=== PATIENT | female | born 1970 | race Caucasian/White ===

== ENCOUNTER 2020-07-11 01:28 | Emergency (ER) | payer MEDICAID, SELFPAY ==
[2020-07-11] VITALS (11 sets, daily range): BP systolic 133–193; BP diastolic 103–113; PULSE 92–102; RESP 18–22; TEMP 36.3; O2SAT 95–98; BMI 49.3
--- NOTE | 2020-07-11 01:43 | W.ED.ABDPA2 ---
HPI - Abdominal Pain General: Chief Complaint: Abdominal Pain Stated Complaint: kidney pain Time Seen by Provider: 07/11/20 01:35 Source: patient and EMS Mode of arrival: EMS Limitations: no limitations History of Present Illness: HPI narrative: Mrs. Ignacio is a very nice 50-year-old female who comes in complaining of 1 hours worth of suprapubic abdominal pain and low back pain. Patient states that this feels like a urinary tract infection to her. She has urinary frequency, urgency and dysuria. Patient initially had just suprapubic dull abdominal pain but now she has associated low back pain. The pain in her back is located across the iliac crest. She has no pain up higher or in the flanks. Patient does not have any vaginal discharge or bleeding and is postmenopausal. She is nauseated but denies any vomiting. She denies any change in her bowel habits such as diarrhea or constipation. Patient came in very quickly because she has a history of chronic kidney disease that she did not want a urinary tract infection to threaten her kidney function. Patient denies any exacerbating or alleviating factors. She denies any other complaints or concerns. Associated Symptoms: Reports dysuria and nausea; Denies chills, coffee ground emesis, constipation, GI cramping, diarrhea, fever(s), heartburn, hematochezia, hematuria, hematemesis, melena, syncope and vomiting Review of Systems Const: Denies: fever(s), chills, body aches, fatigue, malaise or diaphoresis Eyes: Denies: change in vision, blurry vision, photophobia, eye discomfort, eye discharge, eye redness or yellow eyes ENMT: Denies: throat pain, odynophagia, hoarseness, swelling of lips/tongue, ear or mastoid pain, ear discharge, change in hearing or nasal discharge Card: Denies: chest pain, palpitations, irregular heart rhythm, edema, lightheadedness, syncope, pre-syncope, dyspnea on exertion or orthopnea Resp: Denies: dyspnea, productive cough, non-productive cough, wheezing, hemoptysis or chest congestion GI: Reports: abdominal pain and nausea; Denies: vomiting, hematemesis, coffee ground emesis, heartburn, diarrhea, constipation, GI cramping, hematochezia or melena : Reports: dysuria, urinary frequency and urinary urgency; Denies: flank pain or hematuria Musc: Denies: neck pain, extremity pain, extremity swelling, joint pain, joint swelling, joint redness, joint warmth or joint stiffness Skin/Breast: Denies: rash, pruritus, erythema, skin pain or skin tenderness Neuro: Denies: headache(s), numbness in extremities, weakness in extremities, sensory changes, lack of coordination, difficulty walking, dizziness, vertigo, confusion, Slurred speech present or seizure-like activity Morgan/Lymph: Denies: easy bruising, easy bleeding, petechiae, purpura or enlarged lymph nodes All/Imm: Denies: urticaria, throat swelling, tongue swelling, facial swelling or acute wheezing PFSH ED PFSH: Medical History Asthma CKD (chronic kidney disease) COPD (chronic obstructive pulmonary disease) Depression DM type 2 (diabetes mellitus, type 2) Hypertension Migraines Neuropathy TIA (transient ischemic attack) Physical Exam Const: COMMON NORMALS: no acute distress, patient oriented x3, no limitations and alert GENERAL APPEARANCE: cooperative HENMT: COMMON NORMALS: normocephalic, atraumatic, external ears normal, EAC's normal and Normal external nose present HEAD & SCALP: normal to inspection, normocephalic and atraumatic FACE & SINUS: normal facial exam and face symmetric NOSE: Normal external nose present and Normal nares present EXTERNAL EAR: Yes external ears normal EXTERNAL AUDITORY CANAL: EAC's normal MOUTH: Normal oral and palatal mucosa present, lip normal and tongue normal Eye: COMMON NORMALS: Equal, round and reactive pupils present and conjunctivae normal GENERAL EYE: appearance normal, both eyes and all related structures ALIGNMENT: Yes alignment normal PERIORBITAL: periorbital findings normal EYELID: eyelids normal CONJUNCTIVA: Yes conjunctivae normal SCLERA: sclerae normal PUPIL: Yes Equal, round and reactive pupils present Neck/C-Spine: COMMON NORMALS: full ROM, no lymphadenopathy, supple, no meningeal signs and no JVD GENERAL: Yes normal visual inspection and Yes trachea midline Chest: COMMONS NORMALS: normal inspection of the chest and normal palpation of entire chest wall Resp: COMMON NORMALS: normal respiratory effort, No retractions, No use of accessory muscles and clear to auscultation bilaterally EFFORT & INSPECTION: Yes able to speak in complete sentences and Yes symmetric chest movement AUSCULTATION: clear to auscultation bilaterally, no crackles, no rales, no rhonchi and no wheezes Cardio: COMMON NORMALS: no JVD, regular rate, regular rhythm, S1 normal heart sound present and S2 normal heart sound present RATE: regular rate RHYTHM: regular rhythm HEART SOUNDS: S1 normal heart sound present, S2 normal heart sound present, no click, no gallops, no murmurs and no rubs GI: COMMON NORMALS: Soft to palpation and No hepatosplenomegaly present PALPATION: Yes Soft to palpation, Yes Tenderness to palpation present (GI) (Mild in the suprapubic area), No Guarding due to palpation present (GI), No Rigid due to palpation, Yes No hepatosplenomegaly present, No Hernia present, No Palpable mass present and No Pulsatile mass present : COMMON NORMALS: Yes no CVA tenderness BLADDER/KIDNEY EXAM: Yes no CVA tenderness EXTERNAL FEMALE EXAM: No Hernia present Back/Pelvis: COMMON NORMALS: no CVA tenderness, thoracic and lumbar spine normal to inspection, no thoracic nor lumbar tenderness and thoraco-lumbar ROM normal Extremity: COMMON NORMALS: normal to inspection, full ROM, capillary refill normal, no joint enlargement, no clubbing, cyanosis or edema and no calf tenderness Neuro: COMMON NORMALS: patient oriented x3, CN's II-XII intact bilaterally, moves all extremities, no focal motor deficits and no sensory deficits noted SENSORIUM/ORIENTATION: Yes alert MENINGEAL SIGNS: Yes no meningeal signs SPEECH: speech normal Psych: COMMON NORMALS: mental status grossly normal, Normal thought process present, cooperative, normal affect, speech normal and activity/motor behavior normal SPEECH: Yes normal speech THOUGHT PROCESS: Normal thought process present Skin: COMMON NORMALS: no rashes or lesions noted, turgor normal, no jaundice, no petechiae and no mottling GENERAL SKIN EXAM: no rashes or lesions noted and turgor normal Course Vital Signs: Vital signs: Vital Signs Temperature 97.4 F L 07/11/20 01:29 Pulse Rate 102 H 07/11/20 01:29 Respiratory Rate 18 07/11/20 01:57 Blood Pressure 193/109 07/11/20 01:33 Pulse Oximetry 96 07/11/20 01:57 MDM - Abdominal Pain MDM Narrative: Medical decision making narrative: [id number] -Ms. Ignacio is a very nice 50-year-old female who comes in with burning/cramping suprapubic abdominal pain that radiated through to both sides of her back. On exam she has no evidence of tenderness at McBurney's point or in the right lower quadrant. There is no CVA tenderness. Patient is afebrile, has normal white count is not vomiting. I believe this is a urinary tract infection isolated to her bladder. Patient states that is what it feels like her. I will give her an IV dose of Rocephin here and start her on cefdinir and Pyridium at home. Patient does not appear septic, does not appear DKA or have to have a more serious than a cystitis at this time. Differential Diagnosis: Differential diagnosis abdominal pain: Likely abdominal pain, acute appendicitis, calculus of kidney, constipation, diverticulitis, gastroenteritis, pancreatitis and small bowel obstruction Lab Data: Attestation: I reviewed the patient's lab results. Labs: Lab Results 07/11/20 07/11/20 07/11/20 Range/Units 01:47 01:47 01:47 WBC 7.9 (4.0-10.0) 10^3/ uL RBC 4.72 (4.1-5.3) 10^6/u L Hgb 13.9 (11.5-15.3) g/dL Hct 41.6 (37.0-47.0) % MCV 88.1 (81-99) fL MCH 29.4 (28.0-34.0) pg MCHC 33.4 (30.0-36.0) g/dL RDW 12.3 (12.1-15.1) % Plt Count 200 (130-400) 10^3/c mm MPV 10.3 (7.4-10.4) fL Neut % (Auto) 60.6 % Lymph % (Auto) 25.4 % [place] % (Auto) 8.1 % Eos % (Auto) 4.6 % Baso % (Auto) 0.8 % Neut # (Auto) 4.77 (1.8-7.7) 10^3/u L Lymph # (Auto) 2.0 (0.8-4.8) 10^3/u L [place] # (Auto) 0.6 (0.2-0.9) 10^3/u L Eos # (Auto) 0.4 (0.0-0.8) 10^3/u L Baso # (Auto) 0.1 (0.0-0.1) 10^3/u L Nucleated RBC % (a uto) 0 % Nucleated RBCs # 0.0 /100WBC Sodium 140 (136-145) mmol/L Potassium 3.9 (3.5-5.1) mmol/L Chloride 108 H (98-107) mmol/L Carbon Dioxide 23 (22-29) mmol/L Anion Gap 12.9 (5-19) BUN 9 (6-20) mg/dL Creatinine 1.0 H (0.5-0.9) mg/dL GFR Calculation 58.5 L (90-130) mL/min Glucose 303 H (65-115) mg/dL Calculated Osmolal ity 300 H (285-295) mOsm/k g Calcium 9.5 (8.5-10.5) mg/dL Total Bilirubin 0.5 (0.15-1.2) mg/dL AST 30 (0-32) U/L ALT 49 H (0-33) U/L Alkaline Phosphata se 81 (35-105) IU/L Total Protein 6.1 L (6.6-8.7) g/dL Albumin 4.1 (3.5-5.2) g/dL Globulin 2.0 (1.3-4.6) g/dL Lipase 35 (13-60) U/L HCG, Qual Negative (Negative) Urine Color (Yellow) Urine Appearance (CLEAR) Urine pH (5-7) Ur Specific Gravit y (1.005-1.030) Urine Protein (Negative) Urine Glucose (UA) (Normal) Urine Ketones (Negative) Urine Blood (Negative) Urine Nitrate (Negative) Urine Bilirubin (Negative) Urine Urobilinogen (Negative) mg/dL Ur Leukocyte Dulce ase (Negative) Urine RBC (0-2) /hpf Urine WBC (0-5) /hpf Ur Squamous Epith Cells (0-5) /hpf Amorphous Sediment Urine Bacteria (NONE) /hpf Urine Mucus /hpf 07/11/20 Range/Units 01:47 WBC (4.0-10.0) 10^3/ uL RBC (4.1-5.3) 10^6/u L Hgb (11.5-15.3) g/dL Hct (37.0-47.0) % MCV (81-99) fL MCH (28.0-34.0) pg MCHC (30.0-36.0) g/dL RDW (12.1-15.1) % Plt Count (130-400) 10^3/c mm MPV (7.4-10.4) fL Neut % (Auto) % Lymph % (Auto) % [place] % (Auto) % Eos % (Auto) % Baso % (Auto) % Neut # (Auto) (1.8-7.7) 10^3/u L Lymph # (Auto) (0.8-4.8) 10^3/u L [place] # (Auto) (0.2-0.9) 10^3/u L Eos # (Auto) (0.0-0.8) 10^3/u L Baso # (Auto) (0.0-0.1) 10^3/u L Nucleated RBC % (a uto) % Nucleated RBCs # /100WBC Sodium (136-145) mmol/L Potassium (3.5-5.1) mmol/L Chloride (98-107) mmol/L Carbon Dioxide (22-29) mmol/L Anion Gap (5-19) BUN (6-20) mg/dL Creatinine (0.5-0.9) mg/dL GFR Calculation (90-130) mL/min Glucose (65-115) mg/dL Calculated Osmolal ity (285-295) mOsm/k g Calcium (8.5-10.5) mg/dL Total Bilirubin (0.15-1.2) mg/dL AST (0-32) U/L ALT (0-33) U/L Alkaline Phosphata se (35-105) IU/L Total Protein (6.6-8.7) g/dL Albumin (3.5-5.2) g/dL Globulin (1.3-4.6) g/dL Lipase (13-60) U/L HCG, Qual (Negative) Urine Color Yellow (Yellow) Urine Appearance Cloudy A (CLEAR) Urine pH 5.0 (5-7) Ur Specific Gravit y 1.025 (1.005-1.030) Urine Protein 1+ H (Negative) Urine Glucose (UA) 4+ H (Normal) Urine Ketones 1+ H (Negative) Urine Blood 3+ H (Negative) Urine Nitrate Positive H (Negative) Urine Bilirubin Neg (Negative) Urine Urobilinogen 1 H (Negative) mg/dL Ur Leukocyte Dulce ase 2+ H (Negative) Urine RBC 0-4 H (0-2) /hpf Urine WBC Too numerous to c nt H (0-5) /hpf Ur Squamous Epith Cells None (0-5) /hpf Amorphous Sediment Not Reportable Urine Bacteria 3+ H (NONE) /hpf Urine Mucus 2+ /hpf Discharge Plan Discharge Patient Disposition: Home Clinical Impression: UTI (urinary tract infection) Qualifiers: Urinary tract infection type: acute cystitis Hematuria presence: without hematuria Qualified Code(s): N30.00 - Acute cystitis without hematuria Condition: Stable Prescriptions: New Pyridium 200 mg tablet 200 mg PO Q8H PRN (Reason: pain) 2 Days Qty: 6 RF: 0 cefdinir 300 mg capsule 300 mg PO Q12H 10 Days Qty: 20 RF: 0 No Action prazosin 2 mg Capsule 4 mg PO QPM RF: 0 Rexulti 2 mg Tablet 2 mg PO DAILY RF: 0 cetirizine 10 mg Tablet 10 mg PO DAILY RF: 0 metoprolol tartrate 100 mg Tablet 100 mg PO BID RF: 0 clopidogrel 75 mg Tablet 75 mg PO DAILY RF: 0 lisinopril 10 mg Tablet 10 mg PO DAILY RF: 0 gabapentin 300 mg Capsule 300 mg PO TID RF: 0 hydroxyzine pamoate 25 mg Capsule 25 mg PO PRN PRN (Reason: Hypertension) RF: 0 eszopiclone 3 mg Tablet 3 mg PO BEDTIME RF: 0 topiramate 50 mg Capsule,Sprinkle,Er 24hr 50 mg PO DAILY RF: 0 duloxetine 60 mg Capsule, Delayed Rel Sprinkle 60 mg PO BID RF: 0 Discharge Orders: Discharge ED (Routine); Ordered 07/11/20 Ordered By: Silvia Barnard Referrals: Janessa Winslow DO [Physician] - 1-3 days Discharge Diet: Advance as tolerated Discharge Activity: Increase activity as tolerated Patient Instructions: Urinary Tract Infection in Women (ED) Activity Restrictions/Additional Instructions: Please return to the ER immediately for any of the signs or symptoms listed on your discharge instruction sheets, worsening/changing of your symptoms, you are not getting better as quickly as expected, or for ANY other cause or concerns. Return to the ER for worsening of your pain, fever, vomiting, or for any other cause for concern. Coding Level of Care Code ED Elementary Ell Teacher for Chg Fwd Exam Comprehensive
[2020-07-11 01:54] LABS: Basophils # 0.1 10^3/uL (0.0-0.1); Basophils % 0.8 %; Eosinophils # 0.4 10^3/uL (0.0-0.8); Eosinophils % 4.6 %; Hematocrit 41.6 % (37.0-47.0); Hemoglobin 13.9 g/dL (11.5-15.3); Lymphocytes % 25.4 %; Mean Corpuscular HGB Conc 33.4 g/dL (30.0-36.0); Mean Corpuscular Hemoglobin 29.4 pg (28.0-34.0); Mean Corpuscular Volume 88.1 fL (81-99); Mean Platelet Volume 10.3 fL (7.4-10.4); Monocytes # 0.6 10^3/uL (0.2-0.9); Monocytes % 8.1 %; Neutrophils # 4.77 10^3/uL (1.8-7.7); Neutrophils % 60.6 %; Nucleated Red Blood Cells % 0 %; Platelet Count 200 10^3/cmm (130-400); Red Blood Count 4.72 10^6/uL (4.1-5.3); Red Cell Distribution Width 12.3 % (12.1-15.1); White Blood Count 7.9 10^3/uL (4.0-10.0)
[2020-07-11] MEDS: ondansetron 2 mg/ML SDV 2 mL 4 MG IVP (01:55)
[2020-07-11] MEDS: sodium chloride 0.9% 1,000 ML 999 ML IV (01:57)
[2020-07-11] MEDS: morphine 4 mg/mL SDV 1 mL IVP (01:57)
[2020-07-11 02:04] LABS: HCG, Serum Qual Negative (Negative)
[2020-07-11 02:13] LABS: Alanine Aminotransferase 49 U/L (0-33); Albumin Level 4.1 g/dL (3.5-5.2); Alkaline Phosphatase 81 IU/L (35-105); Anion Gap 12.9 (5-19); Aspartate Amino Transferase 30 U/L (0-32); Blood Urea Nitrogen 9 mg/dL (6-20); Calcium 9.5 mg/dL (8.5-10.5); Carbon Dioxide 23 mmol/L (22-29); Chloride 108 mmol/L (98-107); Glomerular Filtration Rate 58.5 mL/min (90-130); Glucose 303 mg/dL (65-115); Lipase 35 U/L (13-60); Osmolality Calculated 300 mOsm/kg (285-295); Potassium 3.9 mmol/L (3.5-5.1); Sodium 140 mmol/L (136-145); Total Bilirubin 0.5 mg/dL (0.15-1.2); Total Protein 6.1 g/dL (6.6-8.7)
[2020-07-11 02:32] LABS: Glucose Urine UA 4+ (Normal); Protein Urine 1+ (Negative); Specific Gravity, Urine 1.025 (1.005-1.030); Urine Appearance Cloudy (CLEAR); Urine Color Yellow (Yellow)
[2020-07-11 02:33] LABS: Add Urine Culture? No; Bacteria Urine 3+ /hpf; Bilirubin Urine Neg (Negative); Blood Urine 3+ (Negative); Ketones Urine 1+ (Negative); Leukocyte Esterase Urine 2+ (Negative); Mucus Urine 2+ /hpf; Nitrate Urine Positive (Negative); RBC Urine 0-4 /hpf (0-2); Urobilinogen Urine 1 mg/dL (Negative); WBC Urine TOO NUMEROUS TO CNT /hpf (0-5)
[2020-07-11] MEDS: phenazopyridine 100 mg Tablet 200 MG PO (02:46)
[2020-07-11] MEDS: ciprofloxacin 500 mg Tablet PO (03:05)
[2020-07-11 03:18] LABS: Ketone (Acetest) Serum Negative (Negative)
== END 2020-07-11 03:57 | disposition home or self-care (01) ==
PROVIDERS: Emergency Provider Emergency Medicine
DX: N30.00 Acute cystitis without hematuria (principal); Z79.02 Long term (current) use of antithrombotics/antiplatelets; J44.9 Chronic obstructive pulmonary disease, unspecified; I10 Essential (primary) hypertension; Z86.73 Personal history of transient ischemic attack (TIA), and cerebral infarction without residual deficits; E11.40 Type 2 diabetes mellitus with diabetic neuropathy, unspecified
CPT/HCPCS: 12345; 80053; 81001; 82009; 83690; 84703; 85025; 96365; 96375; 99283; J0696; J2270; J2405; J7030

== ENCOUNTER 2020-08-11 19:08 | Emergency (ER) | payer MEDICAID, SELFPAY ==
--- NOTE | 2020-08-11 19:12 | XRR_ITS ---
PROCEDURE INFORMATION: Exam: XR Chest, 1 View Exam date and time: 08/11/2020 7:41 PM Age: 50 years old Clinical indication: Cough and shortness of breath TECHNIQUE: Imaging protocol: XR of the chest Views: 1 view. COMPARISON: No relevant prior studies available. FINDINGS: Lungs: Unremarkable. No consolidation. Pleural space: Unremarkable. No pleural effusion. No pneumothorax. Heart/Mediastinum: Unremarkable. No cardiomegaly. Bones/joints: Unremarkable. XR/XR chest 1V portable [id number] IMPRESSION: No acute findings.
[2020-08-11 19:23] VITALS: BP 166/120; PULSE 94; RESP 18; TEMP 36.7; O2SAT 98; BMI 49.3
--- NOTE | 2020-08-11 20:03 | W.ED.COVID ---
HPI - COVID General: Chief Complaint: COVID symptoms Stated Complaint: nausea, SOB, fever, muscle aches, coughing Time Seen by Provider: 08/11/20 19:30 Source: patient Mode of arrival: ambulatory Limitations: no limitations Triage information: Has fever, cough or shortness of breath. No known COVID + exposure last 14 days History of Present Illness: HPI Narrative: 50-year-old female who is concerned she may have Covid. She is here with her significant other who has had Covid-like symptoms as well and cough sick contacts at work. She states she had a cough over the last 10 days along with body aches. Patient here does not require any oxygen. She denies any worsening improving factors. COVID 19 common symptoms: positive chills, non-productive cough and body aches; negative headache(s), throat pain, nausea, vomiting or diarrhea COVID 19 other sytmptoms: negative chest pain COVID Results: Nasal/Oral Coronavirus 2019 PCR Pending 08/11/20 19:44 08/11/20 Review of Systems Const: Reports: chills and body aches Eyes: Denies: blurry vision or eye discomfort ENMT: Denies: throat pain or dental pain Card: Denies: chest pain Resp: Reports: non-productive cough GI: Denies: abdominal pain, nausea, vomiting or diarrhea : Denies: dysuria Musc: Denies: neck pain or back pain Skin/Breast: Denies: rash Neuro: Denies: headache(s) Psych: Denies: depression Morgan/Lymph: Denies: easy bruising All/Imm: Denies: urticaria PFS ED PFSH: Medical History Asthma CKD (chronic kidney disease) COPD (chronic obstructive pulmonary disease) Depression DM type 2 (diabetes mellitus, type 2) Hypertension Migraines Neuropathy TIA (transient ischemic attack) Physical Exam Const: COMMON NORMALS: no acute distress, patient oriented x3 and healthy appearing HENMT: COMMON NORMALS: normocephalic and atraumatic HEAD & SCALP: normocephalic and atraumatic Eye: COMMON NORMALS: Equal, round and reactive pupils present and EOMs intact bilaterally PUPIL: Yes Equal, round and reactive pupils present Neck/C-Spine: COMMON NORMALS: full ROM and supple Chest: COMMONS NORMALS: normal inspection of the chest and normal palpation of entire chest wall Resp: COMMON NORMALS: normal respiratory effort, No retractions, No use of accessory muscles and clear to auscultation bilaterally AUSCULTATION: clear to auscultation bilaterally Cardio: COMMON NORMALS: regular rate, regular rhythm and No murmurs present (Cardio) RATE: regular rate RHYTHM: regular rhythm GI: COMMON NORMALS: Normal to inspection, nondistended, normoactive bowel sounds present, Soft to palpation, non-tender and no masses PALPATION: Yes Soft to palpation Extremity: COMMON NORMALS: normal to inspection and full ROM Neuro: COMMON NORMALS: patient oriented x3, moves all extremities and no focal motor deficits Psych: COMMON NORMALS: mental status grossly normal, Normal thought process present and cooperative THOUGHT PROCESS: Normal thought process present Skin: COMMON NORMALS: no rashes or lesions noted and no wounds GENERAL SKIN EXAM: no rashes or lesions noted Course Vital Signs: Vital signs: Vital Signs Temperature 98.1 F 08/11/20 19:23 Pulse Rate 94 08/11/20 19:23 Respiratory Rate 18 08/11/20 19:23 Blood Pressure 166/120 08/11/20 19:23 Pulse Oximetry 98 08/11/20 19:23 MDM - COVID MDM Narrative: Medical decision making narrative: Patient presents here with Covid-like symptoms. She is well-appearing here not requiring any oxygen. Patient's x-ray is normal. We will do a Covid swab and she is stable for discharge. She is to return if worsening Imaging Data: CXR: Attestation: I personally reviewed and interpreted this imaging study as follows: My impression: No acute abnormality COVID Results: Nasal/Oral Coronavirus 2019 PCR Pending 08/11/20 19:44 08/11/20 Discharge Plan Discharge Patient Disposition: Home Clinical Impression: Suspected severe acute respiratory syndrome coronavirus 2 (SARS-CoV-2) infection, Suspected 2019-nCoV infection Condition: Stable Prescriptions: No Action prazosin 2 mg Capsule 4 mg PO QPM RF: 0 Rexulti 2 mg Tablet 2 mg PO DAILY RF: 0 cetirizine 10 mg Tablet 10 mg PO DAILY RF: 0 metoprolol tartrate 100 mg Tablet 100 mg PO BID RF: 0 clopidogrel 75 mg Tablet 75 mg PO DAILY RF: 0 lisinopril 10 mg Tablet 10 mg PO DAILY RF: 0 gabapentin 300 mg Capsule 300 mg PO TID RF: 0 hydroxyzine pamoate 25 mg Capsule 25 mg PO PRN PRN (Reason: Hypertension) RF: 0 eszopiclone 3 mg Tablet 3 mg PO BEDTIME RF: 0 topiramate 50 mg Capsule,Sprinkle,Er 24hr 50 mg PO DAILY RF: 0 duloxetine 60 mg Capsule, Delayed Rel Sprinkle 60 mg PO BID RF: 0 Cipro 500 mg tablet 500 mg PO BID Qty: 20 RF: 0 Humalog Pen 100 unit/mL Insulin Pen 20 unit SUBCUT TID RF: 0 Lantus U-100 Insulin 100 unit/mL Cartridge 50 unit SUBCUT QPM RF: 0 Victoza 3-Benedict 0.6 mg/0.1 mL (18 mg/3 mL) Pen Injector 1.2 mg SUBCUT DAILY RF: 0 Discharge Orders: Discharge ED (Routine); Ordered 08/11/20 Ordered By: Lennox Anthony Discharge Diet: Advance as tolerated Discharge Activity: Resume usual activity Patient Instructions: Upper Respiratory Infection (ED) Coding Level of Care Code ED Material Crew Supervisor for Jd Bellamy
[2020-08-11 20:16] VITALS: O2SAT 96
[2020-08-12 16:51] LABS: Coronavirus Test Green County Not Detected
== END 2020-08-11 20:17 | disposition home or self-care (01) ==
PROVIDERS: Emergency Provider Emergency Medicine
DX: Z20.828 Contact with and (suspected) exposure to other viral communicable diseases (principal); Z79.02 Long term (current) use of antithrombotics/antiplatelets; Z79.4 Long term (current) use of insulin; J44.9 Chronic obstructive pulmonary disease, unspecified; I10 Essential (primary) hypertension; Z86.73 Personal history of transient ischemic attack (TIA), and cerebral infarction without residual deficits; E11.40 Type 2 diabetes mellitus with diabetic neuropathy, unspecified
CPT/HCPCS: 12345; 71045; 87635; 99281; 99283

== ENCOUNTER 2020-09-18 18:08 | Emergency (ER) | payer MEDICAID, SELFPAY ==
[2020-09-18] VITALS (8 sets, daily range): BP systolic 118–174; BP diastolic 78–137; PULSE 84–128; RESP 14–18; TEMP 37.3; O2SAT 94–98; BMI 47.0
--- NOTE | 2020-09-18 18:31 | CTR_ITS ---
PROCEDURE INFORMATION: Exam: CT Abdomen And Pelvis With Contrast Exam date and time: 09/18/2020 7:14 PM Age: 50 years old Clinical indication: Abdominal pain; Generalized; Prior surgery; Surgery type: Tubal, gb; Patient HX: Gen. Abd pain since yesterday. Nausea, constipation since Tuesday. TECHNIQUE: Imaging protocol: Computed tomography of the abdomen and pelvis with contrast. Radiation optimization: All CT scans at this facility use at least one of these dose optimization techniques: automated exposure control; mA and/or kV adjustment per patient size (includes targeted exams where dose is matched to clinical indication); or iterative reconstruction. Contrast material: OMNI 300; Contrast volume: 95 ml; Contrast route: INTRAVENOUS (IV); COMPARISON: No relevant prior studies available. RADIATION DOSE METRICS: Total DLP (mGy-cm): 1963.69 FINDINGS: Liver: Unremarkable.No mass. Gallbladder and bile ducts: There has been a cholecystectomy. There is no common bile duct dilation. Pancreas: Normal. No ductal dilation. Spleen: Normal. No splenomegaly. Adrenal glands: Normal. No mass. Kidneys and ureters: There is no evidence of hydronephrosis. There is no evidence of renal calcifications. Stomach and bowel: There is no evidence of intestinal perforation or obstruction. There is no evidence of colitis/diverticulitis. Appendix: A normal appendix is identified. Intraperitoneal space: Unremarkable. No free air. No significant fluid collection. Vasculature: Unremarkable.No abdominal aortic aneurysm. Lymph nodes: Unremarkable.No enlarged lymph nodes. Urinary bladder: There is nonspecific bladder wall thickening. This may be related to incomplete distention. Reproductive: Probable uterine fibroid is noted. The uterus, ovaries and adnexa are unremarkable. Bones/joints: Unremarkable. No acute fracture. Soft tissues: Unremarkable. CT/CT abdomen pelvis w con* [id number] IMPRESSION: No acute abnormality. Radiation Dose CTDIVOL = (mGy): DLP = 1963.69 (mGy-cm)
[2020-09-18] MEDS: sodium chloride 0.9% 1,000 ML 999 ML IV (18:48)
[2020-09-18] MEDS: HYDROmorphone 1 mg/mL INJ 1 mL IVP (18:48)
[2020-09-18] MEDS: ondansetron 2 mg/ML SDV 2 mL 4 MG IVP (18:48)
[2020-09-18 18:54] LABS: Basophils % 0.4 %; Eosinophils # 0.1 10^3/uL (0.0-0.8); Hematocrit 46.9 % (37.0-47.0); Hemoglobin 16.1 g/dL (11.5-15.3); Lymphocytes # 0.9 10^3/uL (0.8-4.8); Lymphocytes % 9.5 %; Mean Corpuscular HGB Conc 34.3 g/dL (30.0-36.0); Mean Corpuscular Hemoglobin 28.9 pg (28.0-34.0); Mean Corpuscular Volume 84.1 fL (81-99); Monocytes # 0.9 10^3/uL (0.2-0.9); Neutrophils # 7.91 10^3/uL (1.8-7.7); Neutrophils % 79.6 %; Nucleated Red Blood Cells % 0 %; Platelet Count 193 10^3/cmm (130-400); Red Blood Count 5.58 10^6/uL (4.1-5.3); Red Cell Distribution Width 11.6 % (12.1-15.1); White Blood Count 9.9 10^3/uL (4.0-10.0)
--- NOTE | 2020-09-18 19:03 | W.ED.ABDPA2 ---
HPI - Abdominal Pain General: Chief Complaint: Abdominal Pain Stated Complaint: BILATERAL SIDE PAIN, PAINFUL URINATION Time Seen by Provider: 09/18/20 18:10 Source: patient Mode of arrival: ambulatory Limitations: no limitations History of Present Illness: HPI narrative: He 1-year-old female states she had bilateral flank pain that radiates to her abdomen. She states that the pain is been sharp in nature and rates it a 9 out of 10. She states it is worse in her right lower quadrant. She is also had very painful urination. She denies any discharge. She had slight headache and subjective fevers. MD elicited complaint: abdominal pain and flank pain Associated Symptoms: Reports dysuria; Denies chills and fever(s) Review of Systems Const: Denies: fever(s), chills, body aches or change in appetite Eyes: Denies: blurry vision or eye discomfort ENMT: Denies: throat pain or dental pain Card: Denies: chest pain Resp: Denies: dyspnea GI: Reports: abdominal pain : Reports: difficulty voiding and dysuria Musc: Denies: neck pain or back pain Skin/Breast: Denies: rash Neuro: Denies: headache(s) Psych: Denies: depression Morgan/Lymph: Denies: easy bruising All/Imm: Denies: urticaria PFSH ED PFSH: Medical History Asthma CKD (chronic kidney disease) COPD (chronic obstructive pulmonary disease) Depression DM type 2 (diabetes mellitus, type 2) Hypertension Migraines Neuropathy TIA (transient ischemic attack) Physical Exam Const: COMMON NORMALS: no acute distress, patient oriented x3 and healthy appearing HENMT: COMMON NORMALS: normocephalic and atraumatic HEAD & SCALP: normocephalic and atraumatic Eye: COMMON NORMALS: Equal, round and reactive pupils present and EOMs intact bilaterally PUPIL: Yes Equal, round and reactive pupils present Neck/C-Spine: COMMON NORMALS: full ROM and supple Chest: COMMONS NORMALS: normal inspection of the chest and normal palpation of entire chest wall Resp: COMMON NORMALS: normal respiratory effort, No retractions, No use of accessory muscles and clear to auscultation bilaterally AUSCULTATION: clear to auscultation bilaterally Cardio: COMMON NORMALS: regular rate, regular rhythm and No murmurs present (Cardio) RATE: regular rate RHYTHM: regular rhythm GI: COMMON NORMALS: Normal to inspection, nondistended, normoactive bowel sounds present, Soft to palpation and no masses PALPATION: Yes Soft to palpation and Yes Tenderness to palpation present (GI) Details: RLQ Extremity: COMMON NORMALS: normal to inspection and full ROM Neuro: COMMON NORMALS: patient oriented x3, moves all extremities and no focal motor deficits Psych: COMMON NORMALS: mental status grossly normal, Normal thought process present and cooperative THOUGHT PROCESS: Normal thought process present Skin: COMMON NORMALS: no rashes or lesions noted and no wounds GENERAL SKIN EXAM: no rashes or lesions noted Course Vital Signs: Vital signs: Vital Signs Temperature 99.1 F 09/18/20 18:12 Pulse Rate 101 H 09/18/20 20:00 Respiratory Rate 14 09/18/20 20:09 Blood Pressure 118/85 09/18/20 20:00 Pulse Oximetry 94 09/18/20 20:00 MDM - Abdominal Pain MDM Narrative: Medical decision making narrative: Patient presents here with dysuria and does have a urinary tract infection. CT showed no signs of pyelonephritis or appendicitis. She did have some chest pain after the Dilaudid likely from the opioid. Did an EKG and it was normal and it resolved very shortly after. I do not believe she has any signs of acute coronary syndrome. Will prescribe her ciprofloxacin with pain meds and nausea medicine. She is to follow-up with PCP in 3 to 5 days return to the ER if worsening. She understands and agrees to the plan. Lab Data: Labs: Lab Results 09/18/20 09/18/20 09/18/20 Range/Units 18:47 18:47 19:00 WBC 9.9 (4.0-10.0) 10^3/ uL RBC 5.58 H (4.1-5.3) 10^6/u L Hgb 16.1 H (11.5-15.3) g/dL Hct 46.9 (37.0-47.0) % MCV 84.1 (81-99) fL MCH 28.9 (28.0-34.0) pg MCHC 34.3 (30.0-36.0) g/dL RDW 11.6 L (12.1-15.1) % Plt Count 193 (130-400) 10^3/c mm MPV 10.0 (7.4-10.4) fL Neut % (Auto) 79.6 % Lymph % (Auto) 9.5 % [place] % (Auto) 9.0 % Eos % (Auto) 1.0 % Baso % (Auto) 0.4 % Neut # (Auto) 7.91 H (1.8-7.7) 10^3/u L Lymph # (Auto) 0.9 (0.8-4.8) 10^3/u L [place] # (Auto) 0.9 (0.2-0.9) 10^3/u L Eos # (Auto) 0.1 (0.0-0.8) 10^3/u L Baso # (Auto) 0.0 (0.0-0.1) 10^3/u L Nucleated RBC % (a uto) 0 % Nucleated RBCs # 0.0 /100WBC Sodium 133 L (136-145) mmol/L Potassium 3.8 (3.5-5.1) mmol/L Chloride 97 L (98-107) mmol/L Carbon Dioxide 24 (22-29) mmol/L Anion Gap 15.8 (5-19) BUN 13 (6-20) mg/dL Creatinine 1.1 H (0.5-0.9) mg/dL GFR Calculation 52.4 L (90-130) mL/min Glucose 326 H (65-115) mg/dL Calculated Osmolal ity 289 (285-295) mOsm/k g Calcium 9.1 (8.5-10.5) mg/dL Total Bilirubin 0.9 (0.15-1.2) mg/dL AST 15 (0-32) U/L ALT 28 (0-33) U/L Alkaline Phosphata se 126 H (35-105) IU/L Total Protein 6.7 (6.6-8.7) g/dL Albumin 4.0 (3.5-5.2) g/dL Globulin 2.7 (1.3-4.6) g/dL Lipase 15 (13-60) U/L Urine Color Yellow (Yellow) Urine Appearance Cloudy (CLEAR) Urine pH 5 (5-7) Ur Specific Gravit y 1.020 (1.005-1.030) Urine Protein 1+ H (Negative) Urine Glucose (UA) 4+ H (Normal) Urine Ketones 1+ H (Negative) Urine Blood 3+ H (Negative) Urine Nitrate Positive H (Negative) Urine Bilirubin Neg (Negative) Urine Urobilinogen Norm (Negative) mg/dL Ur Leukocyte Dulce ase 2+ H (Negative) Urine RBC 10-15 H (0-2) /hpf Urine WBC 25-40 H (0-5) /hpf Ur Squamous Epith Cells 0-4 H (0-5) /hpf Ur Transition Epit h Cell 0-4 /hpf Amorphous Sediment Not Reportable Urine Bacteria None (NONE) /hpf Imaging Data ^: CT Abd/Pel: Attestation: I personally reviewed and interpreted this imaging study as follows: Radiologist's impression: [address] [address] [address] Scan Report Signed Patient: Vanesa Ignacio Unit #: [id number] : 1970 Age/Sex: 50 / F ADM Date: 09/18/20 Loc: ER Room/Bed: Attending Dr: Ordering Provider/Ordering MD: Lennox Anthony MD Date of Service: 09/18/20 Procedure(s): CT abdomen pelvis w con* [id number] Accession Number(s): [id number] Report Number: [id number] PROCEDURE INFORMATION: Exam: CT Abdomen And Pelvis With Contrast Exam date and time: 09/18/2020 7:14 PM Age: 50 years old Clinical indication: Abdominal pain; Generalized; Prior surgery; Surgery type: Tubal, gb; Patient HX: Gen. Abd pain since yesterday. Nausea, constipation since Tuesday. TECHNIQUE: Imaging protocol: Computed tomography of the abdomen and pelvis with contrast. Radiation optimization: All CT scans at this facility use at least one of these dose optimization techniques: automated exposure control; mA and/or kV adjustment per patient size (includes targeted exams where dose is matched to clinical indication); or iterative reconstruction. Contrast material: OMNI 300; Contrast volume: 95 ml; Contrast route: INTRAVENOUS (IV); COMPARISON: No relevant prior studies available. RADIATION DOSE METRICS: Total DLP (mGy-cm): 1963.69 FINDINGS: Liver: Unremarkable.No mass. Gallbladder and bile ducts: There has been a cholecystectomy. There is no common bile duct dilation. Pancreas: Normal. No ductal dilation. Spleen: Normal. No splenomegaly. Adrenal glands: Normal. No mass. Kidneys and ureters: There is no evidence of hydronephrosis. There is no evidence of renal calcifications. Stomach and bowel: There is no evidence of intestinal perforation or obstruction. There is no evidence of colitis/diverticulitis. Appendix: A normal appendix is identified. Intraperitoneal space: Unremarkable. No free air. No significant fluid collection. Vasculature: Unremarkable.No abdominal aortic aneurysm. Lymph nodes: Unremarkable.No enlarged lymph nodes. Urinary bladder: There is nonspecific bladder wall thickening. This may be related to incomplete distention. Reproductive: Probable uterine fibroid is noted. The uterus, ovaries and adnexa are unremarkable. Bones/joints: Unremarkable. No acute fracture. Soft tissues: Unremarkable. CT/CT abdomen pelvis w con* [id number] IMPRESSION: No acute abnormality. EKG Data ^: EKG 1: Attestation: I personally reviewed and interpreted this EKG as follows: EKG interpretation date: 09/18/20 EKG interpretation time: 20:04 Interpretation: sinus tach hr [address] or t wave abnormalities qrs 101 qtc 360 Discharge Plan Discharge Patient Disposition: Home Clinical Impression: Cystitis Condition: Stable Prescriptions: [place] 5-325 mg tablet 1 tab PO Q6H PRN (Reason: pain) Qty: 14 RF: 0 ondansetron 4 mg tablet,disintegrating 4 mg PO Q6H PRN (Reason: nausea and vomiting) Qty: 14 RF: 0 ciprofloxacin HCl 500 mg tablet 500 mg PO Q8H Qty: 21 RF: 0 No Action prazosin 2 mg Capsule 4 mg PO QPM RF: 0 Rexulti 2 mg Tablet 2 mg PO DAILY RF: 0 cetirizine 10 mg Tablet 10 mg PO DAILY RF: 0 metoprolol tartrate 100 mg Tablet 100 mg PO BID RF: 0 clopidogrel 75 mg Tablet 75 mg PO DAILY RF: 0 lisinopril 10 mg Tablet 10 mg PO DAILY RF: 0 gabapentin 300 mg Capsule 300 mg PO TID RF: 0 hydroxyzine pamoate 25 mg Capsule 25 mg PO PRN PRN (Reason: Hypertension) RF: 0 eszopiclone 3 mg Tablet 3 mg PO BEDTIME RF: 0 topiramate 50 mg Capsule,Sprinkle,Er 24hr 50 mg PO DAILY RF: 0 duloxetine 60 mg Capsule, Delayed Rel Sprinkle 60 mg PO BID RF: 0 Cipro 500 mg tablet 500 mg PO BID Qty: 20 RF: 0 Humalog Pen 100 unit/mL Insulin Pen 20 unit SUBCUT TID RF: 0 Lantus U-100 Insulin 100 unit/mL Cartridge 50 unit SUBCUT QPM RF: 0 Victoza 3-Benedict 0.6 mg/0.1 mL (18 mg/3 mL) Pen Injector 1.2 mg SUBCUT DAILY RF: 0 Discharge Orders: Discharge ED (Routine); Ordered 09/18/20 Ordered By: Lennox Anthony Referrals: Bubba Hernandez [Primary Care Provider] - 1-3 days Discharge Diet: Advance as tolerated Discharge Activity: Resume usual activity Patient Instructions: Urinary Tract Infection in Women (ED), Opioid Safety Coding Level of Care Code ED Clamp Jig Assembler for Jd Fwd Exam Comprehensive
[2020-09-18 19:16] LABS: Alanine Aminotransferase 28 U/L (0-33); Alkaline Phosphatase 126 IU/L (35-105); Anion Gap 15.8 (5-19); Aspartate Amino Transferase 15 U/L (0-32); Blood Urea Nitrogen 13 mg/dL (6-20); Calcium 9.1 mg/dL (8.5-10.5); Carbon Dioxide 24 mmol/L (22-29); Chloride 97 mmol/L (98-107); Globulin 2.7 g/dL (1.3-4.6); Glomerular Filtration Rate 52.4 mL/min (90-130); Glucose 326 mg/dL (65-115); Lipase 15 U/L (13-60); Osmolality Calculated 289 mOsm/kg (285-295); Potassium 3.8 mmol/L (3.5-5.1); Sodium 133 mmol/L (136-145); Total Bilirubin 0.9 mg/dL (0.15-1.2); Total Protein 6.7 g/dL (6.6-8.7)
[2020-09-18 19:21] LABS: Urine Appearance Cloudy (CLEAR); Urine Color Yellow (Yellow); pH Urine 5 (5-7)
[2020-09-18 19:22] LABS: Add Urine Culture? Yes; Add Urine Microscopic? YES; Bilirubin Urine Neg (Negative); Blood Urine 3+ (Negative); Glucose Urine UA 4+ (Normal); Ketones Urine 1+ (Negative); Leukocyte Esterase Urine 2+ (Negative); Nitrate Urine Positive (Negative); Protein Urine 1+ (Negative); Squamous Epithelial Cell Urine 0-4 /hpf (0-5); Transitional Epi Cells Urine 0-4 /hpf; Urobilinogen Urine Norm (Negative); WBC Urine 25-40 /hpf (0-5)
[2020-09-18] MEDS: iohexol 300 mg/mL 100 mL Btl IV (19:26)
--- NOTE | 2020-09-18 19:57 | ECG_ITS ---
[facility] Test Date: 2020-09-18 Pat Name: Vanesa Ignacio Department: Room: Gender: Female Licensed Appraiser: : 1970 Requested By: Lennox Anthony Order Number: [id number] Mi MD: Harlan Pablo M.D. Measurements Intervals Lewis Rate: 100 P: 67 IL: 142 QRS: 78 QRSD: 101 T: 48 QT: 303 QTc: 391 Interpretive Statements SINUS TACHYCARDIA LOW QRS VOLTAGE IN PRECORDIAL LEADS [QRS DEFLECTION < 1.0 mV IN CHEST LEADS] NONSPECIFIC T-WAVE ABNORMALITY ABNORMAL RHYTHM ECG No previous ECG available for comparison Electronically Signed On 09-20-2020 19:13:26 DAIRY CLERK by Harlan Pablo M.D. [id number]
[2020-09-18] MEDS: ciprofloxacin 500 mg Tablet PO (20:08)
[2020-09-18] MEDS: morphine 4 mg/mL SDV 1 mL IVP (20:09)
== END 2020-09-18 20:52 | disposition home or self-care (01) ==
PROVIDERS: Emergency Provider Emergency Medicine
DX: N30.90 Cystitis, unspecified without hematuria (principal); N18.9 Chronic kidney disease, unspecified; J44.9 Chronic obstructive pulmonary disease, unspecified; E11.9 Type 2 diabetes mellitus without complications; I10 Essential (primary) hypertension; Z79.4 Long term (current) use of insulin
CPT/HCPCS: 74177; 80053; 81001; 83690; 85025; 87077; 87086; 87186; 93005; 96361; 96374; 96375; 99284; J1170; J2270; J2405; J7030; Q9967

== ENCOUNTER 2020-10-26 15:28 | Emergency (ER) | payer MEDICAID, SELFPAY ==
[2020-10-26 15:57] VITALS: BP 160/99; PULSE 85; RESP 14; TEMP 36.2; O2SAT 97; BMI 47.0
--- NOTE | 2020-10-26 16:25 | ED_ITS ---
HPI - Wound/Laceration General: Chief Complaint: Wound/Laceration Stated Complaint: FISH HOOK IN LLE Time Seen by Provider: 10/26/20 16:09 Source: patient Mode of arrival: ambulatory Limitations: no limitations History of Present Illness: HPI narrative: Patient is a 50-year-old female who presents to ED today with a complaint of fishhook to her left lower extremity that she sustained a few hours ago. Tetanus is not up-to-date. Onset (ago): hour(s) Extremity Location: Left: lower leg Place: outdoors Patient tetanus UTD: No Context: accidental Associated symptoms: Reports no associated symptoms Review of Systems Musc: Reports: extremity pain and other (fb to left leg) Neuro: Denies: numbness in extremities, weakness in extremities or sensory changes PFSH ED PFSH: Medical History Asthma CKD (chronic kidney disease) COPD (chronic obstructive pulmonary disease) Depression DM type 2 (diabetes mellitus, type 2) Hypertension Migraines Neuropathy TIA (transient ischemic attack) Physical Exam Const: COMMON NORMALS: no acute distress Extremity: OTHER: fishhook embedded in soft tissue of anterior left lower leg Procedures Foreign Body Removal Time Out Performed: no Site: left and lower extremity Description of foreign body: fish hook Sedation/Analgesia: none Technique: removal with forceps Confirmed by:: direct visualization Complications: none Post-procedure exam: awake, alert Neurovascular: normal distal pulse, distal light touch sensation intact, distal motor function normal and no signs of compartment syndrome Course Vital Signs: Vital signs: Vital Signs Temperature 97.1 F L 10/26/20 15:57 Pulse Rate 85 10/26/20 15:57 Respiratory Rate 14 10/26/20 15:57 Blood Pressure 160/99 10/26/20 15:57 Pulse Oximetry 97 10/26/20 15:57 MDM - Wound/Laceration MDM Narrative: Medical decision making narrative: fishhook removed w/o difficulty; tetanus updated Discharge Plan Discharge Patient Disposition: Home Clinical Impression: Acute foreign body of left lower leg Qualifiers: Encounter type: initial encounter Qualified Code(s): S80.852A - Superficial foreign body, left lower leg, initial encounter Condition: Stable Prescriptions: No Action Anderson 5-325 mg tablet 1 tab PO Q6H PRN (Reason: pain) Qty: 14 RF: 0 ondansetron 4 mg tablet,disintegrating 4 mg PO Q6H PRN (Reason: nausea and vomiting) Qty: 14 RF: 0 ciprofloxacin HCl 500 mg tablet 500 mg PO Q8H Qty: 21 RF: 0 prazosin 2 mg Capsule 4 mg PO QPM RF: 0 Rexulti 2 mg Tablet 2 mg PO DAILY RF: 0 cetirizine 10 mg Tablet 10 mg PO DAILY RF: 0 metoprolol tartrate 100 mg Tablet 100 mg PO BID RF: 0 clopidogrel 75 mg Tablet 75 mg PO DAILY RF: 0 lisinopril 10 mg Tablet 10 mg PO DAILY RF: 0 gabapentin 300 mg Capsule 300 mg PO TID RF: 0 hydroxyzine pamoate 25 mg Capsule 25 mg PO PRN PRN (Reason: Hypertension) RF: 0 eszopiclone 3 mg Tablet 3 mg PO BEDTIME RF: 0 topiramate 50 mg Capsule,Sprinkle,Er 24hr 50 mg PO DAILY RF: 0 duloxetine 60 mg Capsule, Delayed Rel Sprinkle 60 mg PO BID RF: 0 Cipro 500 mg tablet 500 mg PO BID Qty: 20 RF: 0 Humalog Pen 100 unit/mL Insulin Pen 20 unit SUBCUT TID RF: 0 Lantus U-100 Insulin 100 unit/mL Cartridge 50 unit SUBCUT QPM RF: 0 Victoza 3-Benedict 0.6 mg/0.1 mL (18 mg/3 mL) Pen Injector 1.2 mg SUBCUT DAILY RF: 0 Discharge Orders: Discharge ED (Routine); Ordered 10/26/20 Ordered By: Giulia Hayden Referrals: Bubba Hernandez [Primary Care Provider] - Activity Restrictions/Additional Instructions: Monitor for signs of infection such as redness, swelling, increased pain, or drainage. Please seek medical re-evaluation if these occur. Coding Level of Care Code ED Ceramic Mold Designer for Jd Bellamy
[2020-10-26] MEDS: tetanus-diphtheria tox (adult) 0.5 mL SDV IM (16:41)
[2020-10-26 16:47] VITALS: BP 159/90; PULSE 87; RESP 14; O2SAT 96
== END 2020-10-26 16:48 | disposition home or self-care (01) ==
PROVIDERS: Emergency Provider Physician Assistant
DX: S80.852A Superficial foreign body, left lower leg, initial encounter (principal); Z79.02 Long term (current) use of antithrombotics/antiplatelets; Z79.4 Long term (current) use of insulin; W26.8XXA Contact with other sharp object(s), not elsewhere classified, initial encounter; Z23 Encounter for immunization
CPT/HCPCS: 90471; 90714; 99282

== ENCOUNTER → 2020-11-11 14:33 | Outpatient (BNVA) | payer MEDICAID, SELFPAY | PROVIDERS: Visit Provider Psychiatry & Neurology Psychiatry | DX: F41.1 Generalized anxiety disorder (principal); F33.3 Major depressive disorder, recurrent, severe with psychotic symptoms | CPT/HCPCS: 99204 ==

== ENCOUNTER → 2020-11-12 14:25 | Outpatient (BNVA) | payer MEDICAID, SELFPAY | PROVIDERS: Visit Provider Internal Medicine | DX: E11.22 Type 2 diabetes mellitus with diabetic chronic kidney disease (principal); N18.30 Chronic kidney disease, stage 3 unspecified; E11.40 Type 2 diabetes mellitus with diabetic neuropathy, unspecified; Z79.4 Long term (current) use of insulin; G45.9 Transient cerebral ischemic attack, unspecified | CPT/HCPCS: 99204 ==

== ENCOUNTER → 2020-11-26 14:20 | Outpatient (BNVA) | payer MEDICAID, SELFPAY | PROVIDERS: Visit Provider Obstetrics & Gynecology | DX: Z12.4 Encounter for screening for malignant neoplasm of cervix (principal); N84.1 Polyp of cervix uteri; B37.3 Candidiasis of vulva and vagina | CPT/HCPCS: 88175; 88305 ==

== ENCOUNTER 2020-12-03 00:02 | Emergency (ER) | payer MEDICAID, SELFPAY ==
[2020-12-03 00:10] VITALS: BP 174/111; PULSE 113; RESP 12; TEMP 36.8; O2SAT 96; BMI 47.0
--- NOTE | 2020-12-03 00:14 | ECG_ITS ---
[facility] Test Date: 2020-12-03 Pat Name: Vanesa Ignacio Department: Room: Gender: Female Cotton Puller: : 1970 Requested By: Lennox Anthony Order Number: [id number] Mi MD: Noah Taylor M.D. Measurements Intervals [place] Rate: 106 P: 59 MA: 133 QRS: 35 QRSD: 83 T: 11 QT: 337 QTc: 448 Interpretive Statements SINUS TACHYCARDIA LOW QRS VOLTAGE IN PRECORDIAL LEADS [QRS DEFLECTION < 1.0 mV IN CHEST LEADS] NONSPECIFIC T-WAVE ABNORMALITY ABNORMAL RHYTHM ECG Compared to ECG 09/18/2020 20:04:31 No significant changes Electronically Signed On 12-03-2020 18:28:18 CDT by Noah Taylor M.D. [id number]
--- NOTE | 2020-12-03 00:25 | W.ED.GENADLT ---
HPI - General Adult General: Chief complaint: General Medical Stated complaint: n/low blood sugar Time Seen by Provider: 12/03/20 00:11 Source: patient Mode of arrival: ambulatory Limitations: no limitations History of Present Illness: HPI narrative: 50-year-old female history diabetes states that she has been feeling nauseous just not feeling real well. She took her blood sugar and it was 70 states that it is quite low for her. She denies taking too much of her insulin. She states she has had some palpitations as well and her heart rate is 105. She denies any chest pain or abdominal pain. States she has had some slight lightheadedness. Has had no vomiting or diarrhea. Associated symptoms: Reports nausea and palpitations; Deny dyspnea, headache(s) or rash Review of Systems Const: Denies: fever(s), chills, body aches or change in appetite Eyes: Denies: blurry vision or eye discomfort ENMT: Denies: throat pain or dental pain Card: Reports: palpitations Resp: Denies: dyspnea GI: Reports: nausea : Denies: dysuria Musc: Denies: neck pain or back pain Skin/Breast: Denies: rash Neuro: Denies: headache(s) Psych: Denies: depression Morgan/Lymph: Denies: easy bruising All/Imm: Denies: urticaria PFSH ED PFSH: Medical History Asthma CKD (chronic kidney disease) COPD (chronic obstructive pulmonary disease) Depression DM type 2 (diabetes mellitus, type 2) Hypertension Migraines Neuropathy TIA (transient ischemic attack) Surgical History History of cholecystectomy History of tubal ligation Family History Mother Cancer Stage 4 kidney cancer Chronic kidney disease (CKD) Diabetes Hypertension Grandmother Cancer Maternal-Lung cancer Family/Other Cancer Maternal Aunt--Unknown Father Chronic kidney disease (CKD) Diabetes Hyperlipidemia Hypertension Daughter Diabetes Grandfather Stroke Maternal Denies family history of Ovarian cyst Anesthesia complication Bleeding disorder Thyroid disease Social History Smoking and tobacco status: former smoker Quit status (tobacco): has quit using tobacco Year quit tobacco: 2008 Second hand smoke exposure: Yes Alcohol intake: current Alcohol intake frequency: holidays/special occasions only Physical Exam Const: COMMON NORMALS: no acute distress, patient oriented x3 and healthy appearing HENMT: COMMON NORMALS: normocephalic and atraumatic HEAD & SCALP: normocephalic and atraumatic Eye: COMMON NORMALS: Equal, round and reactive pupils present and EOMs intact bilaterally PUPIL: Yes Equal, round and reactive pupils present Neck/C-Spine: COMMON NORMALS: full ROM and supple Chest: COMMONS NORMALS: normal inspection of the chest and normal palpation of entire chest wall Resp: COMMON NORMALS: normal respiratory effort, No retractions, No use of accessory muscles and clear to auscultation bilaterally AUSCULTATION: clear to auscultation bilaterally Cardio: COMMON NORMALS: regular rhythm and No murmurs present (Cardio) RATE: tachycardic RHYTHM: regular rhythm GI: COMMON NORMALS: Normal to inspection, nondistended, normoactive bowel sounds present, Soft to palpation, non-tender and no masses PALPATION: Yes Soft to palpation Extremity: COMMON NORMALS: normal to inspection and full ROM Neuro: COMMON NORMALS: patient oriented x3, moves all extremities and no focal motor deficits Psych: COMMON NORMALS: mental status grossly normal, Normal thought process present and cooperative THOUGHT PROCESS: Normal thought process present Skin: COMMON NORMALS: no rashes or lesions noted and no wounds GENERAL SKIN EXAM: no rashes or lesions noted Course Vital Signs: Vital signs: Vital Signs Temperature 98.3 F 12/03/20 00:10 Pulse Rate 102 H 12/03/20 00:27 Respiratory Rate 23 H 12/03/20 00:27 Blood Pressure 128/81 12/03/20 00:27 Pulse Oximetry 95 12/03/20 00:27 MDM - General Adult MDM Narrative: Medical decision making narrative: Patient presents with nausea and she is feels much improved here after Zofran. Her glucose here has been normal. Does have slight hypokalemia and will treat with potassium at home. She is stable for discharge will place her on Zofran as well. She is return if worsening. Lab Data: Labs: Lab Results 12/03/20 12/03/20 12/03/20 Range/Units 00:18 00:24 00:24 WBC 7.7 (4.0-10.0) 10^3/ uL RBC 4.84 (4.1-5.3) 10^6/u L Hgb 14.0 (11.5-15.3) g/dL Hct 42.9 (37.0-47.0) % MCV 88.6 (81-99) fL MCH 28.9 (28.0-34.0) pg MCHC 32.6 (30.0-36.0) g/dL RDW 13.1 (12.1-15.1) % Plt Count 209 (130-400) 10^3/c mm MPV 9.8 (7.4-10.4) fL Neut % (Auto) 55.2 % Lymph % (Auto) 29.0 % [place] % (Auto) 8.3 % Eos % (Auto) 6.3 % Baso % (Auto) 0.8 % Neut # (Auto) 4.26 (1.8-7.7) 10^3/u L Lymph # (Auto) 2.2 (0.8-4.8) 10^3/u L [place] # (Auto) 0.6 (0.2-0.9) 10^3/u L Eos # (Auto) 0.5 (0.0-0.8) 10^3/u L Baso # (Auto) 0.1 (0.0-0.1) 10^3/u L Nucleated RBC % (a uto) 0 % Nucleated RBCs # 0.0 /100WBC Sodium 140 (136-145) mmol/L Potassium 3.2 L (3.5-5.1) mmol/L Chloride 104 (98-107) mmol/L Carbon Dioxide 25 (22-29) mmol/L Anion Gap 14.2 (5-19) BUN 11 (6-20) mg/dL Creatinine 1.1 H (0.5-0.9) mg/dL GFR Calculation 52.4 L (90-130) mL/min Glucose 130 H (65-115) mg/dL POC Glucose 124 H (70-110) mg/dL Calculated Osmolal ity 291 (285-295) mOsm/k g Calcium 9.0 (8.5-10.5) mg/dL Total Bilirubin 0.3 (0.15-1.2) mg/dL AST 15 (0-32) U/L ALT 14 (0-33) U/L Alkaline Phosphata se 77 (35-105) IU/L Total Protein 6.2 L (6.6-8.7) g/dL Albumin 4.2 (3.5-5.2) g/dL Globulin 2.0 (1.3-4.6) g/dL EKG Data^: EKG 1: Attestation: I personally reviewed and interpreted this EKG as follows: EKG interpretation date: 12/03/20 EKG interpretation time: 00:21 Interpretation: sinus tach hr [address] or t wave abnormalities qrs 83 qtc 399 Discharge Plan Discharge Patient Disposition: Home Clinical Impression: Hypokalemia, Nausea Condition: Stable Prescriptions: New ondansetron 4 mg tablet,disintegrating 4 mg PO Q6H PRN (Reason: nausea and vomiting) Qty: 14 RF: 0 potassium chloride 20 mEq packet 40 meq PO TID Qty: 30 RF: 0 No Action Lantus Solostar U-100 Insulin 100 unit/mL (3 mL) insulin pen 55 unit SUBCUT DAILY Qty: 50 RF: 3 Aimovig Autoinjector 70 mg/mL auto-injector 75 mg SUBCUT .monthly RF: 0 temazepam [Restoril] 15 mg capsule 15 mg PO .h.s. PRNRF: 0 albuterol sulfate 90 mcg/actuation HFA aerosol inhaler 1 puff inhalation Q4H PRNRF: 0 duloxetine 60 mg capsule,delayed release(DR/EC) 120 mg PO .h.s. RF: 0 fluconazole [Diflucan] 200 mg tablet 200 mg PO DAILY Qty: 5 RF: 0 Farxiga 10 mg tablet 10 mg PO DAILY RF: 0 ibuprofen 200 mg tablet 800 mg PO DAILY PRNRF: 0 pantoprazole [Protonix] 40 mg tablet,delayed release (DR/EC) 40 mg PO DAILY RF: 0 promethazine 12.5 mg tablet 12.5 mg PO Q6H PRNRF: 0 prazosin 5 mg capsule 10 mg PO .HS Qty: 60 RF: 1 Rexulti 2 mg tablet 2 mg PO DAILY Qty: 30 RF: 1 hydroxyzine pamoate 25 mg capsule 25 mg PO TID PRN (Reason: anxiety) Qty: 90 RF: 1 valacyclovir 1 gram tablet 1,000 mg PO DAILY Qty: 30 RF: 6 ondansetron 4 mg tablet,disintegrating 4 mg PO Q6H PRN (Reason: nausea and vomiting) Qty: 14 RF: 0 cetirizine 10 mg Tablet 10 mg PO DAILY RF: 0 clopidogrel 75 mg Tablet 75 mg PO DAILY RF: 0 lisinopril 10 mg tablet 40 mg PO DAILY RF: 0 gabapentin 300 mg capsule 300 mg PO TID RF: 0 topiramate 50 mg cap,sprinkle,ER 24hr dose pack 50 mg PO DAILY RF: 0 Victoza 3-Benedict 0.6 mg/0.1 mL (18 mg/3 mL) pen injector 1.8 mg SUBCUT DAILY RF: 0 insulin lispro 100 unit/mL insulin pen 25 unit SUBCUT TID RF: 0 metoprolol tartrate 100 mg tablet 100 mg PO DAILY RF: 0 Discharge Orders: Discharge ED (Routine); Ordered 12/03/20 Ordered By: Lennox Anthony Referrals: Bubba Hernandez [Primary Care Provider] - 1-3 days Discharge Diet: Advance as tolerated Discharge Activity: Resume usual activity Patient Instructions: Acute Nausea and Vomiting (ED) Coding Level of Care Code ED Youth Development Professional for Chg Fwd Exam Comprehensive
[2020-12-03] MEDS: ondansetron 2 mg/ML SDV 2 mL 4 MG IVP (00:26)
[2020-12-03 00:27] VITALS: BP 128/81; PULSE 102; RESP 23; O2SAT 95
[2020-12-03] MEDS: sodium chloride 0.9% 1,000 ML 999 ML IV (00:27)
[2020-12-03 00:32] LABS: Glucose Point of Care 124 mg/dL (70-110)
[2020-12-03 00:35] LABS: Basophils # 0.1 10^3/uL (0.0-0.1); Basophils % 0.8 %; Eosinophils # 0.5 10^3/uL (0.0-0.8); Eosinophils % 6.3 %; Hematocrit 42.9 % (37.0-47.0); Lymphocytes # 2.2 10^3/uL (0.8-4.8); Mean Corpuscular HGB Conc 32.6 g/dL (30.0-36.0); Mean Corpuscular Hemoglobin 28.9 pg (28.0-34.0); Mean Corpuscular Volume 88.6 fL (81-99); Mean Platelet Volume 9.8 fL (7.4-10.4); Monocytes # 0.6 10^3/uL (0.2-0.9); Monocytes % 8.3 %; Neutrophils # 4.26 10^3/uL (1.8-7.7); Neutrophils % 55.2 %; Nucleated Red Blood Cells % 0 %; Platelet Count 209 10^3/cmm (130-400); Red Blood Count 4.84 10^6/uL (4.1-5.3); Red Cell Distribution Width 13.1 % (12.1-15.1); White Blood Count 7.7 10^3/uL (4.0-10.0)
[2020-12-03 00:49] LABS: Alanine Aminotransferase 14 U/L (0-33); Albumin Level 4.2 g/dL (3.5-5.2); Alkaline Phosphatase 77 IU/L (35-105); Anion Gap 14.2 (5-19); Aspartate Amino Transferase 15 U/L (0-32); Blood Urea Nitrogen 11 mg/dL (6-20); Carbon Dioxide 25 mmol/L (22-29); Chloride 104 mmol/L (98-107); Glomerular Filtration Rate 52.4 mL/min (90-130); Glucose 130 mg/dL (65-115); Osmolality Calculated 291 mOsm/kg (285-295); Potassium 3.2 mmol/L (3.5-5.1); Sodium 140 mmol/L (136-145); Total Bilirubin 0.3 mg/dL (0.15-1.2); Total Protein 6.2 g/dL (6.6-8.7)
[2020-12-03] MEDS: potassium chloride ER 20 mEq Tablet 40 MEQ PO (01:25)
[2020-12-03 01:50] VITALS: BP 111/78; PULSE 88; RESP 16; O2SAT 96
== END 2020-12-03 01:51 | disposition home or self-care (01) ==
PROVIDERS: Emergency Provider Emergency Medicine
DX: E87.6 Hypokalemia (principal); R11.0 Nausea; Z79.02 Long term (current) use of antithrombotics/antiplatelets; Z79.4 Long term (current) use of insulin; J44.9 Chronic obstructive pulmonary disease, unspecified; I10 Essential (primary) hypertension; E11.40 Type 2 diabetes mellitus with diabetic neuropathy, unspecified; Z86.73 Personal history of transient ischemic attack (TIA), and cerebral infarction without residual deficits; Z87.891 Personal history of nicotine dependence
CPT/HCPCS: 36416; 80053; 82962; 85025; 93005; 96361; 96374; 99283; J2405; J7030

== ENCOUNTER 2020-12-08 14:25 | Outpatient (CLI) | payer MEDICAID, SELFPAY ==
--- NOTE | 2020-12-08 14:28 | MM_ITS ---
WS: [id number] BILATERAL DIGITAL SCREENING MAMMOGRAPHY WITH CAD CLINICAL INFORMATION: SCREENING HISTORY: Screening mammogram. No current complaints. COMPARISON: None. TECHNIQUE: Bilateral CC and MLO views. FINDINGS: Scattered fibroglandular densities bilaterally. Dystrophic benign calcification left breast. No suspi cious focal mass, asymmetry, calcifications, or architectural distortion. No evidence of malignancy. MM/[place] [id number] IMPRESSION: BI-RADS: 2-Benign FOLLOW UP: 1 Year Follow-up Recommend return to annual screening mammography.
--- NOTE | 2020-12-08 15:20 | USCV_ITS ---
Vanesa Ignacio Age: 50 Gender: F : 1970 Exam Date: 12/08/2020 15:51 Ordering Phys: Bubba Hernandez Technologist: Henrique Carlton Exam Location: [facility] Indication: RT SIDE HEART FAILURE BP: 138 / 88 HR: 92 Rhythm: Sinus Technical Quality: Poor because of body habitus MEASUREMENTS (Male / Female) Normal Values 2D ECHO LV Diastolic Diameter PLAX 5.0 cm 4.2 - 5.9 / 3.9 - 5.3 cm LV Systolic Diameter PLAX 3.4 cm IVS Diastolic Thickness 0.8 cm 0.6 - 1.0 / 0.6 - 0.9 cm IVS Systolic Thickness 1.4 cm LVPW Diastolic Thickness 0.8 cm 0.6 - 1.0 / 0.6 - 0.9 cm LVPW Systolic Thickness 1.4 cm LVOT Diameter 2.1 cm LV Ejection Fraction 2D Teich 60.8 % LV Ejection Fraction MOD 2C 61.5 % LV Ejection Fraction 2C AL 61.7 % LA Diameter 3.5 cm LA Width 2.4 cm LA Height 5.0 cm RA Width 2.9 cm RA Height 3.8 cm M-MODE LV Diastolic Diameter MM 4.1 cm 4.2 - 5.9 / 3.9 - 5.3 cm LV Systolic Diameter MM 2.7 cm LV Ejection Fraction MM Teich 64.8 % IVS Diastolic Thickness MM 1.3 cm 0.6 - 1.0 / 0.6 - 0.9 cm IVS Systolic Thickness MM 2.0 cm LVPW Diastolic Thickness MM 1.1 cm 0.6 - 1.0 / 0.6 - 0.9 cm LVPW Systolic Thickness MM 1.8 cm RV Diastolic Diameter MM 1.4 cm Aortic Annulus Diameter 3.1 cm LA Ao Ratio MM 1.2 MV E Point Septal Separation 1.0 cm DOPPLER AV Peak Velocity 155.3 cm/s LVOT Peak Velocity 107.0 cm/s AV Area Cont Eq vti 2.9 cm squared AV Area Cont Eq pk 2.3 cm squared MV Area PHT 5.0 cm squared Mitral E to A Ratio 1.1 MV E' Velocity 39.5 cm/s Mitral E to MV E' Ratio 2.4 Mitral E to LV E' Lateral Ratio 6.7 Mitral E to LV E' Septal Ratio 1.5 TR Peak Velocity 168.7 cm/s TR Peak Gradient 11.4 mmHg TV Peak E Velocity 85.0 cm/s Right Atrial Pressure 3.0 mmHg Pulmonary Artery Systolic Pressu 14.4 mmHg PV Peak Velocity 78.0 cm/s FINDINGS Left Ventricle Normal left ventricular size. LV systolic function is grossly normal. Regional wall mtotion abnormalities can not be ruled out because of poor visualization. Normal diastolic filling pattern. Right Ventricle The right ventricle is grossly normal in size and function. Right Atrium Not well visualized Left Atrium Not well visualized Mitral Valve Grossly normal without significant stenosis or prolapse. There is no mitral regurgitation. Aortic Valve Not well visualized. No significant stenosis. There is no aortic regurgitation. Tricuspid Valve Not well visualized without significant stenosis or regurgitation. Insufficient TR jet to calculate RVSP Pulmonic Valve Not well visualized Pericardium Normal pericardium without effusion. Aorta Normal ascending aorta dimension. CONCLUSIONS This is limited quality echocardiogram because of poor ultrasonic windows. Grossly LV systolic function is normal. Regional wall motion abnormalities cannot be ruled out because of poor visualization. Normal diastolic function. RV is grossly normal in size and function. No gross valvular abnormalities however valvular structures are not well-visualized. No comparison studies are available. Noah Taylor MD (Electronically Signed) Final Date: 20 Dec 2020 11:49 S
== END 2020-12-08 14:26 | disposition home or self-care (01) ==
LOC: RADSHAW 14:26
DX: Z12.31 Encounter for screening mammogram for malignant neoplasm of breast (principal); I50.32 Chronic diastolic (congestive) heart failure
CPT/HCPCS: 77067; 93306

== ENCOUNTER → 2020-12-09 08:12 | Outpatient (BNVA) | payer MEDICAID, SELFPAY | PROVIDERS: Visit Provider Obstetrics & Gynecology | DX: R87.612 Low grade squamous intraepithelial lesion on cytologic smear of cervix (LGSIL) (principal) | CPT/HCPCS: 81025; 88305 ==

== ENCOUNTER 2021-01-29 23:56 | Emergency (ER) | payer MEDICAID, SELFPAY ==
[2021-01-30] VITALS: BP 117/76; PULSE 67; RESP 18; TEMP 36.7; O2SAT 96; BMI 54.8
--- NOTE | 2021-01-30 | XRR_ITS ---
PROCEDURE INFORMATION: Exam: XR Chest Exam date and time: 01/30/2021 12:00 AM Age: 50 years old Clinical indication: Chest pressure; Patient HX: Chest pain; Additional info: Cp TECHNIQUE: Imaging protocol: XR of the chest. Views: 1 view. COMPARISON: CR XR chest 1V portable [id number] 08/11/2020 7:40 PM FINDINGS: Lungs: Unremarkable. No consolidation. Pleural spaces: Unremarkable. No pleural effusion. No pneumothorax. Heart/Mediastinum: Unremarkable. No cardiomegaly. Bones/joints: Unremarkable. XR/XR chest 1V portable [id number] IMPRESSION: No acute findings. Stable appearance of the chest compared with 08/11/2020.
--- NOTE | 2021-01-30 | ECG_ITS ---
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 Measurements Intervals [place] Rate: 64 P: 58 [place]: 145 QRS: 44 QRSD: 92 T: 32 QT: 381 QTc: 394 Interpretive Statements SINUS RHYTHM LOW QRS VOLTAGE IN PRECORDIAL LEADS [QRS DEFLECTION < 1.0 mV IN CHEST LEADS] Compared to ECG 12/03/2020 00:21:20 Sinus tachycardia no longer present T-wave abnormality no longer present Electronically Signed On 01-30-2021 14:14:38 CDT by Rose Chan M.D. [id number]
[2021-01-30 00:09] LABS: Basophils # 0.1 10^3/uL (0.0-0.1); Basophils % 1.1 %; Eosinophils # 0.5 10^3/uL (0.0-0.8); Eosinophils % 5.4 %; Hematocrit 47.1 % (37.0-47.0); Hemoglobin 15.8 g/dL (11.5-15.3); Lymphocytes # 2.7 10^3/uL (0.8-4.8); Lymphocytes % 31.1 %; Mean Corpuscular HGB Conc 33.5 g/dL (30.0-36.0); Mean Corpuscular Hemoglobin 29.7 pg (28.0-34.0); Mean Corpuscular Volume 88.5 fL (81-99); Mean Platelet Volume 10.3 fL (7.4-10.4); Monocytes # 0.7 10^3/uL (0.2-0.9); Monocytes % 7.6 %; Neutrophils # 4.77 10^3/uL (1.8-7.7); Neutrophils % 54.3 %; Nucleated Red Blood Cells % 0 %; Platelet Count 223 10^3/cmm (130-400); Red Blood Count 5.32 10^6/uL (4.1-5.3); Red Cell Distribution Width 12.7 % (12.1-15.1); White Blood Count 8.8 10^3/uL (4.0-10.0)
--- NOTE | 2021-01-30 00:22 | ED_ITS ---
HPI - Chest Pain General: Chief Complaint: Chest Pain Stated Complaint: CP Time Seen by Provider: 01/29/21 23:58 Source: patient and EMS Mode of arrival: EMS Limitations: no limitations History of Present Illness: HPI narrative: 50-year-old female states she woke up 11:00 with chest pain in the left side of her chest. States that since resolved with nitro by EMS. She denies any shortness of breath or vomiting. She had a stress test little over a year ago was negative. She denies any fever. Denies any radiation of her pain. Associated symptoms: Deny abdominal pain, dyspnea, fever(s), nausea or vomiting Review of Systems Const: Denies: fever(s), chills, body aches or change in appetite Eyes: Denies: blurry vision or eye discomfort ENMT: Denies: throat pain or dental pain Card: Reports: chest pain Resp: Denies: dyspnea GI: Denies: abdominal pain, nausea, vomiting or diarrhea : Denies: dysuria Musc: Denies: neck pain or back pain Skin/Breast: Denies: rash Neuro: Denies: headache(s) Psych: Denies: depression Morgan/Lymph: Denies: easy bruising All/Imm: Denies: urticaria PFSH ED PFSH: Medical History Asthma CKD (chronic kidney disease) COPD (chronic obstructive pulmonary disease) Depression DM type 2 (diabetes mellitus, type 2) Hypertension Migraines Neuropathy TIA (transient ischemic attack) Surgical History History of cholecystectomy History of tubal ligation Family History Mother Cancer Stage 4 kidney cancer Chronic kidney disease (CKD) Diabetes Hypertension Grandmother Cancer Maternal-Lung cancer Family/Other Cancer Maternal Aunt--Unknown Father Chronic kidney disease (CKD) Diabetes Hyperlipidemia Hypertension Daughter Diabetes Grandfather Stroke Maternal Denies family history of Ovarian cyst Anesthesia complication Bleeding disorder Thyroid disease Social History Smoking and tobacco status: former smoker Quit status (tobacco): has quit using tobacco Year quit tobacco: 2008 Second hand smoke exposure: Yes Alcohol intake: never Physical Exam Const: COMMON NORMALS: no acute distress, patient oriented x3 and healthy appearing HENMT: COMMON NORMALS: normocephalic and atraumatic HEAD & SCALP: normocephalic and atraumatic Eye: COMMON NORMALS: Equal, round and reactive pupils present and EOMs intact bilaterally PUPIL: Yes Equal, round and reactive pupils present Neck/C-Spine: COMMON NORMALS: full ROM and supple Chest: COMMONS NORMALS: normal inspection of the chest and normal palpation of entire chest wall Resp: COMMON NORMALS: normal respiratory effort, No retractions, No use of accessory muscles and clear to auscultation bilaterally AUSCULTATION: clear to auscultation bilaterally Cardio: COMMON NORMALS: regular rate, regular rhythm and No murmurs present (Cardio) RATE: regular rate RHYTHM: regular rhythm GI: COMMON NORMALS: Normal to inspection, nondistended, normoactive bowel sounds present, Soft to palpation, non-tender and no masses PALPATION: Yes Soft to palpation Extremity: COMMON NORMALS: normal to inspection and full ROM Neuro: COMMON NORMALS: patient oriented x3, moves all extremities and no focal motor deficits Psych: COMMON NORMALS: mental status grossly normal, Normal thought process present and cooperative THOUGHT PROCESS: Normal thought process present Skin: COMMON NORMALS: no rashes or lesions noted and no wounds GENERAL SKIN EXAM: no rashes or lesions noted Course Vital Signs: Vital signs: Vital Signs Temperature 98.1 F 01/30/21 00:00 Pulse Rate 86 01/30/21 02:16 Respiratory Rate 19 H 01/30/21 02:16 Blood Pressure 117/76 01/30/21 02:16 Pulse Oximetry 96 01/30/21 02:16 MDM - Chest Pain MDM Narrative: Medical decision making narrative: Patient presents here with chest pain that is resolved. Her initial and repeat troponins here are negative. EKG is negative. She has no signs of acute coronary syndrome. She has no signs of aortic dissection or pulmonary embolism. She is stable for discharge and is to follow-up with her PCP in 2 to 4 days return to ER if worsening. She understands and agrees to plan. Lab Data: Labs: Lab Results 01/29/21 01/29/21 01/29/21 Range/Units 23:42 23:42 23:42 WBC 8.8 (4.0-10.0) 10^3/ uL RBC 5.32 H (4.1-5.3) 10^6/u L Hgb 15.8 H (11.5-15.3) g/dL Hct 47.1 H (37.0-47.0) % MCV 88.5 (81-99) fL MCH 29.7 (28.0-34.0) pg MCHC 33.5 (30.0-36.0) g/dL RDW 12.7 (12.1-15.1) % Plt Count 223 (130-400) 10^3/c mm MPV 10.3 (7.4-10.4) fL Neut % (Auto) 54.3 % Lymph % (Auto) 31.1 % [place] % (Auto) 7.6 % Eos % (Auto) 5.4 % Baso % (Auto) 1.1 % Neut # (Auto) 4.77 (1.8-7.7) 10^3/u L Lymph # (Auto) 2.7 (0.8-4.8) 10^3/u L [place] # (Auto) 0.7 (0.2-0.9) 10^3/u L Eos # (Auto) 0.5 (0.0-0.8) 10^3/u L Baso # (Auto) 0.1 (0.0-0.1) 10^3/u L Nucleated RBC % (a uto) 0 % Nucleated RBCs # 0.0 /100WBC Sodium 133 L (136-145) mmol/L Potassium 4.3 (3.5-5.1) mmol/L Chloride 95 L (98-107) mmol/L Carbon Dioxide 24 (22-29) mmol/L Anion Gap 18.3 (5-19) BUN 15 (6-20) mg/dL Creatinine 1.0 H (0.5-0.9) mg/dL GFR Calculation 58.5 L (90-130) mL/min Glucose 440 H (65-115) mg/dL POC Glucose (70-110) mg/dL Calculated Osmolal ity 296 H (285-295) mOsm/k g Calcium 9.9 (8.5-10.5) mg/dL Total Bilirubin 0.5 (0.15-1.2) mg/dL AST 16 (0-32) U/L ALT 23 (0-33) U/L Alkaline Phosphata se 99 (35-105) IU/L Troponin T Baselin e 6 (0-10) ng/L Troponin T 120 Min council (0-10) ng/L Delta Troponin T (0-10) ABS# Total Protein 6.2 L (6.6-8.7) g/dL Albumin 4.5 (3.5-5.2) g/dL Globulin 1.7 (1.3-4.6) g/dL Urine Color (Yellow) Urine Appearance (CLEAR) Urine pH (5-7) Ur Specific Gravit y (1.005-1.030) Urine Protein (Negative) Urine Glucose (UA) (Normal) Urine Ketones (Negative) Urine Blood (Negative) Urine Nitrate (Negative) Urine Bilirubin (Negative) Urine Urobilinogen (Negative) mg/dL Ur Leukocyte Dulce ase (Negative) 01/30/21 01/30/21 01/30/21 Range/Units 00:34 00:37 01:32 WBC (4.0-10.0) 10^3/ uL RBC (4.1-5.3) 10^6/u L Hgb (11.5-15.3) g/dL Hct (37.0-47.0) % MCV (81-99) fL MCH (28.0-34.0) pg MCHC (30.0-36.0) g/dL RDW (12.1-15.1) % Plt Count (130-400) 10^3/c mm MPV (7.4-10.4) fL Neut % (Auto) % Lymph % (Auto) % [place] % (Auto) % Eos % (Auto) % Baso % (Auto) % Neut # (Auto) (1.8-7.7) 10^3/u L Lymph # (Auto) (0.8-4.8) 10^3/u L [place] # (Auto) (0.2-0.9) 10^3/u L Eos # (Auto) (0.0-0.8) 10^3/u L Baso # (Auto) (0.0-0.1) 10^3/u L Nucleated RBC % (a uto) % Nucleated RBCs # /100WBC Sodium (136-145) mmol/L Potassium (3.5-5.1) mmol/L Chloride (98-107) mmol/L Carbon Dioxide (22-29) mmol/L Anion Gap (5-19) BUN (6-20) mg/dL Creatinine (0.5-0.9) mg/dL GFR Calculation (90-130) mL/min Glucose (65-115) mg/dL POC Glucose 384 H (70-110) mg/dL Calculated Osmolal ity (285-295) mOsm/k g Calcium (8.5-10.5) mg/dL Total Bilirubin (0.15-1.2) mg/dL AST (0-32) U/L ALT (0-33) U/L Alkaline Phosphata se (35-105) IU/L Troponin T Baselin e (0-10) ng/L Troponin T 120 Min council 6.00 (0-10) ng/L Delta Troponin T 0 (0-10) ABS# Total Protein (6.6-8.7) g/dL Albumin (3.5-5.2) g/dL Globulin (1.3-4.6) g/dL Urine Color Yellow (Yellow) Urine Appearance Clear (CLEAR) Urine pH 5 (5-7) Ur Specific Gravit y 1.015 (1.005-1.030) Urine Protein Neg (Negative) Urine Glucose (UA) 4+ H (Normal) Urine Ketones Negative (Negative) Urine Blood Neg (Negative) Urine Nitrate Negative (Negative) Urine Bilirubin Neg (Negative) Urine Urobilinogen Norm (Negative) mg/dL Ur Leukocyte Dulce ase Negative (Negative) Imaging Data^: CXR: Attestation: I personally reviewed and interpreted this imaging study as follows: My impression: No acute abnormality EKG Data^: EKG 1: Attestation: I personally reviewed and interpreted this EKG as follows: EKG interpretation date: 01/30/21 EKG interpretation time: 00:18 Interpretation: nsr hr [address] or t wave abnormalities qrs 92 qtc 390 Discharge Plan Discharge Patient Disposition: Home Clinical Impression: Chest pain Qualifiers: Chest pain type: unspecified Qualified Code(s): R07.9 - Chest pain, unspecified Condition: Stable Prescriptions: No Action Lantus Solostar U-100 Insulin 100 unit/mL (3 mL) insulin pen 55 unit SUBCUT DAILY Qty: 50 RF: 3 Aimovig Autoinjector 70 mg/mL auto-injector 75 mg SUBCUT .monthly RF: 0 temazepam [Restoril] 15 mg capsule 15 mg PO .h.s. PRNRF: 0 albuterol sulfate 90 mcg/actuation HFA aerosol inhaler 1 puff inhalation Q4H PRNRF: 0 duloxetine 60 mg capsule,delayed release(DR/EC) 120 mg PO .h.s. RF: 0 fluconazole [Diflucan] 200 mg tablet 200 mg PO DAILY Qty: 5 RF: 0 Farxiga 10 mg tablet 10 mg PO DAILY RF: 0 ibuprofen 200 mg tablet 800 mg PO DAILY PRNRF: 0 pantoprazole [Protonix] 40 mg tablet,delayed release (DR/EC) 40 mg PO DAILY RF: 0 promethazine 12.5 mg tablet 12.5 mg PO Q6H PRNRF: 0 valacyclovir 1 gram tablet 1,000 mg PO DAILY Qty: 30 RF: 6 Rexulti 2 mg tablet 2 mg PO DAILY Qty: 30 RF: 1 prazosin 5 mg capsule 10 mg PO .HS Qty: 60 RF: 1 hydroxyzine pamoate 25 mg capsule 25 mg PO TID PRN (Reason: anxiety) Qty: 90 RF: 1 cetirizine 10 mg Tablet 10 mg PO DAILY RF: 0 clopidogrel 75 mg Tablet 75 mg PO DAILY RF: 0 lisinopril 10 mg tablet 40 mg PO DAILY RF: 0 gabapentin 300 mg capsule 300 mg PO TID RF: 0 topiramate 50 mg cap,sprinkle,ER 24hr dose pack 50 mg PO DAILY RF: 0 Victoza 3-Benedict 0.6 mg/0.1 mL (18 mg/3 mL) pen injector 1.8 mg SUBCUT DAILY RF: 0 insulin lispro 100 unit/mL insulin pen 25 unit SUBCUT TID RF: 0 metoprolol tartrate 100 mg tablet 100 mg PO DAILY RF: 0 ondansetron 4 mg tablet,disintegrating 4 mg PO Q6H PRN (Reason: nausea and vomiting) Qty: 14 RF: 0 potassium chloride 20 mEq packet 40 meq PO TID Qty: 30 RF: 0 Discharge Orders: Discharge ED (Routine); Ordered 01/30/21 Ordered By: Lennox Anthony Discharge Diet: Advance as tolerated Discharge Activity: Resume usual activity Patient Instructions: Chest Pain (ED) Coding Level of Care Code 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
[2021-01-30 00:40] LABS: Add Urine Microscopic? NO; Charge for UA Resulting for Rev
[2021-01-30 00:41] LABS: Glucose Point of Care 384 mg/dL (70-110)
[2021-01-30 00:43] LABS: Alanine Aminotransferase 23 U/L (0-33); Albumin Level 4.5 g/dL (3.5-5.2); Alkaline Phosphatase 99 IU/L (35-105); Anion Gap 18.3 (5-19); Aspartate Amino Transferase 16 U/L (0-32); Blood Urea Nitrogen 15 mg/dL (6-20); Calcium 9.9 mg/dL (8.5-10.5); Carbon Dioxide 24 mmol/L (22-29); Chloride 95 mmol/L (98-107); Globulin 1.7 g/dL (1.3-4.6); Glomerular Filtration Rate 58.5 mL/min (90-130); Glucose 440 mg/dL (65-115); Osmolality Calculated 296 mOsm/kg (285-295); Potassium 4.3 mmol/L (3.5-5.1); Sodium 133 mmol/L (136-145); Total Bilirubin 0.5 mg/dL (0.15-1.2); Total Protein 6.2 g/dL (6.6-8.7); Troponin(5th) Baseline 6 ng/L (0-10)
[2021-01-30 00:50] LABS: Bilirubin Urine Neg (Negative); Blood Urine Neg (Negative); Glucose Urine UA 4+ (Normal); Ketones Urine Negative (Negative); Leukocyte Esterase Urine Negative (Negative); Nitrate Urine Negative (Negative); Protein Urine Neg (Negative); Specific Gravity, Urine 1.015 (1.005-1.030); Urine Appearance Clear (CLEAR); Urine Color Yellow (Yellow); Urobilinogen Urine Norm (Negative); pH Urine 5 (5-7)
[2021-01-30] MEDS: insulin regular-human 100 units/1 mL 6 UNIT IVP (00:51)
[2021-01-30 02:12] LABS: Troponin 5 2HR Delta 0 ABS# (0-10)
[2021-01-30 02:16] VITALS: BP 117/76; PULSE 86; RESP 19; O2SAT 96
[2021-01-30 02:37] VITALS: BP 116/75; PULSE 65; O2SAT 95
== END 2021-01-30 02:37 | disposition home or self-care (01) ==
PROVIDERS: Emergency Provider Emergency Medicine
DX: R07.9 Chest pain, unspecified (principal); Z79.02 Long term (current) use of antithrombotics/antiplatelets; Z79.4 Long term (current) use of insulin; J44.9 Chronic obstructive pulmonary disease, unspecified; I10 Essential (primary) hypertension; E11.40 Type 2 diabetes mellitus with diabetic neuropathy, unspecified; Z86.73 Personal history of transient ischemic attack (TIA), and cerebral infarction without residual deficits; Z87.891 Personal history of nicotine dependence
CPT/HCPCS: 36415; 36416; 71045; 80053; 81003; 82962; 84484; 85025; 93005; 96374; 99283; J1815

== ENCOUNTER → 2021-03-02 12:46 | Outpatient (BNVA) | payer MEDICAID, SELFPAY | PROVIDERS: Visit Provider Psychiatry & Neurology Psychiatry | DX: F33.3 Major depressive disorder, recurrent, severe with psychotic symptoms (principal); F41.1 Generalized anxiety disorder | CPT/HCPCS: 99213 ==

== ENCOUNTER 2021-03-03 11:14 | Outpatient (CLI) | payer MEDICAID, SELFPAY ==
[2021-03-03 11:40] LABS: Basophils # 0.1 10^3/uL (0.0-0.1); Basophils % 0.7 %; Eosinophils # 0.5 10^3/uL (0.0-0.8); Eosinophils % 6.4 %; Hematocrit 45.3 % (37.0-47.0); Hemoglobin 14.9 g/dL (11.5-15.3); Lymphocytes # 1.9 10^3/uL (0.8-4.8); Lymphocytes % 26.2 %; Mean Corpuscular HGB Conc 32.9 g/dL (30.0-36.0); Mean Corpuscular Hemoglobin 30.1 pg (28.0-34.0); Mean Corpuscular Volume 91.5 fL (81-99); Mean Platelet Volume 10.4 fL (7.4-10.4); Monocytes # 0.5 10^3/uL (0.2-0.9); Monocytes % 7.2 %; Neutrophils # 4.28 10^3/uL (1.8-7.7); Neutrophils % 59.2 %; Nucleated Red Blood Cells % 0 %; Platelet Count 193 10^3/cmm (130-400); Red Blood Count 4.95 10^6/uL (4.1-5.3); Red Cell Distribution Width 12.4 % (12.1-15.1); White Blood Count 7.2 10^3/uL (4.0-10.0)
[2021-03-03 12:07] LABS: NT Pro B Type Natriuretic Pept 122 pg/mL (0-125)
[2021-03-04 09:57] LABS: Alpha 1 Antitrypsin 98 mg/dL (83-199)
[2021-03-04 17:27] LABS: Alternaria Alternata (M6) Ige <0.10 kU/L; Alternaria Class 0; Bermuda Class 0; Bermuda Grass (G2) Ige <0.10 kU/L; Cat Dander (E1) Ige <0.10 kU/L; Cat Dander Class 0; Common Ragweed (Short) (W1) Ig <0.10 kU/L; D. Farinae Class 0; Dermatophagoides Class 0; Dermatophagoides Farinae (D2) <0.10 kU/L; Dermatophagoides Pteronyssinus <0.10 kU/L; Dog Dander (E5) Ige <0.10 kU/L; Dog Dander Class 0; Elm (T8) Ige <0.10 kU/L; Elm Class 0; English Plantain (W9) Ige <0.10 kU/L; English Plantain Class 0; House Dust (Greer) (H1) Ige <0.10 kU/L; House Dust (Hollister- Stier) <0.10 kU/L; House Dust Class 0; Immunoglobulin E <2 kU/L (<OR=114); Johnson Grass (G10) Ige <0.10 kU/L; Johnson Grass Cl 0; June Grass Class 0; June Grass(Kentucky Blue) (G8) <0.10 kU/L; Lamb'S Quarters (Goose Foot) <0.10 kU/L; Lamb'S Quarters Class 0; Maple (Box Elder) (T1) Ige <0.10 kU/L; Maple Class 0; Meadow Fescue (G4) Ige <0.10 kU/L; Meadow Fescue Class 0; Mucor Racemosus Class 0; Oak (T7) Ige <0.10 kU/L; Oak Class 0; Orchard Grass (Cocksfoot) (G3) <0.10 kU/L; Penicillium Class 0; Penicillium Notatum (M1) Ige <0.10 kU/L; Perennial Rye Grass (G5) Ige <0.10 kU/L; Perennial Rye Grass Class 0; Ragweeed Class 0; Rough Marsh Elder (W16) Ige 0.21 kU/L; Rough Marsh Elder Class 0/1; Sweet Vernal Class 0; Sweet Vernal Grass (G1) Ige <0.10 kU/L; Timothy Grass (G6) Ige <0.10 kU/L; Timothy Grass Class 0
[2021-03-05 19:18] LABS: Aspergillus Fumigatus, Igg Ab, 6.5 mg/L (<=102)
== END 2021-03-03 11:15 | disposition home or self-care (01) ==
LOC: LAB 11:17
PROVIDERS: PCP Nurse Practitioner Family; Visit Provider Internal Medicine Pulmonary Disease
DX: R06.02 Shortness of breath (principal); J44.9 Chronic obstructive pulmonary disease, unspecified; J45.909 Unspecified asthma, uncomplicated
CPT/HCPCS: 36415; 82103; 82785; 83880; 85025; 86003

== ENCOUNTER 2021-03-10 10:54 | Observation (INO) | payer MEDICAID, SELFPAY ==
[2021-03-10] VITALS (8 sets, daily range): BP systolic 109–179; BP diastolic 83–120; PULSE 67–74; RESP 16–24; TEMP 36.5–36.8; O2SAT 95–100; BMI 45.2
--- NOTE | 2021-03-10 11:19 | XR_ITS ---
WS: [id number] Portable AP upright chest, 03/10/2021 Clinical Data: cp Comparison: Portable chest, 01/30/2021. Findings: No nodules, masses or effusions are seen. The heart is normal. The pulmonary vascularity is not increased. No pneumonia or pneumothorax is seen. XR/XR chest 1V portable [id number] Impression: Negative chest.
--- NOTE | 2021-03-10 11:19 | ECG_ITS ---
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
--- NOTE | 2021-03-10 11:42 | ED_ITS ---
HPI - Chest Pain General: Chief Complaint: Chest Pain Stated Complaint: Chest pain, headache, weak in R side Time Seen by Provider: 03/10/21 11:41 Source: patient Mode of arrival: ambulatory Limitations: no limitations History of Present Illness: HPI narrative: HPI: This is a 50 yo patient hx of HTN, DM, ?CKD (baseline Cr of 1), R sided migraine, prior hx of TIA with R sided numbness presenting to the ED w/ complaints of R sided migraine x 1 day, vertigo like symptoms x 3, and R sided nubmness and R sided chest pain without radiation. Patient reports that she was at home when all these symptoms of R sided numbness and chest pain started at this time. Patient denies any weakness, diplopia, facial drop, slurring of speech and difficulty speaking. Patient was worked up for TIA last year at an OSH. Of note, patient has a echo study from 12/08/2020 which was limited study. In terms of chest pain, no radiation to the arms, jaw or back, but patient reports that her chest pain has worsend with exertion in the last few months. Denies any recent sympathomimetic drug use. Patient denies any cough. Denies palpitations, syncope symptoms. Pain not positional. Norecent immobility, surgery, unilateral leg swelling, or prior PE. Patient denies any orthopnea, paroxysmal nocturnal dyspnea, weight gain, or increased leg swellings. Hx of vertigo in the past, report sudden onset of symptom today. Onset: 1 day ago chest pain and headache, R sided numbness, 3 days of vertigo Duration: ongoing for the last 1-3 days Location: home Severity: moderate Review of Systems Narrative: Constitutional: No fever, no chills. HEENT: No vision changes, no sore throat. CV: +chest pain, no palpitations. PULM: No cough, no dyspnea. GI: No abdominal pain, no N/V/D. : No dysuria, no frequency, no hematuria. MSKEL: No arthralgias, no edema. SKIN: No new rashes, no lesions. NEURO: + R sided headache/+R sided numbness, no focal weakness. + vertigo HEME: No easy bleeding or bruising. PSYCH: No change in mood or affect. PFSH ED PFSH: Medical History Asthma CKD (chronic kidney disease) COPD (chronic obstructive pulmonary disease) Depression DM type 2 (diabetes mellitus, type 2) Hypertension Migraines Neuropathy TIA (transient ischemic attack) Surgical History History of cholecystectomy History of tubal ligation Family History Mother Cancer Stage 4 kidney cancer Chronic kidney disease (CKD) Diabetes Hypertension Grandmother Cancer Maternal-Lung cancer Family/Other Cancer Maternal Aunt--Unknown Father Chronic kidney disease (CKD) Diabetes Hyperlipidemia Hypertension Daughter Diabetes Grandfather Stroke Maternal Denies family history of Ovarian cyst Anesthesia complication Bleeding disorder Thyroid disease Social History Smoking and tobacco status: current every day smoker cigarettes Years cigarettes smoked: 3 [ Other cigarette details: Hx o 2 PPD x 2 Years ] Second hand smoke exposure: Yes Smoking risk assessment/counseling performed?: Yes Alcohol intake: current Alcohol intake frequency: holidays/special occasions only Counseling given: No Counseling given: No Lives independently: Yes Household members: significant other Marital status: Life Partner Current occupational status: disabled History of recent travel: No Current gender identity: Female Physical Exam Narrative: EXAM NARRATIVE: Head: Atraumatic Eyes: PERRL, EOMI, conjunctiva without injection ENT: Throat without erythema, lesions or exudate, MMM NECK: Supple, trachea midline, no JVD LUNGS: LCTA CV: RRR, S1,S2, no murmurs, rubs, gallops. 2+ peripheral pulses in UEs ABDOMEN: Soft, nontender, nondistended, BS x4, no rigidity, no guarding, no rebound EXTREMITY: Normal ROM, no pitting edema, no calf tenderness to palpation SKIN: No rash or erythema NEURO: Awake and alert. No focal motor deficits. Mental status: A/Ox3 CN II-XII tested and intact. Sensations intact grossly in all extremities Motor: Normal tone and bulk. No abnormal movements appreciated. No pronator drift. Strength tested and 5/5 in bilateral wrist flexion/extension, elbow fl exion/extension, shoulder abduction, straight leg raise, knee flexion/extension, ankle dorsiflexion/plantarflexion. Patient ambulates with a steady gait. Coordination: Finger to nose and heel to shay testing intact bilaterally. PSYCH: Normal mood and affect. Course Vital Signs: Vital signs: Vital Signs Temperature 98.3 F 03/10/21 11:01 Pulse Rate 73 03/10/21 15:05 Respiratory Rate 23 H 03/10/21 15:05 Blood Pressure 109/84 03/10/21 12:23 Pulse Oximetry 97 03/10/21 15:05 MDM - Chest Pain MDM Narrative: Medical decision making narrative: This 50-year-old female history of hypertension diabetes, questionable CKD, right-sided migraine prior history of TIA presenting to the emergency room with multiple complaints today including right-sided numbness sensation loss x3 days, right sided symptoms, right-sided headache, and exertional chest pain. CT brain and CTA head did not show any signs of vascular diseases or mass. Patient thinks that her symptoms is similar to her prior TIA symptoms. Currently chest pain-free. EKG normal. Troponin normal. Patient is allergic to aspirin. Patient status post nitroglycerin. Case Dr. Bowser with recommendation for inpatient admission, MRI evaluation for posterior circulation evaluation, and echo. Disposition: Admission Lab Data: Labs: Lab Results 03/10/21 03/10/21 03/10/21 Range/Units 11:45 11:45 11:45 WBC 8.6 (4.0-10.0) 10^3/ uL RBC 4.94 (4.1-5.3) 10^6/u L Hgb 14.8 (11.5-15.3) g/dL Hct 44.5 (37.0-47.0) % MCV 90.1 (81-99) fL MCH 30.0 (28.0-34.0) pg MCHC 33.3 (30.0-36.0) g/dL RDW 12.1 (12.1-15.1) % Plt Count 218 (130-400) 10^3/c mm MPV 9.8 (7.4-10.4) fL Neut % (Auto) 59.9 % Lymph % (Auto) 26.8 % [place] % (Auto) 6.9 % Eos % (Auto) 5.0 % Baso % (Auto) 0.9 % Neut # (Auto) 5.13 (1.8-7.7) 10^3/u L Lymph # (Auto) 2.3 (0.8-4.8) 10^3/u L [place] # (Auto) 0.6 (0.2-0.9) 10^3/u L Eos # (Auto) 0.4 (0.0-0.8) 10^3/u L Baso # (Auto) 0.1 (0.0-0.1) 10^3/u L Nucleated RBC % (a uto) 0 % Nucleated RBCs # 0.0 /100WBC Sodium 135 L (136-145) mmol/L Potassium 3.9 (3.5-5.1) mmol/L Chloride 102 (98-107) mmol/L Carbon Dioxide 26 (22-29) mmol/L Anion Gap 10.9 (5-19) BUN 10 (6-20) mg/dL Creatinine 0.9 (0.5-0.9) mg/dL GFR Calculation 66.0 L (90-130) mL/min Glucose 166 H (65-115) mg/dL Calculated Osmolal ity 283 L (285-295) mOsm/k g Calcium 8.9 (8.5-10.5) mg/dL Total Bilirubin 0.3 (0.15-1.2) mg/dL AST 26 (0-32) U/L ALT 37 H (0-33) U/L Alkaline Phosphata se 95 (35-105) IU/L Troponin T Baselin e 6 (0-10) ng/L Troponin T 120 Min ralph (0-10) ng/L Delta Troponin T (0-10) ABS# NT-Pro-B Natriuret Pep 189 H (0-125) pg/mL Total Protein 6.2 L (6.6-8.7) g/dL Albumin 4.3 (3.5-5.2) g/dL Globulin 1.9 (1.3-4.6) g/dL SARS-CoV-2 Ag (Rap id) (Negative) 03/10/21 03/10/21 Range/Units 13:23 14:30 WBC (4.0-10.0) 10^3/ uL RBC (4.1-5.3) 10^6/u L Hgb (11.5-15.3) g/dL Hct (37.0-47.0) % MCV (81-99) fL MCH (28.0-34.0) pg MCHC (30.0-36.0) g/dL RDW (12.1-15.1) % Plt Count (130-400) 10^3/c mm MPV (7.4-10.4) fL Neut % (Auto) % Lymph % (Auto) % [place] % (Auto) % Eos % (Auto) % Baso % (Auto) % Neut # (Auto) (1.8-7.7) 10^3/u L Lymph # (Auto) (0.8-4.8) 10^3/u L [place] # (Auto) (0.2-0.9) 10^3/u L Eos # (Auto) (0.0-0.8) 10^3/u L Baso # (Auto) (0.0-0.1) 10^3/u L Nucleated RBC % (a uto) % Nucleated RBCs # /100WBC Sodium (136-145) mmol/L Potassium (3.5-5.1) mmol/L Chloride (98-107) mmol/L Carbon Dioxide (22-29) mmol/L Anion Gap (5-19) BUN (6-20) mg/dL Creatinine (0.5-0.9) mg/dL GFR Calculation (90-130) mL/min Glucose (65-115) mg/dL Calculated Osmolal ity (285-295) mOsm/k g Calcium (8.5-10.5) mg/dL Total Bilirubin (0.15-1.2) mg/dL AST (0-32) U/L ALT (0-33) U/L Alkaline Phosphata se (35-105) IU/L Troponin T Baselin e (0-10) ng/L Troponin T 120 Min ralph 6.00 (0-10) ng/L Delta Troponin T 0 (0-10) ABS# NT-Pro-B Natriuret Pep (0-125) pg/mL Total Protein (6.6-8.7) g/dL Albumin (3.5-5.2) g/dL Globulin (1.3-4.6) g/dL SARS-CoV-2 Ag (Rap id) Negative (Negative) Imaging Data^: CT Head: My impression: [place], [place] [address]XA Scan ReportSigned Patient: Agnes Ignacio #: [id number]: 1970Acct#:[id number]/Sex: 50 / FADM Date: 03/10/21Loc: ERRoom/Bed:Attending Dr: Ordering Provider/Ordering MD: Yesica Jarrell MD Date of Service: 03/10/21 Procedure(s): CT head wo con* [id number] Accession Number(s): [id number] Report Number: [id number] WS: [id number] CT HEAD NONCONTRAST HISTORY: headache evaluation, prior hx of TIA TECHNIQUE: Contiguous axial imaging performed through the brain in 2.5 mm imaging. Bone and soft tissue windows. Sagittal and coronal reformats reviewed. All CT scans at [facility] use at least one of these dose optimization techniques: automated exposure control; mA and/or kV adjustment per patient size (includes targeted exams where dose is matched to clinical indication); or iterative reconstruction. DLP: 850.44 mGy.cm COMPARISON: None available. No acute intracranial hemorrhage, midline shift or mass effect. No atrophy or prior infarcts or herniation. Ventricles: Normal size with no hydrocephalus. Paranasal sinuses: As visualized are clear. Mastoid air cells: Well pneumatized. Calvarium and scalp: Skull is intact with no soft tissue edema or swelling. CT/CT head wo con* [id number] IMPRESSION: Negative head CT. Dictated By:Dorie Jeong DOSigned By:Dorie Jeong DOSigned Date/Time:03/10/21 1313DD/ 1258 Radiologist's impression: [address] [address]PS Scan ReportSigned Patient: Agnes Ignacio #: [id number]: 1970Acct#:[id number]/Sex: 50 / FADM Date: 03/10/21Loc: ERRoom/Bed:Attending Dr: Ordering Provider/Ordering MD: Yesica Jarrell MD Date of Service: 03/10/21 Procedure(s): CT angio headneck* [id number] Accession Number(s): [id number] Report Number: [id number] WS: [id number] CT ANGIOGRAM CEREBRAL AND CAROTID ARTERIES HISTORY: hx of TIA, r sided weakness x 1 day TECHNIQUE: CT angiogram is performed of the carotid and cerebral arteries. During arterial injection imaging is obtained from the skull vertex to the aortic arch in 1.25 mm imaging. Coronal and sagittal reformats are submitted. Additional multi planar reformats of the carotid and cerebral arteries are submitted, MIP imaging also reviewed. NASCET criteria utilized. All CT scans at [facility] use at least one of these dose optimization techniques: automated exposure control; mA and/or kV adjustment per patient size (includes targeted exams where dose is matched to clinical indication); or iterative reconstruction. CONTRAST: Visipaque 320; 95 mL IV. DLP: 5359.31 mGy.cm COMPARISON: None available. Carotid Angiogram: Right carotid: Common carotid artery: Arises normally from the innominate artery. No significant plaque or stenosis. Internal carotid artery: No plaque or stenosis. External carotid artery: Patent. Left carotid: Common carotid artery: Arises normally from the aorta. No significant plaque or stenosis. Internal carotid artery: No significant stenosis. Mild atherosclerotic plaque. External carotid artery: Patent. Right vertebral artery: Unremarkable. Left vertebral artery: Unremarkable. Arises normally from the subclavian artery. Subclavian arteries: No stenosis or significant abnormality. Upper thorax: Normal. Thyroid gland: Normal. Osseous structures: Unremarkable. CEREBRAL ANGIOGRAM: Intracranial vertebral arteries: Normal with no significant atherosclerosis. Basilar artery: No significant stenosis or occlusion. No aneurysm. Intracranial Internal carotid arteries: Demonstrates no significant stenosis or plaque. Middle cerebral arteries: Normal. Anterior cerebral arteries and ACOM: Normal. Posterior cerebral arteries and PCOM's: Normal. Dural venous sinuses are normally enhancing. Mastoid air cells: Normal. Paranasal sinuses: Normal. Calvarium: Normal. CT/CT angio headneck* [id number] IMPRESSION: 1. No significant carotid artery stenosis. Minimal plaque LEFT ICA. 2. Unremarkable [place] of [place]. Dictated By:Dorie Jeong DOSigned By:Dorie Jeong DOSigned Date/Time:03/10/21 1335DD/ 1313 Vanesa Ignacio (c) 50 F 1970 [facility] [facility], [place] [address]WGzr ReportSigned Patient: Agnes Ignacio #: [id number]: 1970Acct#:[id number]/Sex: 50 / FADM Date: 03/10/21Loc: ERRoom/Bed:Attending Dr: Ordering Provider/Ordering MD: Antoni Rodriguez Date of Service: 03/10/21 Procedure(s): XR chest 1V portable [id number] Accession Number(s): [id number] Report Number: [id number] WS: [id number] Portable AP upright chest, 03/10/2021 Clinical Data: cp Comparison: Portable chest, 01/30/2021. Findings: No nodules, masses or effusions are seen. The heart is normal. The pulmonary vascularity is not increased. No pneumonia or pneumothorax is seen. XR/XR chest 1V portable [id number] Impression: Negative chest. Dictated By:Ольга Hall MDSigned By:Ольга Hall MDSigned Date/Time:03/10/21 1142DD/ 1141 Other Imaging: Radiologist's impression: Impressions Chest X-Ray 03/10/21 11:19 Impression: Negative chest. Head CT 03/10/21 12:04 IMPRESSION: Negative head CT. Head/Neck CTA 03/10/21 12:04 IMPRESSION: 1. No significant carotid artery stenosis. Minimal plaque LEFT ICA. 2. Unremarkable [place]. Critical Care Time Critical Care Time: Attestation: Impressions Chest X-Ray 03/10/21 11:19 Impression: Negative chest. Head CT 03/10/21 12:04 IMPRESSION: Negative head CT. Head/Neck CTA 03/10/21 12:04 IMPRESSION: 1. No significant carotid artery stenosis. Minimal plaque LEFT ICA. 2. Unremarkable [place]. Discharge Plan Discharge Patient Disposition: Admitted As Inpatient Condition: Stable Coding Level of Care Code ED Fusion Juncture Grinder for Jd Bellamy
[2021-03-10 11:57] LABS: Basophils # 0.1 10^3/uL (0.0-0.1); Basophils % 0.9 %; Eosinophils # 0.4 10^3/uL (0.0-0.8); Hematocrit 44.5 % (37.0-47.0); Hemoglobin 14.8 g/dL (11.5-15.3); Lymphocytes # 2.3 10^3/uL (0.8-4.8); Lymphocytes % 26.8 %; Mean Corpuscular HGB Conc 33.3 g/dL (30.0-36.0); Mean Corpuscular Volume 90.1 fL (81-99); Mean Platelet Volume 9.8 fL (7.4-10.4); Monocytes # 0.6 10^3/uL (0.2-0.9); Monocytes % 6.9 %; Neutrophils # 5.13 10^3/uL (1.8-7.7); Neutrophils % 59.9 %; Nucleated Red Blood Cells % 0 %; Platelet Count 218 10^3/cmm (130-400); Red Blood Count 4.94 10^6/uL (4.1-5.3); Red Cell Distribution Width 12.1 % (12.1-15.1); White Blood Count 8.6 10^3/uL (4.0-10.0)
--- NOTE | 2021-03-10 12:04 | CT_ITS ---
WS: [id number] CT HEAD NONCONTRAST HISTORY: headache evaluation, prior hx of TIA TECHNIQUE: Contiguous axial imaging performed through the brain in 2.5 mm imaging. Bone and soft tiss ue windows. Sagittal and coronal reformats reviewed. All CT scans at [facility] use at le ast one of these dose optimization techniques: automated exposure control; mA and/or kV adjustment pe r patient size (includes targeted exams where dose is matched to clinical indication); or iterative r econstruction. DLP: 850.44 mGy.cm COMPARISON: None available. No acute intracranial hemorrhage, midline shift or mass effect. No atrophy or prior infarcts or herniation. Ventricles: Normal size with no hydrocephalus. Paranasal sinuses: As visualized are clear. Mastoid air cells: Well pneumatized. Calvarium and scalp: Skull is intact with no soft tissue edema or swelling. CT/CT head wo con* [id number] IMPRESSION: Negative head CT.
--- NOTE | 2021-03-10 12:04 | CT_ITS ---
WS: [id number] CT ANGIOGRAM CEREBRAL AND CAROTID ARTERIES HISTORY: hx of TIA, r sided weakness x 1 day TECHNIQUE: CT angiogram is performed of the carotid and cerebral arteries. During arterial injection imaging is obtained from the skull vertex to the aortic arch in 1.25 mm imaging. Coronal and sagittal reformats are submitted. Additional multi planar reformats of the carotid and cerebral arteries are submitted, MIP imaging also reviewed. NASCET criteria utilized. All CT scans at [facility] use at least one of these dose optimization techniques: automated exposure control; mA and/or kV ad justment per patient size (includes targeted exams where dose is matched to clinical indication); or iterative reconstruction. CONTRAST: Visipaque 320; 95 mL IV. DLP: 5359.31 mGy.cm COMPARISON: None available. Carotid Angiogram: Right carotid: Common carotid artery: Arises normally from the innominate artery. No significant plaque or stenosis. Internal carotid artery: No plaque or stenosis. External carotid artery: Patent. Left carotid: Common carotid artery: Arises normally from the aorta. No significant plaque or stenosis. Internal carotid artery: No significant stenosis. Mild atherosclerotic plaque. External carotid artery: Patent. Right vertebral artery: Unremarkable. Left vertebral artery: Unremarkable. Arises normally from the subclavian artery. Subclavian arteries: No stenosis or significant abnormality. Upper thorax: Normal. Thyroid gland: Normal. Osseous structures: Unremarkable. CEREBRAL ANGIOGRAM: Intracranial vertebral arteries: Normal with no significant atherosclerosis. Basilar artery: No significant stenosis or occlusion. No aneurysm. Intracranial Internal carotid arteries: Demonstrates no significant stenosis or plaque. Middle cerebral arteries: Normal. Anterior cerebral arteries and ACOM: Normal. Posterior cerebral arteries and PCOM's: Normal. Dural venous sinuses are normally enhancing. Mastoid air cells: Normal. Paranasal sinuses: Normal. Calvarium: Normal. CT/CT angio headneck* [id number] IMPRESSION: 1. No significant carotid artery stenosis. Minimal plaque LEFT ICA. 2. Unremarkable [place] of [place].
[2021-03-10 12:31] LABS: Alanine Aminotransferase 37 U/L (0-33); Albumin Level 4.3 g/dL (3.5-5.2); Alkaline Phosphatase 95 IU/L (35-105); Anion Gap 10.9 (5-19); Aspartate Amino Transferase 26 U/L (0-32); Blood Urea Nitrogen 10 mg/dL (6-20); Calcium 8.9 mg/dL (8.5-10.5); Carbon Dioxide 26 mmol/L (22-29); Chloride 102 mmol/L (98-107); Globulin 1.9 g/dL (1.3-4.6); Glucose 166 mg/dL (65-115); NT Pro B Type Natriuretic Pept 189 pg/mL (0-125); Osmolality Calculated 283 mOsm/kg (285-295); Potassium 3.9 mmol/L (3.5-5.1); Sodium 135 mmol/L (136-145); Total Bilirubin 0.3 mg/dL (0.15-1.2); Total Protein 6.2 g/dL (6.6-8.7)
[2021-03-10 12:32] LABS: Troponin(5th) Baseline 6 ng/L (0-10)
[2021-03-10] MEDS: iodixanol 320 mg/mL 100mL Btl IV ×2 (12:45→12:46)
--- NOTE | 2021-03-10 13:19 | ECG_ITS ---
[facility] Test Date: 2021-03-10 Pat Name: Vanesa Ignacio Department: Room: Gender: Female Absorption Operator: : 1970 Requested By: Antoni Rodriguez Order Number: [id number] Mi MD: PEREZ MOLINA Measurements Intervals [place] Rate: 73 P: 63 [place]: 148 QRS: 49 QRSD: 103 T: 37 QT: 385 QTc: 426 Interpretive Statements SINUS RHYTHM LOW QRS VOLTAGE IN PRECORDIAL LEADS [QRS DEFLECTION < 1.0 mV IN CHEST LEADS] Compared to ECG 01/30/2021 00:18:04 No significant changes Electronically Signed On 03-10-2021 22:33:21 CDT by PEREZ MOLINA [id number]
[2021-03-10] MEDS: sodium chloride 0.9% 500 ML 999 ML IV (14:58)
[2021-03-10 15:19] LABS: Troponin 5 2HR Delta 0 ABS# (0-10)
[2021-03-10 15:38] LABS: SARS Covid-2 Antigen Negative (Negative)
--- NOTE | 2021-03-10 17:19 | ECG_ITS ---
[facility] ED Test Date: 2021-03-10 Pat Name: Vanesa Ignacio Department: Room: Gender: Female Registered Physical Therapist: : 1970 Requested By: Antoni Rodriguez Order Number: [id number] Mi MD: Rose Chan M.D. Measurements Intervals [place] Rate: 74 P: 66 [place]: 150 QRS: 59 QRSD: 100 T: 50 QT: 384 QTc: 428 Interpretive Statements SINUS RHYTHM WITH OCCASIONAL SUPRAVENTRICULAR PREMATURE COMPLEXES LOW QRS VOLTAGE IN PRECORDIAL LEADS [QRS DEFLECTION < 1.0 mV IN CHEST LEADS] NONSPECIFIC T-WAVE ABNORMALITY Compared to ECG 03/10/2021 13:01:34 T-wave abnormality now present Electronically Signed On 03-12-2021 12:40:25 CDT by Rose Chan M.D. [id number]
--- NOTE | 2021-03-10 19:10 | P.HP_ITS ---
Providers/Chief Complaint Primary Care Provider: Sandhya Yin NP Chief Complaint: Chest pain, headache, weak in R side History of Present Illness 50-year-old lady with history of TIA, migraine headaches, pending appointment to see neurology regarding both, presents due to several days of dizziness (room spinning around her), headache on the right side, numbness, weakness on the right side of the body, chest pain of both sides of the chest. She otherwise denies fever chills. She lives in a trailer, although denies significant exposure to ticks, although has been helping her fianc? clear some trees recently. Reports some intermittent on and off tinnitus in the right ear. Denies earache, hearing loss, ear discharge. She has been on and off smoking, but states has recently stop smoking again. Review of Systems Const: Denies: fever(s), chills, body aches or malaise Eyes: Reports: photophobia; Denies: change in vision or eye redness ENMT: Denies: throat pain, oral sores or ear or mastoid pain Card: Reports: chest pain; Denies: edema, pre-syncope or dyspnea on exertion Resp: Denies: dyspnea, productive cough, change in phlegm color or hemoptysis GI: Denies: abdominal pain, nausea, vomiting, diarrhea, constipation, hematochezia or melena : Denies: flank pain, urinary frequency or hematuria Musc: Denies: back pain, joint swelling or joint redness Skin/Breast: Denies: rash, sores or new lesions Neuro: Reports: headache(s), numbness in extremities (R side), weakness in extremities (R side) and dizziness; Denies: confusion or seizure-like activity Endo: Denies: polyuria or polydipsia Morgan/Lymph: Denies: easy bleeding or purpura All/Imm: Denies: urticaria, throat swelling or tongue swelling Medications/Allergies Home Medications Medication Instructions Recorded Confirmed Last Taken Type cetirizine 10 mg PO BEDTIME 07/11/20 03/10/21 03/09/21 History clopidogrel 75 mg PO BEDTIME 07/11/20 03/10/21 03/09/21 History dapagliflozin 10 mg tablet 10 mg PO BEDTIME 11/11/20 03/10/21 03/09/21 History gabapentin 300 mg capsule 900 mg PO BEDTIME cap 11/11/20 03/10/21 Unknown History ibuprofen 200 mg tablet 800 mg PO PRN tab 11/11/20 03/10/21 Unknown History liraglutide 0.6 mg/0.1 mL (18 mg/3 1.8 mg SUBCUT QAM ml 11/11/20 03/10/21 03/10/21 History mL) subcutaneous pen injector lisinopril 10 mg tablet 40 mg PO BEDTIME tab 11/11/20 03/10/21 03/09/21 History promethazine 12.5 mg tablet 12.5 mg PO Q6H PRN 11/11/20 03/10/21 Unknown History metoprolol tartrate 100 mg tablet 100 mg PO BEDTIME tab 11/12/20 03/10/21 03/09/21 History albuterol sulfate 90 mcg/actuation 1 puff INHALATION Q4H PRN g 11/26/20 03/10/21 Unknown History aerosol inhaler ondansetron 4 mg PO Q6H PRN #14 tab 12/03/20 03/10/21 Unknown Rx hydroxyzine HCl 50 mg tablet 50 mg PO QID PRN #120 tab 03/02/21 03/10/21 03/09/21 Rx ipratropium 0.5 mg-albuterol 3 mg 3 ml INHALATION QID PRN 03/03/21 03/10/21 U nknown History (2.5 mg base)/3 mL nebulization soln Lasix 40 mg PO QAM 03/10/21 03/10/21 03/10/21 09:00 History Singulair 10 mg PO DAILY 03/10/21 03/10/21 Unknown History atorvastatin 40 mg PO BEDTIME 03/10/21 03/10/21 03/09/21 History brexpiprazole [Rexulti] 2 mg PO BEDTIME 03/10/21 03/10/21 03/09/21 History duloxetine 120 mg PO BEDTIME 03/10/21 03/10/21 03/09/21 History insulin glargine [Lantus Solostar 60 unit SUBCUT QAM 03/10/21 03/10/21 03/10/21 09:00 History U-100 Insulin] insulin lispro 25 unit SUBCUT .WITH EVERY MEAL 03/10/21 03/10/21 03/10/21 09:00 History mirtazapine 15 mg PO BEDTIME 03/10/21 03/10/21 03/09/21 History mometasone-formoterol [Dulera] 2 puff INHALATION BID 03/10/21 03/10/21 Unknown History multivitamin 1 tab PO DAILY 03/10/21 03/10/21 Unknown History prazosin 10 mg PO BEDTIME 03/10/21 03/10/21 03/09/21 History tiotropium bromide [Spiriva 2 puff INHALATION DAILY 03/10/21 03/10/21 Unknown History Respimat] valacyclovir 1,000 mg PO QPM 03/10/21 03/10/21 03/09/21 History Allergies Allergy/AdvReac Type Severity Reaction Status Date / Time aspirin Allergy Intermediate ALGY-Hives Verified 03/10/21 13:20 cephalexin Allergy Intermediate ALGY-Hives Verified 03/10/21 13:20 diphenhydramine Allergy Intermediate ALGY-Hives Verified 03/10/21 13:20 [From Benadryl] metformin Allergy Intermediate ALGY-Hives Verified 03/10/21 13:20 PFSH Acute PFSH: Medical History Asthma CKD (chronic kidney disease) COPD (chronic obstructive pulmonary disease) Depression DM type 2 (diabetes mellitus, type 2) Hypertension Migraines Neuropathy TIA (transient ischemic attack) Surgical History History of cholecystectomy History of tubal ligation Family History Mother Cancer Stage 4 kidney cancer Chronic kidney disease (CKD) Diabetes Hypertension Grandmother Cancer Maternal-Lung cancer Family/Other Cancer Maternal Aunt--Unknown Father Chronic kidney disease (CKD) Diabetes Hyperlipidemia Hypertension Daughter Diabetes Grandfather Stroke Maternal Denies family history of Ovarian cyst Anesthesia complication Bleeding disorder Thyroid disease Social History Smoking and tobacco status: current every day smoker cigarettes Years cigarettes smoked: 3 [ Other cigarette details: Hx o 2 PPD x 2 Years ] Second hand smoke exposure: Yes Smoking risk assessment/counseling performed?: Yes Alcohol intake: current Alcohol intake frequency: holidays/special occasions only Counseling given: No Counseling given: No Lives independently: Yes Household members: significant other Marital status: Life Partner Current occupational status: disabled History of recent travel: No Current gender identity: Female Vitals/I&O/Wt Last Vital Signs Temp 98.3 F 03/10/21 11:01 Pulse 67 03/10/21 17:00 Resp 17 03/10/21 17:00 BP 109/84 03/10/21 12:23 Pulse Ox 98 03/10/21 17:00 Weight last 48 hrs Weight 131.088 kg Physical Exam Const: COMMON NORMALS: no acute distress and patient oriented x3 NUTRITIONAL APPEARANCE: obese morbidly obese HENMT: COMMON NORMALS: oropharynx normal Neck/C-Spine: COMMON NORMALS: no JVD Resp: COMMON NORMALS: normal respiratory effort and clear to auscultation bilaterally AUSCULTATION: clear to auscultation bilaterally Cardio: COMMON NORMALS: no JVD, regular rhythm, S1 normal heart sound present, S2 normal heart sound present and No murmurs present (Cardio) RHYTHM: regular rhythm HEART SOUNDS: S1 normal heart sound present and S2 normal heart sound present GI: COMMON NORMALS: Normal to inspection, nondistended, normoactive bowel so unds present, Soft to palpation and non-tender PALPATION: Yes Soft to palpation Extremity: COMMON NORMALS: no joint enlargement and no pedal edema Neuro: COMMON NORMALS: patient oriented x3 and moves all extremities MENINGEAL SIGNS: Yes no meningeal signs COORDINATION/BALANCE: [id number] test normal SPEECH: speech normal SENSORY EXAM: Yes Abnormal double simultaneous stimulation for sensation (Intermittent UE R side neglect) MOTOR EXAM: 5/5 motor strength present throughout and Pronator motor function present (Mild R side) OTHER: No trouble tracking, but says does get vertigo worsening with tracking bilaterally. Visual ramos full to confrontation. Skin: COMMON NORMALS: no rashes or lesions noted GENERAL SKIN EXAM: no rashes or lesions noted Data : 03/10/21 11:45 03/10/21 11:45 Micro: Microbiology 03/10/21 14:33 Blood Culture - Preliminary Blood SPECIMEN COLLECTED 03/10/21 14:30 Blood Culture - Preliminary Blood SPECIMEN COLLECTED A&P Assessment and plan (1) Focal neurological deficit: Focal neurologic deficit with sensory deficits in the right side, right- sided sensory neglect, right side mild weakness, pronator drift. Outside of window for TPA. CT angiogram in ER without obstruction. Associated with headache. Chest pain. Has history of migraines. Discussed with her she does state has history of numbness in the right side, history of TIA. 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 Pending assessment regarding recurrent TIA, migraines with neurology. Encouraged her to keep appointment and follow-up. At this time also complaining of vertigo. Due to concern regarding CVA requested additional assessment by MRI head. With headache as well, requested MRV. Requested tick panel. She is allergic to aspirin. Continue Plavix, statin. Assess additionally by echocardiogram with contrast. Discussed with her in case unrevealing, may sunil efit from additional assessment by SERGIO, property assessment monitor. She and her fianc? verbalized understanding. Telemetry monitoring in the hospital. PT, OT. Status: Acute (2) Headache: Possibly recurrence of migraine. As noted above possible hemiplegic migraine history. Follow-up with neurology. At this time does not have fever, leukocytosis, not toxic appearing. 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 No aphasia. 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 Denies recent recurrence. Continue chronic valacyclovir suppression. Rapid COVID-19 negative. Status: Acute (3) Chest pain: Complete troponin, EKG series. Monitor on telemetry. Discussed with her and her fianc? additional assessment with contrast TTE study. So far studies are not suggestive of acute [place]. Chest pain is atypical. No suggestion of PE, there is no respiratory complaint, she is saturating 98% on room air, no tachycardia. Status: Acute Additional A&P Information History of recurrent TIA Asthma COPD Sleep apnea: States awaits exchange of mask for her CPAP CKD DM2 with peripheral neuropathy HTN Migraine headaches Attestations Medical Necessity Statement*: Place in observation for additional assessment of possible CVA, headache, chest pain. Coding Level of Care Code Acute Assistant Professor Of Business for Jd Bellamy Diagnoses Focal neurological deficit R29.818 Headache R51.9 Chest pain R07.9
[2021-03-10 19:16] LABS: Troponin 5 6HR Delta 0 ng/L (0-12)
[2021-03-10] MEDS: acetaminophen 500 mg Tablet PO (21:11)
[2021-03-10 22:21] LABS: Glucose Point of Care 130 mg/dL (70-110)
[2021-03-10] MEDS: cetirizine 10 mg Tablet PO (23:07)
[2021-03-10] MEDS: clopidogrel 75 mg Tablet PO (23:07)
[2021-03-10] MEDS: enoxaparin 40 mg/0.4 mL Syringe SUBCUT (23:07)
[2021-03-10] MEDS: mirtazapine 15 mg Tablet PO (23:07)
[2021-03-10] MEDS: metoprolol tartrate 25 mg Tablet PO (23:08)
[2021-03-10] MEDS: gabapentin 300 mg Capsule 900 MG PO (23:08)
[2021-03-10] MEDS: atorvastatin 40 mg Tablet PO (23:08)
[2021-03-10] MEDS: duloxetine 60 mg Capsule 120 MG PO (23:08)
[2021-03-11] MEDS: sodium chloride 0.9% 1,000 ML 100 ML IV ×2 (01:21→13:24)
[2021-03-11 04:15] VITALS: BP 155/89; PULSE 69; RESP 18; TEMP 36.4; O2SAT 94
[2021-03-11 05:33] LABS: Glucose Point of Care 217 mg/dL (70-110)
[2021-03-11] MEDS: insulin glargine 100 units/1 mL 50 UNIT SUBCUT (05:45)
--- NOTE | 2021-03-11 05:47 | PC.NURSE ---
shift note patient rested with eyes closed since admitted and ate, chest pain subsided throughout the noc, denied radiating pain, neuro checks wnl
[2021-03-11 06:00] VITALS: PULSE 76
[2021-03-11 06:04] LABS: Basophils # 0.1 10^3/uL (0.0-0.1); Basophils % 1.1 %; Eosinophils # 0.4 10^3/uL (0.0-0.8); Eosinophils % 5.4 %; Hematocrit 46.6 % (37.0-47.0); Hemoglobin 15.3 g/dL (11.5-15.3); Lymphocytes % 27.5 %; Mean Corpuscular HGB Conc 32.8 g/dL (30.0-36.0); Mean Corpuscular Hemoglobin 29.9 pg (28.0-34.0); Mean Platelet Volume 9.9 fL (7.4-10.4); Monocytes # 0.6 10^3/uL (0.2-0.9); Monocytes % 7.8 %; Neutrophils # 4.27 10^3/uL (1.8-7.7); Neutrophils % 57.8 %; Nucleated Red Blood Cells % 0 %; Platelet Count 217 10^3/cmm (130-400); Red Blood Count 5.12 10^6/uL (4.1-5.3); Red Cell Distribution Width 12.4 % (12.1-15.1); White Blood Count 7.4 10^3/uL (4.0-10.0)
[2021-03-11 06:25] LABS: Alanine Aminotransferase 39 U/L (0-33); Albumin Level 3.9 g/dL (3.5-5.2); Alkaline Phosphatase 91 IU/L (35-105); Aspartate Amino Transferase 30 U/L (0-32); Blood Urea Nitrogen 11 mg/dL (6-20); Calcium 8.9 mg/dL (8.5-10.5); Carbon Dioxide 25 mmol/L (22-29); Chloride 104 mmol/L (98-107); Globulin 2.5 g/dL (1.3-4.6); Glucose 247 mg/dL (65-115); Osmolality Calculated 294 mOsm/kg (285-295); Sodium 138 mmol/L (136-145); Thyroid Stimulating Hormone 1.42 uIU/mL (0.27-4.20); Total Bilirubin 0.5 mg/dL (0.15-1.2); Total Protein 6.4 g/dL (6.6-8.7)
[2021-03-11 08:00] VITALS: BP 135/68; PULSE 76; RESP 17; TEMP 36.5; O2SAT 96
[2021-03-11] MEDS: montelukast sodium 10 mg Tablet PO (08:36)
[2021-03-11 09:07] VITALS: PULSE 74; RESP 16; O2SAT 94
--- NOTE | 2021-03-11 10:27 | PC.OT ---
5 MINUTES INTO O.T. EVALUATION, TRANSPORT CAME TO TAKE PATIENT TO MRI. WILL ATTEMPT EVALUATION AGAIN IN P.M.
--- NOTE | 2021-03-11 10:43 | PC.CHAP ---
Pastoral Care Encounter/Spiritual Assessment Type of Contact [] Declined spanisher visit [] Patient/Family/Request visit [] Outpatient visit [] Follow-up visit [] Physician referral [] Code/Alert [x] Routine visit [] Staff referral [] Actively dying [] Patient sleeping [] Family support [] [] Out of room [] Palliative care [] [] Receiving care in room [] Pre-surgical visit [] Trauma [] Long length of stay [] ICU visit [] Other: Relational/Emotional Strength [x] Patient feels connected with others/family/visitors/staff x[x] Distress [x] Loneliness/isolation [] Abandonment Spirituality of Patient [x] Person of Kristin [x] Attends Pentecostalism of their Kristin [x] Believes in Prayer [] Reads Bible or Jewish materials [] There are Spiritual issues to be addressed Cheese Specialist Interventions [x] Prayer x[] Active listening [] Non-anxious presence [x] Spiritual/emotional support [] Crisis/trauma care [x] Spiritual counseling [] Bereavement support [] Provided bereavement packet [] Provided Bible/devotional materials [] Provided toy/stuffed animal, coloring book to patient or family member [] Provided Communion [] Anointing/[place] [] Salvation []x Completed spiritual assessment [] Other: Impact on Illness or Injury [] Angry [] Fearful [] Anxious [] Often cries [] Exhaustion [] Unable to work [] Unable to attend christianity [] Unable to walk/stand [] Unable to read [] Unable to drive [] Unable to eat/drink [] Unable to sleep [] Unable to be with family [] Patient intubated [] Other: Summary Time spent with patient 16 min
[2021-03-11] MEDS: gadobenate dimeglumine 20 mL vial IV (10:45)
[2021-03-11 11:52] LABS: Glucose Point of Care 326 mg/dL (70-110)
[2021-03-11 12:00] VITALS: BP 147/88; PULSE 80; RESP 18; TEMP 36.9; O2SAT 98
--- NOTE | 2021-03-11 12:00 | MR_ITS ---
WS: [id number] MRI BRAIN WITH AND WITHOUT CONTRAST HISTORY: CVA COMPARISON: CT head 03/10/2021 TECHNIQUE: Multiplanar imaging performed through the brain with MultiHance 20 ml's IV. No acute infarcts are seen. Collins-white matter differentiation is well preserved. No susceptibility artifacts or prior lacunar infarcts. Ventricles and extra-axial spaces are normal. Clivus and pituitary gland are normal. Visualized posterior fossa and brainstem are also normal. Postcontrast images are negative for masses or vascular malformations. Dural venous sinuses are normal. Paranasal sinuses: Well aerated with no significant disease. Mastoid air cells: Normal. Calvarium and scalp: Normal. MR/MR head wo/w con [id number] IMPRESSION: 1. Normal MRI brain with contrast. 2. No acute infarct or abnormal enhancement.
--- NOTE | 2021-03-11 12:00 | MR_ITS ---
WS: [id number] MR VENOGRAPHY HEAD 3-D noncontrast imaging performed through the cerebral veins. All imaging is reviewed. HISTORY: focal abnormality, headache COMPARISON: None available. Excellent demonstration of the dural venous sinuses and cerebral veins. There are no filling defects to suggest acute or chronic thrombus. Superior sagittal sinus, straight sinus and transverse sinuses are all patent with no significant thrombus. RIGHT transverse sinus and sigmoid sinuses larger than the LEFT which is a normal variation. MR/[place] [id number] IMPRESSION: Normal MR venogram cerebral veins.
[2021-03-11] MEDS: acetaminophen 325 mg Tablet 650 MG PO (12:31)
--- NOTE | 2021-03-11 13:42 | P.DS_ITS ---
Discharge Providers Date of Admission: 03/10/21 15:51 Date of Discharge: March 11, 2021 Attending Provider at Admission: Severiano Bowser Attending Provider at Discharge: Severiano Bowser Primary Care Provider: Sandhya Yin NP Diagnoses at Discharge Discharge Diagnosis (1) Focal neurological deficit: Status: Acute (2) Headache: Status: Acute (3) Chest pain: Status: Acute Reason for Visit Reason for Visit: Chest pain, headache, weak in R side Hospital Course Hospital Course Pleasant 50-year-old lady with history of migraine headaches, recurrent TIA, DM2, HTN, morbid obesity, CKD, COPD, other comorbidities was admitted due to several days of feeling unwell, with a number of different symptoms including dizziness, with room spinning around her, right side diminished sensation, right-sided weakness, right-sided headache. Also noted chest pain on both sides of the chest. On presentation with noted persistent mild weakness on the right side, diminished sensation, possibly right side sensory neglect, although evaluation hindered by diabetic neuropathy, reported persistent vertigo. At presentation assessed by CT head which was unremarkable. CT angiogram head and neck showed no significant carotid stenosis, minimal plaque left ICA, unremarkable intracerebral arteries. Troponin series not suggestive of acute IL. She was continued on Plavix alone, with aspirin allergy, continued on statin. Was additionally assessed by head MRI, MRV given persistent neurological symptoms, headache. The studies were unremarkable, without finding of CVA. She otherwise has remained afebrile, without leukocytosis, nontoxic- appearing. No signs of acute infection. She has history of genital herpes, however, without recent recurrence. Is on chronic suppression with valacyclovir. No suggestion of herpes encephalitis. As she does have some exposure to ticks, tick panel has been requested, although tickborne illness suspicion is low as she has not found any ticks on her recently, and vital signs and laboratory parameters otherwise not suggestive of tickborne disease. The final results will need to be followed up. Previous echocardiogram with poor ultrasonic windows. Currently given recurrent TIAs obtained with contrast. Study interpretation is pending. Results will need to be followed up. As per discussion with her she would like to pursue additional evaluation with cardiac event monitoring which is being set up for her. She states will follow up results of the echocardiogram with primary provider and neurologist, and consideration may be given to SERGIO for closer evaluation given recurrent episodes. Her chest pain has resolved. She is additionally referred for evaluation by stress test due to risk factors of coronary disease. 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 She is cautioned that these may still increase her risk of CVA, in addition to the present risk factors, and in case of any symptoms that may suggest stroke she is urged to seek medical attention immediately. She and her fianc? verbalized understanding. She is encouraged to continue optimization of control of diabetes with her primary provider. Reports last A1c was 8.9, however, reports this is much better than prior A1c which was over 12. Physical Exam Const: COMMON NORMALS: no acute distress and patient oriented x3 NUTRITIONAL APPEARANCE: obese morbidly obese HENMT: COMMON NORMALS: oropharynx normal Neck/C-Spine: COMMON NORMALS: no meningeal signs and no JVD Resp: COMMON NORMALS: normal respiratory effort and clear to auscultation bilaterally AUSCULTATION: clear to auscultation bilaterally Cardio: COMMON NORMALS: no JVD, regular rhythm, S1 normal heart sound present, S2 normal heart sound present and No murmurs present (Cardio) RHYTHM: regular rhythm HEART SOUNDS: S1 normal heart sound present and S2 normal heart sound present GI: COMMON NORMALS: Normal to inspection, nondistended, normoactive bowel sounds present, Soft to palpation and non-tender PALPATION: Yes Soft to palpation Extremity: COMMON NORMALS: no joint enlargement and no pedal edema Neuro: COMMON NORMALS: patient oriented x3 and moves all extremities MENINGEAL SIGNS: Yes no meningeal signs COORDINATION/BALANCE: [id number] test normal SPEECH: speech normal SENSORY EXAM: Yes Normal double simultaneous stimulation for sensation MOTOR EXAM: 5/5 motor strength present throughout and Pronator motor function present (Mild R side) COORDINATION: [id number] test normal OTHER: No trouble tracking. Visual ramos full to confrontation. Skin: COMMON NORMALS: no rashes or lesions noted GENERAL SKIN EXAM: no rashes or lesions noted Discharge Data Data Completed and Pending: Completed Studies During Hospitalization Category Date Time Status CT angio headneck * 51365/[id number] Urge nt Cat Scan 03/10/21 12:[address] head wo con* 7 0450 Urgent Cat Scan 03/10/21 12:04 Completed XR chest 1V elsy ble [id number] Stat Exams 03/10/21 11:19 Completed MR head wo/w con [id number] Urgent MRI 03/11/21 12:00 [place] [id number] Urgent MRI 03/11/21 12:00 Completed Pending at discharge Category Date Time Status Blood Culture Sta t Lab 03/10/21 14:33 Results Tick Panel Routin e Lab 03/10/21 21:51 Received CV. echo wo/w con trast [id number] Routin e Ultrasound 03/11/21 21:51 Taken Labs from last 24 hours 03/11/21 03/11/21 03/11/21 11:35 05:45 05:45 WBC 7.4 RBC 5.12 Hgb 15.3 Hct 46.6 MCV 91.0 MCH 29.9 MCHC 32.8 RDW 12.4 Plt Count 217 MPV 9.9 Neut % (Auto) 57.8 Lymph % (Auto) 27.5 Gillespie % (Auto) 7.8 Eos % (Auto) 5.4 Baso % (Auto) 1.1 Neut # (Auto) 4.27 Lymph # (Auto) 2.0 Gillespie # (Auto) 0.6 Eos # (Auto) 0.4 Baso # (Auto) 0.1 Nucleated RBC % (a uto) 0 Nucleated RBCs # 0.0 Sodium 138 Potassium 4.0 Chloride 104 Carbon Dioxide 25 Anion Gap 13.0 BUN 11 Creatinine 0.9 GFR Calculation 66.0 L Glucose 247 H POC Glucose 326 H Calculated Osmolal ity 294 Calcium 8.9 Total Bilirubin 0.5 AST 30 ALT 39 H Alkaline Phosphata se 91 Troponin T 120 Min [place] Delta Troponin T Troponin T Hi Sens 6Hr Troponin T Hi Sens 6Hr Delta Total Protein 6.4 L Albumin 3.9 Globulin 2.5 TSH 1.42 Lyme Ab (Western B lot) E. chaffeensis IgG Ab E. chaffeensis IgM Ab E. chaffeensis Int erp E. chaffeensis Com ment Rickettsia IgG Ab Rickettsia IgM Ab SARS-CoV-2 Ag (Rap id) 03/11/21 03/11/21 03/10/21 05:45 05:31 22:18 WBC RBC Hgb Hct MCV MCH MCHC RDW Plt Count MPV Neut % (Auto) Lymph % (Auto) Gillespie % (Auto) Eos % (Auto) Baso % (Auto) Neut # (Auto) Lymph # (Auto) Gillespie # (Auto) Eos # (Auto) Baso # (Auto) Nucleated RBC % (a uto) Nucleated RBCs # Sodium Potassium Chloride Carbon Dioxide Anion Gap BUN Creatinine GFR Calculation Glucose POC Glucose 217 H 130 H Calculated Osmolal ity Calcium Total Bilirubin AST ALT Alkaline Phosphata se Troponin T 120 Min [place] Delta Troponin T Troponin T Hi Sens 6Hr Troponin T Hi Sens 6Hr Delta Total Protein Albumin Globulin TSH Lyme Ab (Western B lot) Pending E. chaffeensis IgG Ab Pending E. chaffeensis IgM Ab Pending E. chaffeensis Int erp Pending E. chaffeensis Com ment Pending Rickettsia IgG Ab Pending Rickettsia IgM Ab Pending SARS-CoV-2 Ag (Rap id) 03/10/21 03/10/21 03/10/21 18:40 14:30 13:23 WBC RBC Hgb Hct MCV MCH MCHC RDW Plt Count MPV Neut % (Auto) Lymph % (Auto) Gillespie % (Auto) Eos % (Auto) Baso % (Auto) Neut # (Auto) Lymph # (Auto) Gillespie # (Auto) Eos # (Auto) Baso # (Auto) Nucleated RBC % (a uto) Nucleated RBCs # Sodium Potassium Chloride Carbon Dioxide Anion Gap BUN Creatinine GFR Calculation Glucose POC Glucose Calculated Osmolal ity Calcium Total Bilirubin AST ALT Alkaline Phosphata se Troponin T 120 Min [place] 6.00 Delta Troponin T 0 Troponin T Hi Sens 6Hr 6.00 Troponin T Hi Sens 6Hr Delta 0 Total Protein Albumin Globulin TSH Lyme Ab (Western B lot) E. chaffeensis IgG Ab E. chaffeensis IgM Ab E. chaffeensis Int erp E. chaffeensis Com ment Rickettsia IgG Ab Rickettsia IgM Ab SARS-CoV-2 Ag (Rap id) Negative Vitals: Last Vital Signs Temp 98.4 F 03/11/21 12:00 Pulse 80 03/11/21 12:00 Resp 18 03/11/21 12:00 BP 147/88 03/11/21 12:00 Pulse Ox 98 03/11/21 12:00 Discharge Plan Discharge Patient Disposition: Home Condition: Stable Prescriptions: Continued albuterol sulfate 90 mcg/actuation HFA aerosol inhaler 1 puff inhalation Q4H PRN (Reason: Shortness Of Breath) RF: 0 ipratropium-albuterol 0.5 mg-3 mg(2.5 mg base)/3 mL solution for nebulization 3 ml inhalation QID PRN (Reason: Shortness Of Breath) RF: 0 Farxiga 10 mg tablet 10 mg PO BEDTIME RF: 0 ibuprofen 200 mg tablet 800 mg PO PRN RF: 0 promethazine 12.5 mg tablet 12.5 mg PO Q6H PRN (Reason: Nausea And Vomiting) RF: 0 hydroxyzine HCl 50 mg tablet 50 mg PO QID PRN (Reason: anxiety/insomnia) Qty: 120 RF: 2 cetirizine 10 mg Tablet 10 mg PO BEDTIME RF: 0 clopidogrel 75 mg Tablet 75 mg PO BEDTIME RF: 0 lisinopril 10 mg tablet 40 mg PO BEDTIME RF: 0 gabapentin 300 mg capsule 900 mg PO BEDTIME RF: 0 Victoza 3-Benedict 0.6 mg/0.1 mL (18 mg/3 mL) pen injector 1.8 mg SUBCUT QAM RF: 0 metoprolol tartrate 100 mg tablet 100 mg PO BEDTIME RF: 0 ondansetron 4 mg tablet,disintegrating 4 mg PO Q6H PRN (Reason: nausea and vomiting) Qty: 14 RF: 0 multivitamin Tablet 1 tab PO DAILY RF: 0 atorvastatin 40 mg tablet 40 mg PO BEDTIME RF: 0 insulin lispro 100 unit/mL insulin pen 25 unit SUBCUT .WITH EVERY MEAL RF: 0 Dulera 100-5 mcg/actuation HFA aerosol inhaler 2 puff INHALATION BID RF: 0 Lasix 40 mg tablet 40 mg PO QAM RF: 0 valacyclovir 1 gram tablet 1,000 mg PO QPM RF: 0 prazosin 5 mg capsule 10 mg PO BEDTIME RF: 0 Singulair 10 mg tablet 10 mg PO DAILY RF: 0 mirtazapine 15 mg tablet 15 mg PO BEDTIME RF: 0 duloxetine 60 mg capsule,delayed release(DR/EC) 120 mg PO BEDTIME RF: 0 Lantus Solostar U-100 Insulin 100 unit/mL (3 mL) insulin pen 60 unit SUBCUT QAM RF: 0 Spiriva Respimat 2.5 mcg/actuation mist 2 puff inhalation DAILY RF: 0 Rexulti 2 mg tablet 2 mg PO BEDTIME RF: 0 Discharge Orders: Discharge Order (Routine); Ordered 03/11/21 Ordered By: Severiano Bowser Other Ambulatory Orders: Sestamibi Stress Test Request (Routine) Timeframe: 1 Week Facility: [facility] - Location: Cardiac Diagnostic Laboratory Ordered By: Severiano BURNS cardiac event monitor (Routine) Timeframe: 1 Day Facility: [facility] - Location: Cardiac Diagnostic Laboratory Ordered By: Severiano Bowser Referrals: Irlanda Johnson MD [Physician] - 1 week (TIAs, also migraines) Sandhya Yin NP [Primary Care Provider] - Discharge Diet: Cardiac and Diabetic Discharge Activity: Limit activity as instructed and As per PT/OT instructions Patient Instructions: Transient Ischemic Attack (GEN), Migraine Headache (GEN), Diabetes Mellitus Type 2 in Adults (GEN), Chronic Hypertension (GEN) Activity Restrictions/Additional Instructions: Please follow-up with neurology regarding recurrent TIAs. No stroke is noted on MRI. Symptoms may also be related to recurrent migraines, possibly hemiplegic migraine episodes. Please note these may increase your risk of stroke long- term. In case of any symptoms that may suggest stroke with numbness, weakness, trouble speaking, trouble seeing, facial droop, or any other concerning symptoms, please seek medical attention immediately since this may still represent an actual stroke. Please follow-up for cardiac monitoring. Please discuss with neurology in office regarding consideration of additional assessment by transesophageal echocardiography. Please note that echocardiogram results obtained during her admission are still pending. Please discuss with your primary provider, neurologist regarding the results. Please follow-up with stress testing next week. Please note that take borne illness suspicion is low, however, tick panel had been obtained and is pending. Please follow-up tick panel results with your primary doctor. Please follow-up with your primary doctor to continue optimize diabetes control. Discharge Attestations Time Spent in Discharge Care*: greater than 30 min Quality Metrics Clinical Quality Measures During this hospital stay, did patient experience: None Coding Level of Care Code Acute Chg FW DC note Diagnoses Focal neurological deficit R29.818 Headache R51.9 Chest pain R07.9
--- NOTE | 2021-03-11 14:22 | PC.SOCIAL ---
Called by Dr Bowser to see how we should order a outpatient rooming house keeper/ nutrition consult. Per Kandy can put in as inpatient order and in comments indicate follow up as outpatient this would work best. Notified Dr Bowser.
--- NOTE | 2021-03-11 15:21 | PC.NUTR ---
Nutrition consult received for outpatient diabetes education. Have notified Nathen Munoz RD, ESPINOZA (outpatient dietitian) of order via email.
[2021-03-11 16:23] VITALS: BP 147/88; PULSE 80; RESP 18; TEMP 36.9; O2SAT 98
--- NOTE | 2021-03-11 21:51 | USCV_ITS ---
Vanesa Ignacio Age: 50 Gender: F : 1970 Exam Date: 03/11/2021 07:43 Ordering Phys: Severiano Bowser MD Technologist: Exam [place] [facility] [place]ication: SOB CP BP: 149 / 83 HR: 72 Rhythm: Sinus Technical Quality: Suboptimal MEASUREMENTS (Male / Female) Normal Values 2D ECHO LV Diastolic Diameter PLAX 2.6 cm 4.2 - 5.9 / 3.9 - 5.3 cm LV Systolic Diameter PLAX 2.2 cm IVS Diastolic Thickness 1.0 cm 0.6 - 1.0 / 0.6 - 0.9 cm IVS Systolic Thickness 1.4 cm LVPW Diastolic Thickness 1.3 cm 0.6 - 1.0 / 0.6 - 0.9 cm LVPW Systolic Thickness 1.6 cm LVOT Diameter 2.0 cm LV Ejection Fraction 2D Teich 19.3 % LV Ejection Fraction MOD 2C 50.6 % LV Ejection Fraction 2C AL 50.3 % LA Diameter 3.4 cm DOPPLER AV Peak Velocity 115.0 cm/s LVOT Peak Velocity 87.0 cm/s AV Area Cont Eq vti 2.9 cm squared AV Area Cont Eq pk 2.4 cm squared MV Area PHT 5.0 cm squared Mitral E to A Ratio 1.1 MV E' Velocity 75.0 cm/s TR Peak Velocity 128.7 cm/s TR Peak Gradient 6.6 mmHg TV Peak E Velocity 103.0 cm/s Right Atrial Pressure 3.0 mmHg Pulmonary Artery Systolic Pressu 9.6 mmHg FINDINGS Left Ventricle Normal left ventricular size. LV systolic function is normal with EF of 60-65%. No regional wall motion abnormalities. Diastolic function is indeterminate Right Ventricle The right ventricle is normal in size and function. Right Atrium Not well visualized Left Atrium Not well visualized Mitral Valve Grossly normal without significant stenosis or prolapse. There is no mitral regurgitation. Aortic Valve Not well visualized. No significant stenosis. There is no aortic regurgitation. Tricuspid Valve Not well visualized. No significant stenosis or regurgitation. Insufficient TR jet to calculate RVSP Pulmonic Valve Not well visualized Pericardium Normal pericardium without effusion. Aorta Normal ascending aorta dimension. CONCLUSIONS Technically limited quality study because of poor ultrasonic windows. LV systolic function is normal with EF of 55-60% Diastolic function is indeterminate Valves are not well visualized but no gross abnormlities Compared to prior echocardiogram from 12/08/2020, no significant changes are seen Noah Taylor MD (Electronically Signed) Final Date: 11 March 2021 14:17 S
[2021-03-12 14:41] LABS: Lyme AB Screen <0.90 index
[2021-03-14 17:17] LABS: RMSF IGG NOT DETECTED; RMSF IGM NOT DETECTED
[2021-03-14 21:11] LABS: E. Chaffeensis AB IGG <1:64; E. Chaffeensis AB IGM <1:20
== END 2021-03-11 15:30 | disposition home or self-care (01) ==
LOC: ER 12:50 → MEDSURG 19:55
PROVIDERS: Physician Assistant; Admitting Provider Internal Medicine; Emergency Provider Emergency Medicine; PCP Nurse Practitioner Family; Visit Provider Internal Medicine
DX: R29.818 Other symptoms and signs involving the nervous system (principal); R51.9 Headache, unspecified; R07.9 Chest pain, unspecified; Z86.73 Personal history of transient ischemic attack (TIA), and cerebral infarction without residual deficits; E66.01 Morbid (severe) obesity due to excess calories; Z68.42 Body mass index [BMI] 45.0-49.9, adult; E11.42 Type 2 diabetes mellitus with diabetic polyneuropathy; J44.9 Chronic obstructive pulmonary disease, unspecified; E11.22 Type 2 diabetes mellitus with diabetic chronic kidney disease; I12.9 Hypertensive chronic kidney disease with stage 1 through stage 4 chronic kidney disease, or unspecified chronic kidney disease; N18.9 Chronic kidney disease, unspecified; Z79.4 Long term (current) use of insulin; F17.210 Nicotine dependence, cigarettes, uncomplicated; G47.30 Sleep apnea, unspecified
CPT/HCPCS: 36415; 36416; 70450; 70496; 70498; 70544; 70553; 71045; 80053; 82962; 83880; 84443; 84484; 85025; 86618; 86666; 86757; 87040; 87426; 93005; 94640; 96360; 96361; 96372; 97161; 97165; 99285; A9577; C8929; G0378; J1650; J1815 ×2; J7030; J7040; Q9967

== ENCOUNTER 2021-03-14 17:41 | Emergency (ER) | payer MEDICAID, SELFPAY ==
[2021-03-14 18:05] VITALS: BP 131/77; PULSE 80; RESP 18; TEMP 37; O2SAT 97; BMI 45.2
--- NOTE | 2021-03-14 19:46 | ECG_ITS ---
[facility] ED Test Date: 2021-03-14 Pat Name: Vanesa Ignacio Department: Room: Gender: Female Senior Manufacturing Supervisor: : 1970 Requested By: Demetrius Greenberg Order Number: [id number] Mi MD: Rose Chan M.D. Measurements Intervals [place] Rate: 67 P: 54 WV: 150 QRS: 38 QRSD: 85 T: 23 QT: 404 QTc: 427 Interpretive Statements SINUS RHYTHM Compared to ECG 03/10/2021 19:19:11 T-wave abnormality no longer present Electronically Signed On 03-19-2021 10:06:49 CDT by Rose Chan M.D. [id number]
[2021-03-14 19:57] LABS: Basophils # 0.1 10^3/uL (0.0-0.1); Eosinophils # 0.5 10^3/uL (0.0-0.8); Eosinophils % 5.3 %; Hematocrit 46.3 % (37.0-47.0); Hemoglobin 14.9 g/dL (11.5-15.3); Lymphocytes # 2.5 10^3/uL (0.8-4.8); Lymphocytes % 27.1 %; Mean Corpuscular HGB Conc 32.2 g/dL (30.0-36.0); Mean Corpuscular Hemoglobin 29.8 pg (28.0-34.0); Mean Corpuscular Volume 92.6 fL (81-99); Mean Platelet Volume 10.1 fL (7.4-10.4); Monocytes # 0.7 10^3/uL (0.2-0.9); Monocytes % 7.9 %; Neutrophils # 5.27 10^3/uL (1.8-7.7); Neutrophils % 58.3 %; Nucleated Red Blood Cells % 0 %; Platelet Count 233 10^3/cmm (130-400); Red Cell Distribution Width 12.3 % (12.1-15.1)
[2021-03-14 20:14] LABS: Alanine Aminotransferase 33 U/L (0-33); Albumin Level 4.3 g/dL (3.5-5.2); Alkaline Phosphatase 86 IU/L (35-105); Anion Gap 15.4 (5-19); Aspartate Amino Transferase 25 U/L (0-32); Blood Urea Nitrogen 14 mg/dL (6-20); Calcium 9.8 mg/dL (8.5-10.5); Carbon Dioxide 28 mmol/L (22-29); Chloride 102 mmol/L (98-107); Globulin 2.3 g/dL (1.3-4.6); Glomerular Filtration Rate 58.5 mL/min (90-130); Glucose 125 mg/dL (65-115); Lipase 28 U/L (13-60); Osmolality Calculated 294 mOsm/kg (285-295); Potassium 4.4 mmol/L (3.5-5.1); Sodium 141 mmol/L (136-145); Total Bilirubin 0.4 mg/dL (0.15-1.2); Total Protein 6.6 g/dL (6.6-8.7)
[2021-03-14 20:31] VITALS: BP 121/75; PULSE 71; RESP 18; O2SAT 98
[2021-03-14 20:35] LABS: Troponin(5th) Baseline 6 ng/L (0-10)
[2021-03-14 20:36] VITALS: RESP 12; TEMP 36.7
--- NOTE | 2021-03-14 20:53 | W.ED.CHESTPA ---
HPI - Chest Pain General: Chief Complaint: Chest Pain Stated Complaint: CHEST PAIN/NAUSEA Time Seen by Provider: 03/14/21 20:37 History of Present Illness: HPI narrative: Patient is a 50-year-old female with a very long past medical history. She is here with chest pain. She states that pain started this afternoon while she was at rest is located just above her left breast. Does not radiate has been constant has been sharp. Is worse with direct palpation and movement not any worse with exercise not accompanied by nausea vomiting or diaphoresis. She was seen Tuesday with similar symptoms did not have any elevation of troponin or change in EKGs. She has had having similar symptoms to that. No shortness of breath Denies fevers chills shortness of breath nausea vomiting diarrhea altered mental status syncope behavioral changes or rash Review of Systems General: Reports: 10 or more systems reviewed and unremarkable except in HPI and below PFSH ED PFSH: Medical History Asthma CKD (chronic kidney disease) COPD (chronic obstructive pulmonary disease) Depression DM type 2 (diabetes mellitus, type 2) Hypertension Migraines Neuropathy TIA (transient ischemic attack) Surgical History History of cholecystectomy History of tubal ligation Family History Mother Cancer Stage 4 kidney cancer Chronic kidney disease (CKD) Diabetes Hypertension Grandmother Cancer Maternal-Lung cancer Family/Other Cancer Maternal Aunt--Unknown Father Chronic kidney disease (CKD) Diabetes Hyperlipidemia Hypertension Daughter Diabetes Grandfather Stroke Maternal Denies family history of Ovarian cyst Anesthesia complication Bleeding disorder Thyroid disease Social History Smoking and tobacco status: current every day smoker cigarettes Years cigarettes smoked: 3 [ Other cigarette details: Hx o 2 PPD x 2 Years ] Second hand smoke exposure: Yes Smoking risk assessment/counseling performed?: Yes Alcohol intake: current Alcohol intake frequency: holidays/special occasions only Counseling given: No Counseling given: No Lives independently: Yes Household members: significant other Marital status: Life Partner Current occupational status: disabled History of recent travel: No Current gender identity: Female Physical Exam Const: COMMON NORMALS: no acute distress, average body habitus, patient oriented x3, no limitations, healthy appearing and well nourished HENMT: COMMON NORMALS: normocephalic and atraumatic HEAD & SCALP: normocephalic and atraumatic Chest: CHEST: Yes localized rib tenderness with anteroposterior compression (Pain over the sixth and seventh rib anterior chest at the point where she i) Resp: COMMON NORMALS: normal respiratory effort and clear to auscultation bilaterally AUSCULTATION: clear to auscultation bilaterally Cardio: COMMON NORMALS: regular rate and regular rhythm RATE: regular rate RHYTHM: regular rhythm GI: COMMON NORMALS: Normal to inspection, nondistended, normoactive bowel sounds present, Soft to palpation and non-tender PALPATION: Yes Soft to palpation Extremity: COMMON NORMALS: normal to inspection and full ROM Neuro: COMMON NORMALS: patient oriented x3 Psych: COMMON NORMALS: mental status grossly normal and Normal thought process present THOUGHT PROCESS: Normal thought process present Course Vital Signs: Vital signs: Vital Signs Temperature 98.1 F 03/14/21 20:36 Pulse Rate 71 03/14/21 20:31 Respiratory Rate 12 03/14/21 20:36 Blood Pressure 121/75 03/14/21 20:31 Pulse Oximetry 98 03/14/21 20:31 MDM - Chest Pain MDM Narrative: Medical decision making narrative: Patient is a 50-year-old female here with chest pain. Pain is reproducible with palpation of the anterior chest. It matches up completely with the complaint she has had. She was worked up extensively on Tuesday for similar symptoms and was not found to be in ACS or have any other cardiac involvement. EKG shows normal sinus rhythm. Feel this is very clearly costochondritis. She did have normal troponins normal about lab values here at this point I am very sure this is not ACS pneumonia or any other serious cause of chest pain. Did have a long conversation with her about what costochondritis is what she can do to help it and when to seek further care. At this point I feel she is appropriate for discharge [place] includes costochondritis, ACS, pleurisy Lab Data: Labs: Lab Results 03/14/21 03/14/21 03/14/21 Range/Units 19:40 19:40 19:40 WBC 9.0 (4.0-10.0) 10^3/ uL RBC 5.00 (4.1-5.3) 10^6/u L Hgb 14.9 (11.5-15.3) g/dL Hct 46.3 (37.0-47.0) % MCV 92.6 (81-99) fL MCH 29.8 (28.0-34.0) pg MCHC 32.2 (30.0-36.0) g/dL RDW 12.3 (12.1-15.1) % Plt Count 233 (130-400) 10^3/c mm MPV 10.1 (7.4-10.4) fL Neut % (Auto) 58.3 % Lymph % (Auto) 27.1 % [place] % (Auto) 7.9 % Eos % (Auto) 5.3 % Baso % (Auto) 1.0 % Neut # (Auto) 5.27 (1.8-7.7) 10^3/u L Lymph # (Auto) 2.5 (0.8-4.8) 10^3/u L [place] # (Auto) 0.7 (0.2-0.9) 10^3/u L Eos # (Auto) 0.5 (0.0-0.8) 10^3/u L Baso # (Auto) 0.1 (0.0-0.1) 10^3/u L Nucleated RBC % (a uto) 0 % Nucleated RBCs # 0.0 /100WBC Sodium 141 (136-145) mmol/L Potassium 4.4 (3.5-5.1) mmol/L Chloride 102 (98-107) mmol/L Carbon Dioxide 28 (22-29) mmol/L Anion Gap 15.4 (5-19) BUN 14 (6-20) mg/dL Creatinine 1.0 H (0.5-0.9) mg/dL GFR Calculation 58.5 L (90-130) mL/min Glucose 125 H (65-115) mg/dL Calculated Osmolal ity 294 (285-295) mOsm/k g Calcium 9.8 (8.5-10.5) mg/dL Total Bilirubin 0.4 (0.15-1.2) mg/dL AST 25 (0-32) U/L ALT 33 (0-33) U/L Alkaline Phosphata se 86 (35-105) IU/L Troponin T Baselin e 6 (0-10) ng/L Total Protein 6.6 (6.6-8.7) g/dL Albumin 4.3 (3.5-5.2) g/dL Globulin 2.3 (1.3-4.6) g/dL Lipase 28 (13-60) U/L EKG Data^: EKG 1: Attestation: I personally reviewed and interpreted this EKG as follows: EKG interpretation date: 03/14/21 EKG interpretation time: 20:58 Prior EKG tracings: available for review Interpretation: Normal sinus rhythm no evidence of ischemia or infarct no T wave changes inversions or elevations. [place] normal IN and QTC intervals normal Discharge Plan Discharge Patient Disposition: Home Clinical Impression: Costochondritis Condition: Stable Prescriptions: No Action albuterol sulfate 90 mcg/actuation HFA aerosol inhaler 1 puff inhalation Q4H PRN (Reason: Shortness Of Breath) RF: 0 ipratropium-albuterol 0.5 mg-3 mg(2.5 mg base)/3 mL solution for nebulization 3 ml inhalation QID PRN (Reason: Shortness Of Breath) RF: 0 Farxiga 10 mg tablet 10 mg PO BEDTIME RF: 0 ibuprofen 200 mg tablet 800 mg PO PRN RF: 0 promethazine 12.5 mg tablet 12.5 mg PO Q6H PRN (Reason: Nausea And Vomiting) RF: 0 hydroxyzine HCl 50 mg tablet 50 mg PO QID PRN (Reason: anxiety/insomnia) Qty: 120 RF: 2 cetirizine 10 mg Tablet 10 mg PO BEDTIME RF: 0 clopidogrel 75 mg Tablet 75 mg PO BEDTIME RF: 0 lisinopril 10 mg tablet 40 mg PO BEDTIME RF: 0 gabapentin 300 mg capsule 900 mg PO BEDTIME RF: 0 Victoza 3-Benedict 0.6 mg/0.1 mL (18 mg/3 mL) pen injector 1.8 mg SUBCUT QAM RF: 0 metoprolol tartrate 100 mg tablet 100 mg PO BEDTIME RF: 0 ondansetron 4 mg tablet,disintegrating 4 mg PO Q6H PRN (Reason: nausea and vomiting) Qty: 14 RF: 0 multivitamin Tablet 1 tab PO DAILY RF: 0 atorvastatin 40 mg tablet 40 mg PO BEDTIME RF: 0 insulin lispro 100 unit/mL insulin pen 25 unit SUBCUT .WITH EVERY MEAL RF: 0 Dulera 100-5 mcg/actuation HFA aerosol inhaler 2 puff INHALATION BID RF: 0 Lasix 40 mg tablet 40 mg PO QAM RF: 0 valacyclovir 1 gram tablet 1,000 mg PO QPM RF: 0 prazosin 5 mg capsule 10 mg PO BEDTIME RF: 0 Singulair 10 mg tablet 10 mg PO DAILY RF: 0 mirtazapine 15 mg tablet 15 mg PO BEDTIME RF: 0 duloxetine 60 mg capsule,delayed release(DR/EC) 120 mg PO BEDTIME RF: 0 Lantus Solostar U-100 Insulin 100 unit/mL (3 mL) insulin pen 60 unit SUBCUT QAM RF: 0 Spiriva Respimat 2.5 mcg/actuation mist 2 puff inhalation DAILY RF: 0 Rexulti 2 mg tablet 2 mg PO BEDTIME RF: 0 Discharge Orders: Discharge ED (Routine); Ordered 03/14/21 Ordered By: Jeremy Berrios Referrals: Sandhya Yin NP [Primary Care Provider] - Discharge Activity: Resume usual activity Patient Instructions: Chest Pain - Chest Wall, Costochondritis (ED), Opioid Safety Activity Restrictions/Additional Instructions: Use a pain cream such as Voltaren or Aspercreme. Follow-up with your primary care provider as scheduled on Tuesday. Return to the emergency department for any new or worsening symptoms Coding Level of Care Code ED Extracorporeal Circulation Specialist for Jd Fwwilliam Exam Comprehensive
[2021-03-14 21:25] LABS: NT Pro B Type Natriuretic Pept 156 pg/mL (0-125)
[2021-03-14 21:35] LABS: Add Urine Microscopic? YES; Bilirubin Urine Neg (Negative); Blood Urine Neg (Negative); Glucose Urine UA 4+ (Normal); Ketones Urine Negative (Negative); Leukocyte Esterase Urine 2+ (Negative); Nitrate Urine Positive (Negative); Protein Urine Neg (Negative); Urine Color Yellow (Yellow); Urobilinogen Urine Norm (Negative); pH Urine 5 (5-7)
[2021-03-14 21:37] LABS: Add Urine Culture? No; Bacteria Urine 2+ /hpf; RBC Urine 0-4 /hpf (0-2); Squamous Epithelial Cell Urine 25-40 /hpf (0-5); WBC Urine >100 /hpf (0-5)
== END 2021-03-14 21:00 | disposition home or self-care (01) ==
PROVIDERS: Nurse Practitioner Family; Emergency Provider Family Medicine; PCP Nurse Practitioner Family
DX: M94.0 Chondrocostal junction syndrome [Tietze] (principal); Z79.02 Long term (current) use of antithrombotics/antiplatelets; Z79.4 Long term (current) use of insulin; J44.9 Chronic obstructive pulmonary disease, unspecified; I10 Essential (primary) hypertension; Z86.73 Personal history of transient ischemic attack (TIA), and cerebral infarction without residual deficits; E11.40 Type 2 diabetes mellitus with diabetic neuropathy, unspecified; F17.210 Nicotine dependence, cigarettes, uncomplicated
CPT/HCPCS: 80053; 81001; 83690; 83735; 83880; 84484; 85025; 93005; 99283

== ENCOUNTER 2021-03-18 11:00 | Emergency (ER) | payer MEDICAID, SELFPAY ==
[2021-03-18] VITALS (7 sets, daily range): BP systolic 128–175; BP diastolic 72–107; PULSE 100–112; RESP 16–31; TEMP 37.8; O2SAT 96–99; BMI 45.2
--- NOTE | 2021-03-18 11:44 | CT_ITS ---
WS: [id number] CT ABDOMEN PELVIS TECHNIQUE: Contrast-enhanced CT of the abdomen and pelvis with coronal and sagittal reformatted image s. CLINICAL INFORMATION: abd pain COMPARISON: None. DLP: 1963.[address] scans at [facility] use at least one of these dose optimization techniques: automat ed exposure control; mA and/or kV adjustment per patient size (includes targeted exams where dose is matched to clinical indication); or iterative reconstruction. FINDINGS: Hepatomegaly. Diffuse fatty infiltration liver. Cholecystectomy clips. Splenomegaly. Normal GE juncti on. Mild fatty atrophy of the pancreas. Lung bases are well aerated. Normal renal parenchymal enhance ment. Mild renal cortical atrophy. Normal caliber abdominal aorta. Normal sigmoid colon. No evidence of high-grade small or large bowel obstruction. Normal appendix the right lower quadrant. Tiny fat-containing umbilical hernia. No abdom inal or pelvic lymphadenopathy. No inguinal lymphadenopathy. Disc space narrowing in the lower lumbar spine. Heterogeneous enhancing fibroid uterus. CT/CT abdomen pelvis w con* [id number] IMPRESSION: 1. Hepatomegaly with diffuse fatty infiltration. 2. Splenomegaly. 3. Normal caliber abdominal aorta. 4. No hydronephrosis in either kidney. Normal renal parenchymal enhancement. 5. Normal sigmoid colon. No evidence of high-grade small or large bowel obstru ction. 6. Heterogeneous enhancing fibroid uterus. This can be followed up with ultras ound. 7. No free fluid in the abdomen or pelvis.
--- NOTE | 2021-03-18 12:06 | W.ED.ABDPA2 ---
HPI - Abdominal Pain General: Chief Complaint: Abdominal Pain Stated Complaint: ABD PAIN, LOW GRADE FEVER Time Seen by Provider: 03/18/21 11:40 History of Present Illness: HPI narrative: 51-year-old female who reports abdominal pain for the last week. Initially began periumbilical migrated to the right lower quadrant. She has had nausea with dry heaving she denies any hematochezia or melena no dysuria urgency or frequency she has not found anything particularly relieves it other than remaining very still. She has had loss of appetite and moderate bloating. No other recent illness previous surgeries include tubal ligation and cholecystectomy several years ago MD elicited complaint: abdominal pain Pertinent past history: none Pain Consistency: constant Location: Periumbilical Severity: severe Quality: cramping Radiation: RLQ Migration to: RLQ Exacerbating factors: eating Relieving factors: rest Associated Symptoms: Reports anorexia, bloating, GI cramping, nausea, poor appetite and vomiting; Denies belching, change in bowel habits, change in stool character, chills, coffee ground emesis, constipation, diarrhea, dyspepsia, dysuria, excessive flatus, fever(s), heartburn, hematochezia, hematuria, hematemesis, fecal incontinence, loose stools, melena and syncope Review of Systems Const: Denies: fever(s) or chills ENMT: Denies: throat pain, ear or mastoid pain, nasal discharge or nasal congestion Card: Denies: syncope Resp: Denies: dyspnea, productive cough or non-productive cough GI: Reports: nausea, vomiting, bloating and GI cramping; Denies: hematemesis, coffee ground emesis, heartburn, diarrhea, constipation, belching, excessive flatus, fecal incontinence, change in bowel habits, change in stool character, hematochezia or melena : Denies: dysuria or hematuria Skin/Breast: Denies: rash or pruritus PFSH ED PFSH: Medical History Asthma CKD (chronic kidney disease) COPD (chronic obstructive pulmonary disease) Depression DM type 2 (diabetes mellitus, type 2) Hypertension Migraines Neuropathy TIA (transient ischemic attack) Surgical History History of cholecystectomy History of tubal ligation Family History Mother Cancer Stage 4 kidney cancer Chronic kidney disease (CKD) Diabetes Hypertension Grandmother Cancer Maternal-Lung cancer Family/Other Cancer Maternal Aunt--Unknown Father Chronic kidney disease (CKD) Diabetes Hyperlipidemia Hypertension Daughter Diabetes Grandfather Stroke Maternal Denies family history of Ovarian cyst Anesthesia complication Bleeding disorder Thyroid disease Social History Smoking and tobacco status: current every day smoker cigarettes Years cigarettes smoked: 3 [ Other cigarette details: Hx o 2 PPD x 2 Years ] Second hand smoke exposure: Yes Smoking risk assessment/counseling performed?: Yes Alcohol intake: current Alcohol intake frequency: holidays/special occasions only Counseling given: No Counseling given: No Lives independently: Yes Household members: significant other Marital status: Life Partner Current occupational status: disabled History of recent travel: No Current gender identity: Female Physical Exam Const: COMMON NORMALS: no acute distress GENERAL APPEARANCE: cooperative and comfortable ORIENTATION/CONSCIOUSNESS: Yes awake, Yes oriented to person, Yes oriented to place and Yes oriented to time HENMT: COMMON NORMALS: normocephalic, atraumatic and hearing grossly normal bilaterally HEAD & SCALP: normocephalic and atraumatic Neck/C-Spine: COMMON NORMALS: no JVD Resp: COMMON NORMALS: normal respiratory effort, No retractions, No use of accessory muscles and clear to auscultation bilaterally AUSCULTATION: clear to auscultation bilaterally Cardio: COMMON NORMALS: no JVD, regular rate, regular rhythm and No murmurs present (Cardio) RATE: regular rate RHYTHM: regular rhythm GI: COMMON NORMALS: No hepatosplenomegaly present PALPATION: Yes Tenderness to palpation present (GI) Details: RLQ, Yes Guarding due to palpation present (GI) in the RLQ and Yes No hepatosplenomegaly present Extremity: COMMON NORMALS: normal to inspection, capillary refill normal, no clubbing, cyanosis or edema, no calf tenderness and no pedal edema Neuro: SENSORIUM/ORIENTATION: Yes oriented to person, Yes oriented to place and Yes oriented to time Skin: COMMON NORMALS: no rashes or lesions noted GENERAL SKIN EXAM: no rashes or lesions noted Course Vital Signs: Vital signs: Vital Signs Temperature 100.0 F H 03/18/21 12:03 Pulse Rate 112 H 03/18/21 17:11 Respiratory Rate 29 H 03/18/21 17:11 Blood Pressure 159/72 03/18/21 17:11 Pulse Oximetry 97 03/18/21 17:11 MDM - Abdominal Pain MDM Narrative: Medical decision making narrative: Reviewed labs and imaging with the patient. Where to go ahead and discharge her home she has no elevation of white count CT is negative. She has low-grade fever she does have a uterine fibroid that may be the cause of her discomfort raises be a nonspecific GI issue. Also concerned about Covid as many times it does percent with GI symptoms. Written discharge her home with Zofran hydrocodone and diclofenac if not improving he is return to the emergency room or follow-up with primary care. Lab Data: Labs: Lab Results 03/18/21 03/18/21 03/18/21 Range/Units 12:23 12:35 12:35 WBC 7.9 (4.0-10.0) 10^3/ uL RBC 4.70 (4.1-5.3) 10^6/u L Hgb 14.1 (11.5-15.3) g/dL Hct 42.8 (37.0-47.0) % MCV 91.1 (81-99) fL MCH 30.0 (28.0-34.0) pg MCHC 32.9 (30.0-36.0) g/dL RDW 12.3 (12.1-15.1) % Plt Count 162 (130-400) 10^3/c mm MPV 10.0 (7.4-10.4) fL Neut % (Auto) 80.7 % Lymph % (Auto) 9.6 % [place] % (Auto) 7.8 % Eos % (Auto) 0.9 % Baso % (Auto) 0.5 % Neut # (Auto) 6.41 (1.8-7.7) 10^3/u L Lymph # (Auto) 0.8 (0.8-4.8) 10^3/u L [place] # (Auto) 0.6 (0.2-0.9) 10^3/u L Eos # (Auto) 0.1 (0.0-0.8) 10^3/u L Baso # (Auto) 0.0 (0.0-0.1) 10^3/u L Nucleated RBC % (a uto) 0 % Nucleated RBCs # 0.0 /100WBC Sodium 133 L (136-145) mmol/L Potassium 4.5 (3.5-5.1) mmol/L Chloride 96 L (98-107) mmol/L Carbon Dioxide 25 (22-29) mmol/L Anion Gap 16.5 (5-19) BUN 10 (6-20) mg/dL Creatinine 1.0 H (0.5-0.9) mg/dL GFR Calculation 58.2 L (90-130) mL/min Glucose 264 H (65-115) mg/dL Calculated Osmolal ity 284 L (285-295) mOsm/k g Calcium 8.7 (8.5-10.5) mg/dL Total Bilirubin 1.0 (0.15-1.2) mg/dL AST 19 (0-32) U/L ALT 25 (0-33) U/L Alkaline Phosphata se 102 (35-105) IU/L Total Protein 6.1 L (6.6-8.7) g/dL Albumin 4.0 (3.5-5.2) g/dL Globulin 2.1 (1.3-4.6) g/dL Lipase 22 (13-60) U/L Urine Color Straw (Yellow) Urine Appearance Clear (CLEAR) Urine pH 5 (5-7) Ur Specific Gravit y 1.005 (1.005-1.030) Urine Protein Neg (Negative) Urine Glucose (UA) 4+ H (Normal) Urine Ketones Negative (Negative) Urine Blood Neg (Negative) Urine Nitrate Negative (Negative) Urine Bilirubin Neg (Negative) Urine Urobilinogen Norm (Negative) mg/dL Ur Leukocyte Dulce ase Negative (Negative) SARS-CoV-2 Ag (Rap id) (Negative) 03/18/21 Range/Units 15:37 WBC (4.0-10.0) 10^3/ uL RBC (4.1-5.3) 10^6/u L Hgb (11.5-15.3) g/dL Hct (37.0-47.0) % MCV (81-99) fL MCH (28.0-34.0) pg MCHC (30.0-36.0) g/dL RDW (12.1-15.1) % Plt Count (130-400) 10^3/c mm MPV (7.4-10.4) fL Neut % (Auto) % Lymph % (Auto) % [place] % (Auto) % Eos % (Auto) % Baso % (Auto) % Neut # (Auto) (1.8-7.7) 10^3/u L Lymph # (Auto) (0.8-4.8) 10^3/u L [place] # (Auto) (0.2-0.9) 10^3/u L Eos # (Auto) (0.0-0.8) 10^3/u L Baso # (Auto) (0.0-0.1) 10^3/u L Nucleated RBC % (a uto) % Nucleated RBCs # /100WBC Sodium (136-145) mmol/L Potassium (3.5-5.1) mmol/L Chloride (98-107) mmol/L Carbon Dioxide (22-29) mmol/L Anion Gap (5-19) BUN (6-20) mg/dL Creatinine (0.5-0.9) mg/dL GFR Calculation (90-130) mL/min Glucose (65-115) mg/dL Calculated Osmolal ity (285-295) mOsm/k g Calcium (8.5-10.5) mg/dL Total Bilirubin (0.15-1.2) mg/dL AST (0-32) U/L ALT (0-33) U/L Alkaline Phosphata se (35-105) IU/L Total Protein (6.6-8.7) g/dL Albumin (3.5-5.2) g/dL Globulin (1.3-4.6) g/dL Lipase (13-60) U/L Urine Color (Yellow) Urine Appearance (CLEAR) Urine pH (5-7) Ur Specific Gravit y (1.005-1.030) Urine Protein (Negative) Urine Glucose (UA) (Normal) Urine Ketones (Negative) Urine Blood (Negative) Urine Nitrate (Negative) Urine Bilirubin (Negative) Urine Urobilinogen (Negative) mg/dL Ur Leukocyte Dulce ase (Negative) SARS-CoV-2 Ag (Rap id) Negative (Negative) Discharge Plan Discharge Patient Disposition: Home Clinical Impression: Abdominal pain Condition: Stable Prescriptions: New hydrocodone-acetaminophen 5-325 mg tablet 1 tab PO Q6H PRN (Reason: pain) Qty: 25 RF: 0 Zofran 4 mg tablet 4 mg PO Q6H PRN (Reason: nausea and vomiting) Qty: 20 RF: 0 diclofenac sodium 75 mg tablet,delayed release (DR/EC) 75 mg PO Q12H PRN (Reason: pain) Qty: 20 RF: 0 No Action albuterol sulfate 90 mcg/actuation HFA aerosol inhaler 1 puff inhalation Q4H PRN (Reason: Shortness Of Breath) RF: 0 ipratropium-albuterol 0.5 mg-3 mg(2.5 mg base)/3 mL solution for nebulization 3 ml inhalation QID PRN (Reason: Shortness Of Breath) RF: 0 Farxiga 10 mg tablet 10 mg PO BEDTIME RF: 0 ibuprofen 200 mg tablet 800 mg PO PRN RF: 0 promethazine 12.5 mg tablet 12.5 mg PO Q6H PRN (Reason: Nausea And Vomiting) RF: 0 hydroxyzine HCl 50 mg tablet 50 mg PO QID PRN (Reason: anxiety/insomnia) Qty: 120 RF: 2 lisinopril 40 mg tablet 40 mg PO BEDTIME RF: 0 cetirizine 10 mg Tablet 10 mg PO BEDTIME RF: 0 clopidogrel 75 mg Tablet 75 mg PO BEDTIME RF: 0 gabapentin 300 mg capsule 900 mg PO BEDTIME RF: 0 Victoza 3-Benedict 0.6 mg/0.1 mL (18 mg/3 mL) pen injector 1.8 mg SUBCUT QAM RF: 0 metoprolol tartrate 100 mg tablet 100 mg PO BEDTIME RF: 0 ondansetron 4 mg tablet,disintegrating 4 mg PO Q6H PRN (Reason: nausea and vomiting) Qty: 14 RF: 0 multivitamin Tablet 1 tab PO DAILY RF: 0 atorvastatin 40 mg tablet 40 mg PO BEDTIME RF: 0 insulin lispro 100 unit/mL insulin pen 25 unit SUBCUT .WITH EVERY MEAL RF: 0 Dulera 100-5 mcg/actuation HFA aerosol inhaler 2 puff INHALATION BID RF: 0 furosemide [Lasix] 40 mg tablet 40 mg PO QAM RF: 0 valacyclovir 1 gram tablet 1,000 mg PO QPM RF: 0 prazosin 5 mg capsule 10 mg PO BEDTIME RF: 0 montelukast [Singulair] 10 mg tablet 10 mg PO DAILY RF: 0 mirtazapine 15 mg tablet 15 mg PO BEDTIME RF: 0 duloxetine 60 mg capsule,delayed release(DR/EC) 120 mg PO BEDTIME RF: 0 Lantus Solostar U-100 Insulin 100 unit/mL (3 mL) insulin pen 60 unit SUBCUT QAM RF: 0 Spiriva Respimat 2.5 mcg/actuation mist 2 puff inhalation DAILY RF: 0 Rexulti 2 mg tablet 2 mg PO BEDTIME RF: 0 Discharge Orders: Discharge ED (Routine); Ordered 03/18/21 Ordered By: Shalom García Referrals: Sandhya Yin NP [Primary Care Provider] - Discharge Diet: Clear Liquid Discharge Activity: Increase activity as tolerated Patient Instructions: Abdominal Pain (ED), Opioid Safety Coding Level of Care Code ED Railway Signal Electrician for Jd Fwd Exam Comprehensive
[2021-03-18 12:39] LABS: Add Urine Microscopic? NO; Charge for UA Resulting for Rev
[2021-03-18 12:50] LABS: Bilirubin Urine Neg (Negative); Blood Urine Neg (Negative); Glucose Urine UA 4+ (Normal); Ketones Urine Negative (Negative); Leukocyte Esterase Urine Negative (Negative); Nitrate Urine Negative (Negative); Protein Urine Neg (Negative); Specific Gravity, Urine 1.005 (1.005-1.030); Urine Appearance Clear (CLEAR); Urine Color Straw (Yellow); Urobilinogen Urine Norm (Negative); pH Urine 5 (5-7)
[2021-03-18 12:54] LABS: Basophils % 0.5 %; Eosinophils # 0.1 10^3/uL (0.0-0.8); Eosinophils % 0.9 %; Hematocrit 42.8 % (37.0-47.0); Hemoglobin 14.1 g/dL (11.5-15.3); Lymphocytes # 0.8 10^3/uL (0.8-4.8); Lymphocytes % 9.6 %; Mean Corpuscular HGB Conc 32.9 g/dL (30.0-36.0); Mean Corpuscular Volume 91.1 fL (81-99); Monocytes # 0.6 10^3/uL (0.2-0.9); Monocytes % 7.8 %; Neutrophils # 6.41 10^3/uL (1.8-7.7); Neutrophils % 80.7 %; Nucleated Red Blood Cells % 0 %; Platelet Count 162 10^3/cmm (130-400); Red Cell Distribution Width 12.3 % (12.1-15.1); White Blood Count 7.9 10^3/uL (4.0-10.0)
[2021-03-18] MEDS: ondansetron 2 mg/ML SDV 2 mL 4 MG IVP (12:56)
[2021-03-18] MEDS: morphine 4 mg/mL SDV 1 mL IVP (12:57)
[2021-03-18] MEDS: sodium chloride 0.9% 1,000 ML 999 ML IV ×2 (12:57→15:37)
[2021-03-18 13:02] LABS: Alanine Aminotransferase 25 U/L (0-33); Alkaline Phosphatase 102 IU/L (35-105); Blood Urea Nitrogen 10 mg/dL (6-20); Calcium 8.7 mg/dL (8.5-10.5); Carbon Dioxide 25 mmol/L (22-29); Chloride 96 mmol/L (98-107); Creatinine Clr Calc Pharmacy 92.8717; Globulin 2.1 g/dL (1.3-4.6); Glomerular Filtration Rate 58.2 mL/min (90-130); Glucose 264 mg/dL (65-115); Lipase 22 U/L (13-60); Osmolality Calculated 284 mOsm/kg (285-295); Sodium 133 mmol/L (136-145); Total Protein 6.1 g/dL (6.6-8.7)
[2021-03-18 13:07] LABS: Anion Gap 16.5 (5-19); Potassium 4.5 mmol/L (3.5-5.1)
[2021-03-18 13:08] LABS: Aspartate Amino Transferase 19 U/L (0-32)
[2021-03-18] MEDS: iohexol 300 mg/mL 100 mL Btl IV (13:11)
[2021-03-18 16:38] LABS: SARS Covid-2 Antigen Negative (Negative)
[2021-03-19 15:42] LABS: Coronavirus Test Green County Not Detected
== END 2021-03-18 17:15 | disposition home or self-care (01) ==
PROVIDERS: Emergency Provider Family Medicine; PCP Nurse Practitioner Family
DX: R10.31 Right lower quadrant pain (principal); D25.9 Leiomyoma of uterus, unspecified; I12.9 Hypertensive chronic kidney disease with stage 1 through stage 4 chronic kidney disease, or unspecified chronic kidney disease; N18.9 Chronic kidney disease, unspecified; E11.22 Type 2 diabetes mellitus with diabetic chronic kidney disease; E11.40 Type 2 diabetes mellitus with diabetic neuropathy, unspecified; J44.9 Chronic obstructive pulmonary disease, unspecified; Z86.73 Personal history of transient ischemic attack (TIA), and cerebral infarction without residual deficits; F17.210 Nicotine dependence, cigarettes, uncomplicated; Z79.4 Long term (current) use of insulin
CPT/HCPCS: 74177; 80053; 81003; 83690; 85025; 87040; 87426; 87635; 96361; 96374; 96376; 99284; J2270; J2405; J7030; Q9967

== ENCOUNTER 2021-03-19 16:40 | Emergency (ER) | payer MEDICAID, SELFPAY ==
[2021-03-19 17:43] VITALS: BP 141/82; PULSE 114; RESP 18; TEMP 38.5; O2SAT 96; BMI 45.2
[2021-03-19 19:26] LABS: Basophils # 0.1 10^3/uL (0.0-0.1); Basophils % 0.7 %; Eosinophils # 0.1 10^3/uL (0.0-0.8); Eosinophils % 1.7 %; Hematocrit 41.9 % (37.0-47.0); Hemoglobin 13.9 g/dL (11.5-15.3); Lymphocytes % 14.4 %; Mean Corpuscular HGB Conc 33.2 g/dL (30.0-36.0); Mean Corpuscular Hemoglobin 30.3 pg (28.0-34.0); Mean Corpuscular Volume 91.5 fL (81-99); Mean Platelet Volume 10.3 fL (7.4-10.4); Monocytes # 0.7 10^3/uL (0.2-0.9); Monocytes % 9.5 %; Neutrophils # 5.09 10^3/uL (1.8-7.7); Neutrophils % 73.3 %; Nucleated Red Blood Cells % 0 %; Platelet Count 181 10^3/cmm (130-400); Red Blood Count 4.58 10^6/uL (4.1-5.3); Red Cell Distribution Width 12.5 % (12.1-15.1)
--- NOTE | 2021-03-19 19:34 | W.ED.ABDPA2 ---
HPI - Abdominal Pain General: Chief Complaint: Abdominal Pain Stated Complaint: ABDOMINAL PAIN Time Seen by Provider: 03/19/21 19:34 History of Present Illness: HPI narrative: 51-year-old female comes in today with complaints of abdominal pain and malaise. Patient has been ill for the last 2 to 3 days with similar symptoms. She was evaluated yesterday but came back today to worsening mid abdominal pain. Patient appears well. Patient appears in mild pain. Patient also reports 2 episodes of vomiting. Associated Symptoms: Reports vomiting Review of Systems General: Reports: 10 or more systems reviewed and unremarkable except in HPI and below GI: Reports: abdominal pain and vomiting PFS ED PFSH: Medical History Asthma CKD (chronic kidney disease) COPD (chronic obstructive pulmonary disease) Depression DM type 2 (diabetes mellitus, type 2) Hypertension Migraines Neuropathy TIA (transient ischemic attack) Surgical History History of cholecystectomy History of tubal ligation Family History Mother Cancer Stage 4 kidney cancer Chronic kidney disease (CKD) Diabetes Hypertension Grandmother Cancer Maternal-Lung cancer Family/Other Cancer Maternal Aunt--Unknown Father Chronic kidney disease (CKD) Diabetes Hyperlipidemia Hypertension Daughter Diabetes Grandfather Stroke Maternal Denies family history of Ovarian cyst Anesthesia complication Bleeding disorder Thyroid disease Social History Smoking and tobacco status: current every day smoker cigarettes Years cigarettes smoked: 3 [ Other cigarette details: Hx o 2 PPD x 2 Years ] Second hand smoke exposure: Yes Smoking risk assessment/counseling performed?: Yes Alcohol intake: current Alcohol intake frequency: holidays/special occasions only Counseling given: No Counseling given: No Lives independently: Yes Household members: significant other Marital status: Life Partner Current occupational status: disabled History of recent travel: No Current gender identity: Female Physical Exam Const: COMMON NORMALS: no acute distress and patient oriented x3 GENERAL APPEARANCE: cooperative HENMT: COMMON NORMALS: normocephalic and Normal external nose present HEAD & SCALP: normal to inspection and normocephalic NOSE: Normal external nose present MOUTH: Normal oral and palatal mucosa present THROAT: posterior oropharynx normal Eye: GENERAL EYE: appearance normal, both eyes and all related structures Neck/C-Spine: COMMON NORMALS: full ROM Chest: COMMONS NORMALS: normal inspection of the chest Resp: COMMON NORMALS: normal respiratory effort EFFORT & INSPECTION: Yes able to speak in complete sentences Cardio: COMMON NORMALS: regular rate and regular rhythm RATE: regular rate RHYTHM: regular rhythm GI: COMMON NORMALS: Soft to palpation AUSCULTATION: Yes normoactive bowel sounds PALPATION: Yes Soft to palpation and Yes Tenderness to palpation present (GI) (Epigastric) : COMMON NORMALS: Yes no CVA tenderness BLADDER/KIDNEY EXAM: Yes no CVA tenderness Back/Pelvis: COMMON NORMALS: no CVA tenderness and thoracic and lumbar spine normal to inspection Extremity: COMMON NORMALS: normal to inspection Neuro: COMMON NORMALS: patient oriented x3 and moves all extremities Psych: COMMON NORMALS: mental status grossly normal and cooperative Skin: COMMON NORMALS: no rashes or lesions noted GENERAL SKIN EXAM: no rashes or lesions noted Course Vital Signs: Vital signs: Vital Signs Temperature 101.3 F H 03/19/21 17:43 Pulse Rate 114 H 03/19/21 17:43 Respiratory Rate 22 H 03/19/21 20:45 Blood Pressure 141/82 03/19/21 17:43 Pulse Oximetry 96 03/19/21 17:43 MDM - Abdominal Pain MDM Narrative: Medical decision making narrative: Patient comes in with abdominal pain. Patient appears mildly unwell but not toxic. Abdomen soft with some mid abdominal tenderness. Bowel sounds are present. Skin is warm and dry. Vital signs are normal except for some temperature of 101.3. Differential diagnosis includes but not limited to diverticulitis, pancreatitis, gastroenteritis. CBC was unremarkable. CMP noted a blood glucose of 289. Lipase was 466. The lipase was elevated from yesterday's lab of 22. CT was performed and showed no significant abnormality. Patient was given 1 L of IV fluids, 4 mg of morphine, and some Zofran. Patient was able to tolerate p.o. fluids. Patient reported that she was unable to get her prescription for pain medication filled yesterday that was prescribed due to a lack of signature. We will go ahead and write for some hydrocodone and Zofran again today to treat for the mild pancreatitis. Patient was recommended to stay on clear liquids until her pain is resolved. Patient was recommended to follow-up as needed for worsening symptoms or new concerns. Lab Data: Labs: Lab Results 03/19/21 03/19/21 03/19/21 Range/Units 19:00 19:00 19:00 WBC 7.0 (4.0-10.0) 10^3/ uL RBC 4.58 (4.1-5.3) 10^6/u L Hgb 13.9 (11.5-15.3) g/dL Hct 41.9 (37.0-47.0) % MCV 91.5 (81-99) fL MCH 30.3 (28.0-34.0) pg MCHC 33.2 (30.0-36.0) g/dL RDW 12.5 (12.1-15.1) % Plt Count 181 (130-400) 10^3/c mm MPV 10.3 (7.4-10.4) fL Neut % (Auto) 73.3 % Lymph % (Auto) 14.4 % [place] % (Auto) 9.5 % Eos % (Auto) 1.7 % Baso % (Auto) 0.7 % Neut # (Auto) 5.09 (1.8-7.7) 10^3/u L Lymph # (Auto) 1.0 (0.8-4.8) 10^3/u L [place] # (Auto) 0.7 (0.2-0.9) 10^3/u L Eos # (Auto) 0.1 (0.0-0.8) 10^3/u L Baso # (Auto) 0.1 (0.0-0.1) 10^3/u L Nucleated RBC % (a uto) 0 % Nucleated RBCs # 0.0 /100WBC PT (12.1-14.9) SECO NDS INR (0.8-1.2) APTT (23.9-36.7) SECO NDS Sodium 134 L (136-145) mmol/L Potassium 4.2 (3.5-5.1) mmol/L Chloride 101 (98-107) mmol/L Carbon Dioxide 20 L (22-29) mmol/L Anion Gap 17.2 (5-19) BUN 13 (6-20) mg/dL Creatinine 1.0 H (0.5-0.9) mg/dL GFR Calculation 58.2 L (90-130) mL/min Glucose 289 H (65-115) mg/dL Calculated Osmolal ity 289 (285-295) mOsm/k g Lactate (0.5-2.2) mmol/L Calcium 8.7 (8.5-10.5) mg/dL Total Bilirubin 0.7 (0.15-1.2) mg/dL AST 23 (0-32) U/L ALT 25 (0-33) U/L Alkaline Phosphata se 110 H (35-105) IU/L Total Protein 6.7 (6.6-8.7) g/dL Albumin 3.6 (3.5-5.2) g/dL Globulin 3.1 (1.3-4.6) g/dL Lipase 466 H (13-60) U/L Ser , Gerda i-Qnt 2.87 mIU/mL Urine Color (Yellow) Urine Appearance (CLEAR) Urine pH (5-7) Ur Specific Gravit y (1.005-1.030) Urine Protein (Negative) Urine Glucose (UA) (Normal) Urine Ketones (Negative) Urine Blood (Negative) Urine Nitrate (Negative) Urine Bilirubin (Negative) Urine Urobilinogen (Negative) mg/dL Ur Leukocyte Dulce ase (Negative) SARS-CoV-2 Ag (Rap id) (Negative) Blood Type Rho(D) Type Antibody Screen 03/19/21 03/19/21 03/19/21 Range/Units 19:00 19:00 19:00 WBC (4.0-10.0) 10^3/ uL RBC (4.1-5.3) 10^6/u L Hgb (11.5-15.3) g/dL Hct (37.0-47.0) % MCV (81-99) fL MCH (28.0-34.0) pg MCHC (30.0-36.0) g/dL RDW (12.1-15.1) % Plt Count (130-400) 10^3/c mm MPV (7.4-10.4) fL Neut % (Auto) % Lymph % (Auto) % Marinette % (Auto) % Eos % (Auto) % Baso % (Auto) % Neut # (Auto) (1.8-7.7) 10^3/u L Lymph # (Auto) (0.8-4.8) 10^3/u L Marinette # (Auto) (0.2-0.9) 10^3/u L Eos # (Auto) (0.0-0.8) 10^3/u L Baso # (Auto) (0.0-0.1) 10^3/u L Nucleated RBC % (a uto) % Nucleated RBCs # /100WBC PT 12.80 (12.1-14.9) SECO NDS INR 0.93 (0.8-1.2) APTT 28.1 (23.9-36.7) SECO NDS Sodium (136-145) mmol/L Potassium (3.5-5.1) mmol/L Chloride (98-107) mmol/L Carbon Dioxide (22-29) mmol/L Anion Gap (5-19) BUN (6-20) mg/dL Creatinine (0.5-0.9) mg/dL GFR Calculation (90-130) mL/min Glucose (65-115) mg/dL Calculated Osmolal ity (285-295) mOsm/k g Lactate 1.1 (0.5-2.2) mmol/L Calcium (8.5-10.5) mg/dL Total Bilirubin (0.15-1.2) mg/dL AST (0-32) U/L ALT (0-33) U/L Alkaline Phosphata se (35-105) IU/L Total Protein (6.6-8.7) g/dL Albumin (3.5-5.2) g/dL Globulin (1.3-4.6) g/dL Lipase (13-60) U/L Ser , Gerda i-Qnt mIU/mL Urine Color (Yellow) Urine Appearance (CLEAR) Urine pH (5-7) Ur Specific Gravit y (1.005-1.030) Urine Protein (Negative) Urine Glucose (UA) (Normal) Urine Ketones (Negative) Urine Blood (Negative) Urine Nitrate (Negative) Urine Bilirubin (Negative) Urine Urobilinogen (Negative) mg/dL Ur Leukocyte Dulce ase (Negative) SARS-CoV-2 Ag (Rap id) (Negative) Blood Type A Positive Rho(D) Type Positive / 4+ Antibody Screen Negative 03/19/21 03/19/21 Range/Units 19:32 20:45 WBC (4.0-10.0) 10^3/ uL RBC (4.1-5.3) 10^6/u L Hgb (11.5-15.3) g/dL Hct (37.0-47.0) % MCV (81-99) fL MCH (28.0-34.0) pg MCHC (30.0-36.0) g/dL RDW (12.1-15.1) % Plt Count (130-400) 10^3/c mm MPV (7.4-10.4) fL Neut % (Auto) % Lymph % (Auto) % Marin[place] % (Auto) % Eos % (Auto) % Baso % (Auto) % Neut # (Auto) (1.8-7.7) 10^3/u L Lymph # (Auto) (0.8-4.8) 10^3/u L [place] # (Auto) (0.2-0.9) 10^3/u L Eos # (Auto) (0.0-0.8) 10^3/u L Baso # (Auto) (0.0-0.1) 10^3/u L Nucleated RBC % (a uto) % Nucleated RBCs # /100WBC PT (12.1-14.9) SECO NDS INR (0.8-1.2) APTT (23.9-36.7) SECO NDS Sodium (136-145) mmol/L Potassium (3.5-5.1) mmol/L Chloride (98-107) mmol/L Carbon Dioxide (22-29) mmol/L Anion Gap (5-19) BUN (6-20) mg/dL Creatinine (0.5-0.9) mg/dL GFR Calculation (90-130) mL/min Glucose (65-115) mg/dL Calculated Osmolal ity (285-295) mOsm/k g Lactate (0.5-2.2) mmol/L Calcium (8.5-10.5) mg/dL Total Bilirubin (0.15-1.2) mg/dL AST (0-32) U/L ALT (0-33) U/L Alkaline Phosphata se (35-105) IU/L Total Protein (6.6-8.7) g/dL Albumin (3.5-5.2) g/dL Globulin (1.3-4.6) g/dL Lipase (13-60) U/L Ser , Gerda i-Qnt mIU/mL Urine Color Yellow (Yellow) Urine Appearance Clear (CLEAR) Urine pH 5 (5-7) Ur Specific Gravit y 1.010 (1.005-1.030) Urine Protein Neg (Negative) Urine Glucose (UA) 4+ H (Normal) Urine Ketones Negative (Negative) Urine Blood Neg (Negative) Urine Nitrate Negative (Negative) Urine Bilirubin Neg (Negative) Urine Urobilinogen Neg (Negative) mg/dL Ur Leukocyte Dulce ase Negative (Negative) SARS-CoV-2 Ag (Rap id) Negative (Negative) Blood Type Rho(D) Type Antibody Screen Discharge Plan Discharge Patient Disposition: Home Clinical Impression: Acute pancreatitis Qualifiers: Pancreatitis type: unspecified pancreatitis type Acute pancreatitis complication: unspecified Qualified Code(s): K85.90 - Acute pancreatitis without necrosis or infection, unspecified Condition: Stable Prescriptions: New ondansetron HCl 4 mg tablet 4 mg PO Q8H PRN (Reason: nausea and vomiting) Qty: 10 RF: 0 hydrocodone-acetaminophen 5-325 mg tablet 1 tab PO Q6H PRN (Reason: pain (scale score 7-10)) Qty: 12 RF: 0 No Action albuterol sulfate 90 mcg/actuation HFA aerosol inhaler 1 puff inhalation Q4H PRN (Reason: Shortness Of Breath) RF: 0 ipratropium-albuterol 0.5 mg-3 mg(2.5 mg base)/3 mL solution for nebulization 3 ml inhalation QID PRN (Reason: Shortness Of Breath) RF: 0 Farxiga 10 mg tablet 10 mg PO BEDTIME RF: 0 ibuprofen 200 mg tablet 800 mg PO PRN RF: 0 promethazine 12.5 mg tablet 12.5 mg PO Q6H PRN (Reason: Nausea And Vomiting) RF: 0 hydroxyzine HCl 50 mg tablet 50 mg PO QID PRN (Reason: anxiety/insomnia) Qty: 120 RF: 2 lisinopril 40 mg tablet 40 mg PO BEDTIME RF: 0 hydrocodone-acetaminophen 5-325 mg tablet 1 tab PO Q6H PRN (Reason: pain) Qty: 25 RF: 0 ondansetron HCl [Zofran] 4 mg tablet 4 mg PO Q6H PRN (Reason: nausea and vomiting) Qty: 20 RF: 0 diclofenac sodium 75 mg tablet,delayed release (DR/EC) 75 mg PO Q12H PRN (Reason: pain) Qty: 20 RF: 0 cetirizine 10 mg Tablet 10 mg PO BEDTIME RF: 0 clopidogrel 75 mg Tablet 75 mg PO BEDTIME RF: 0 gabapentin 300 mg capsule 900 mg PO BEDTIME RF: 0 Victoza 3-Benedict 0.6 mg/0.1 mL (18 mg/3 mL) pen injector 1.8 mg SUBCUT DAILY RF: 0 metoprolol tartrate 100 mg tablet 100 mg PO BEDTIME RF: 0 ondansetron 4 mg tablet,disintegrating 4 mg PO Q6H PRN (Reason: nausea and vomiting) Qty: 14 RF: 0 multivitamin Tablet 1 tab PO DAILY RF: 0 atorvastatin 40 mg tablet 40 mg PO BEDTIME RF: 0 insulin lispro 100 unit/mL insulin pen 25 unit SUBCUT TID RF: 0 Dulera 100-5 mcg/actuation HFA aerosol inhaler 2 puff INHALATION BID RF: 0 furosemide [Lasix] 40 mg tablet 40 mg PO DAILY RF: 0 valacyclovir 1 gram tablet 1,000 mg PO BEDTIME RF: 0 prazosin 5 mg capsule 10 mg PO BEDTIME RF: 0 mirtazapine 15 mg tablet 15 mg PO BEDTIME RF: 0 duloxetine 60 mg capsule,delayed release(DR/EC) 120 mg PO BEDTIME RF: 0 Lantus Solostar U-100 Insulin 100 unit/mL (3 mL) insulin pen 60 unit SUBCUT QAM RF: 0 Rexulti 2 mg tablet 2 mg PO BEDTIME RF: 0 Discharge Orders: Discharge ED (Routine); Ordered 03/19/21 Ordered By: Demetrius Mullins Referrals: Sandhya Yin NP [Primary Care Provider] - Discharge Diet: Usual diet Discharge Activity: Increase activity as tolerated Patient Instructions: Pancreatitis (ED), Opioid Safety Activity Restrictions/Additional Instructions: Drink plenty of fluids. Use a ondansetron 1 tablet every 8 hours for nausea and vomiting. Stay on a clear liquid diet until pain resolves. Use hydrocodone as needed for breakthrough pain. Follow-up with primary care for further instruction. Return to the ER for worsening symptoms or new concerns. Coding Level of Care Code ED Rn Teacher for Jd Bellamy
[2021-03-19 19:37] LABS: Add Urine Microscopic? NO; Charge for UA Resulting for Rev
[2021-03-19 19:41] LABS: INR 0.93 (0.8-1.2); Partial Thromboplastin Time 28.1 SECONDS (23.9-36.7)
[2021-03-19 19:46] LABS: Lactate (Lactic Acid level) 1.1 mmol/L (0.5-2.2)
[2021-03-19 19:57] LABS: Ketones Urine Negative (Negative); Protein Urine Neg (Negative); Urine Appearance Clear (CLEAR); Urine Color Yellow (Yellow); pH Urine 5 (5-7)
[2021-03-19 19:58] LABS: Bilirubin Urine Neg (Negative); Blood Urine Neg (Negative); Glucose Urine UA 4+ (Normal); Leukocyte Esterase Urine Negative (Negative); Nitrate Urine Negative (Negative); Urobilinogen Urine Neg (Negative)
--- NOTE | 2021-03-19 20:00 | CTR_ITS ---
PROCEDURE INFORMATION: Exam: CT Abdomen And Pelvis With Contrast Exam date and time: 03/19/2021 8:00 PM Age: 51 years old Clinical indication: Fever; Prior surgery; Surgery type: Gb, tubal; Additional info: Fever, worsening abd pain TECHNIQUE: Imaging protocol: Computed tomography of the abdomen and pelvis with contrast. Radiation optimization: All CT scans at this facility use at least one of these dose optimization techniques: automated exposure control; mA and/or kV adjustment per patient size (includes targeted exams where dose is matched to clinical indication); or iterative reconstruction. Contrast material: OMNI 300; Contrast volume: 95 ml; Contrast route: INTRAVENOUS (IV); COMPARISON: CT abdomen pelvis w con* [id number] 03/18/2021 12:53 PM RADIATION DOSE METRICS: Total DLP (mGy-cm): 1875.21 FINDINGS: Liver: Mild diffuse hepatic steatosis. No focal lesions. Gallbladder and bile ducts: Cholecystectomy clips. Pancreas: Normal. No ductal dilation. Spleen: Mild splenomegaly. No lesions. Adrenal glands: Normal. No mass. Kidneys and ureters: No hydronephrosis. No mass. Stomach and bowel: No obstruction. No inflammatory changes. Appendix: No evidence of appendicitis. Intraperitoneal space: No free air. No significant fluid collection. Vasculature: Unremarkable. No abdominal aortic aneurysm. Lymph nodes: Unremarkable. No enlarged lymph nodes. Urinary bladder: Bladder partially filled. No stones. Reproductive: Uterus normal in size. 2.5 cm subserosal fibroid posterior fundus to the right of midline. No adnexal mass. Bones/joints: Lower lumbar degenerative changes. No acute fracture. Soft tissues: Unremarkable. Other findings: No acute findings within the included inferior thorax. CT/CT abdomen pelvis w con* [id number] IMPRESSION: 1. No acute findings. 2. Mild hepatic steatosis. 3. Other chronic and incidental findings as described. Radiation Dose CTDIVOL = (mGy): DLP = 1875.21 (mGy-cm)
[2021-03-19 20:04] LABS: Alanine Aminotransferase 25 U/L (0-33); Albumin Level 3.6 g/dL (3.5-5.2); Alkaline Phosphatase 110 IU/L (35-105); Anion Gap 17.2 (5-19); Aspartate Amino Transferase 23 U/L (0-32); Blood Urea Nitrogen 13 mg/dL (6-20); Calcium 8.7 mg/dL (8.5-10.5); Carbon Dioxide 20 mmol/L (22-29); Chloride 101 mmol/L (98-107); Creatinine Clr Calc Pharmacy 92.8717; Globulin 3.1 g/dL (1.3-4.6); Glomerular Filtration Rate 58.2 mL/min (90-130); Glucose 289 mg/dL (65-115); Lipase 466 U/L (13-60); Osmolality Calculated 289 mOsm/kg (285-295); Potassium 4.2 mmol/L (3.5-5.1); Sodium 134 mmol/L (136-145); Total Bilirubin 0.7 mg/dL (0.15-1.2); Total Protein 6.7 g/dL (6.6-8.7)
[2021-03-19 20:18] LABS: HCG Quantitative 2.87 mIU/mL
[2021-03-19] MEDS: iohexol 300 mg/mL 100 mL Btl IV (20:29)
[2021-03-19] MEDS: ondansetron 2 mg/ML SDV 2 mL 4 MG IVP (20:44)
[2021-03-19] MEDS: acetaminophen 500 mg Tablet 1000 MG PO (20:44)
[2021-03-19 20:45] VITALS: RESP 22
[2021-03-19] MEDS: morphine 4 mg/mL SDV 1 mL IVP ×2 (20:45→22:20)
[2021-03-19] MEDS: sodium chloride 0.9% 1,000 ML 999 ML IV (20:46)
[2021-03-19 21:32] LABS: SARS Covid-2 Antigen Negative (Negative)
[2021-03-19 22:20] VITALS: RESP 22
[2021-03-19 23:00] VITALS: RESP 22; TEMP 37.3; O2SAT 96
--- NOTE | 2021-03-21 06:27 | PC.NURSE ---
Lab called 1 of 3 positive blood culture for gram negative rods. Physician notified, physician said could be contaminate, wait for other results.
== END 2021-03-19 23:00 | disposition home or self-care (01) ==
PROVIDERS: Emergency Medicine; Emergency Provider Nurse Practitioner Family; PCP Nurse Practitioner Family
DX: K85.90 Acute pancreatitis without necrosis or infection, unspecified (principal); I12.9 Hypertensive chronic kidney disease with stage 1 through stage 4 chronic kidney disease, or unspecified chronic kidney disease; N18.9 Chronic kidney disease, unspecified; E11.22 Type 2 diabetes mellitus with diabetic chronic kidney disease; J45.909 Unspecified asthma, uncomplicated; F17.210 Nicotine dependence, cigarettes, uncomplicated; Z79.4 Long term (current) use of insulin; Z86.73 Personal history of transient ischemic attack (TIA), and cerebral infarction without residual deficits
CPT/HCPCS: 36415; 74177; 80053; 81003; 83605; 83690; 84702; 85025; 85610; 85730; 86850; 86900; 87040; 87077; 87186; 87205; 87426; 96361; 96374; 96375; 96376; 99283; J2270; J2405; J7030; Q9967

== ENCOUNTER 2021-04-01 20:23 | Emergency (ER) | payer MEDICAID, SELFPAY ==
[2021-04-01 21:15] VITALS: BP 137/101; PULSE 105; RESP 18; TEMP 37.3; O2SAT 95; BMI 44.8
--- NOTE | 2021-04-02 00:13 | ED_ITS ---
HPI - Abdominal Pain General: Chief Complaint: Abdominal Pain Stated Complaint: ABD PAIN Time Seen by Provider: 04/01/21 23:58 Source: patient Mode of arrival: ambulatory Limitations: no limitations History of Present Illness: HPI narrative: 51-year-old female states she has been having abdominal pain over the last 2 to 3 days. States it is in her left lower quadrant mid abdomen. States that she was diagnosed with mild pancreatitis 2 weeks ago and is unsure pancreatitis is worsened. She denies any vomiting or diarrhea. States she had subjective fevers at home but is afebrile here. States pain is sharp in nature and rates it an 8 out of 10. Denies any worsening improving factors. She denies any chest pain. Denies any radiation of her pain. Associated Symptoms: Denies chills, dysuria and fever(s) Review of Systems Const: Denies: fever(s), chills, body aches or change in appetite Eyes: Denies: blurry vision or eye discomfort ENMT: Denies: throat pain or dental pain Card: Denies: chest pain Resp: Denies: dyspnea GI: Reports: abdominal pain : Denies: dysuria Musc: Denies: neck pain or back pain Skin/Breast: Denies: rash Neuro: Denies: headache(s) Psych: Denies: depression Morgan/Lymph: Denies: easy bruising All/Imm: Denies: urticaria PFSH ED PFSH: Medical History Asthma CKD (chronic kidney disease) COPD (chronic obstructive pulmonary disease) Depression DM type 2 (diabetes mellitus, type 2) Hypertension Migraines Neuropathy ADAL (obstructive sleep apnea) TIA (transient ischemic attack) Surgical History History of cholecystectomy History of tubal ligation Family History Mother Cancer Stage 4 kidney cancer Chronic kidney disease (CKD) Diabetes Hypertension Grandmother Cancer Maternal-Lung cancer Family/Other Cancer Maternal Aunt--Unknown Father Chronic kidney disease (CKD) Diabetes Hyperlipidemia Hypertension Daughter Diabetes Grandfather Stroke Maternal Denies family history of Ovarian cyst Anesthesia complication Bleeding disorder Thyroid disease Social History Second hand smoke exposure: Yes Smoking risk assessment/counseling performed?: Yes Alcohol intake: current Alcohol intake frequency: holidays/special occasions only Counseling given: No Counseling given: No Lives independently: Yes Household members: significant other Marital status: Life Partner Current occupational status: disabled History of recent travel: No Current gender identity: Female Physical Exam Const: COMMON NORMALS: no acute distress, patient oriented x3 and healthy appearing HENMT: COMMON NORMALS: normocephalic and atraumatic HEAD & SCALP: normocephalic and atraumatic Eye: COMMON NORMALS: Equal, round and reactive pupils present and EOMs intact bilaterally PUPIL: Yes Equal, round and reactive pupils present Neck/C-Spine: COMMON NORMALS: full ROM and supple Chest: COMMONS NORMALS: normal inspection of the chest and normal palpation of entire chest wall Resp: COMMON NORMALS: normal respiratory effort, No retractions, No use of accessory muscles and clear to auscultation bilaterally AUSCULTATION: clear to auscultation bilaterally Cardio: COMMON NORMALS: regular rate, regular rhythm and No murmurs present (Cardio) RATE: regular rate RHYTHM: regular rhythm GI: COMMON NORMALS: Normal to inspection, nondistended, normoactive bowel sounds present, Soft to palpation and no masses PALPATION: Yes Soft to palpation and Yes Tenderness to palpation present (GI) Details: LLQ Extremity: COMMON NORMALS: normal to inspection and full ROM Neuro: COMMON NORMALS: patient oriented x3, moves all extremities and no focal motor deficits Psych: COMMON NORMALS: mental status grossly normal, Normal thought process p resent and cooperative THOUGHT PROCESS: Normal thought process present Skin: COMMON NORMALS: no rashes or lesions noted and no wounds GENERAL SKIN EXAM: no rashes or lesions noted Course Vital Signs: Vital signs: Vital Signs Temperature 99.1 F 04/01/21 21:15 Pulse Rate 112 H 04/02/21 00:31 Respiratory Rate 18 04/02/21 04:47 Blood Pressure 172/125 04/02/21 00:31 Pulse Oximetry 95 04/02/21 00:31 MDM - Abdominal Pain MDM Narrative: Medical decision making narrative: Patient presents with abdominal pain with CT showing pyelitis. Patient is well-appearing here and has no signs of sepsis. Her pain is improved. We will place her on pain meds along with antibiotics for home. She is to follow-up with PCP and return if worsening. Lab Data: Labs: Lab Results 04/02/21 04/02/21 04/02/21 Range/Units 00:30 00:30 02:25 WBC 15.2 H (4.0-10.0) 10^3/ uL RBC 4.74 (4.1-5.3) 10^6/u L Hgb 14.0 (11.5-15.3) g/dL Hct 41.9 (37.0-47.0) % MCV 88.4 (81-99) fl MCH 29.5 (28.0-34.0) pg MCHC 33.4 (30.0-36.0) g/dL RDW 12.5 (12.1-15.1) % Plt Count 422 H (130-400) 10^3/c mm MPV 9.6 (7.4-10.4) fL Neut % (Auto) 73.0 % Lymph % (Auto) 16.3 % [place] % (Auto) 6.9 % Eos % (Auto) 2.1 % Baso % (Auto) 0.7 % Neut # (Auto) 11.11 H (1.8-7.7) 10^3/u L Lymph # (Auto) 2.5 (0.8-4.8) 10^3/u L [place] # (Auto) 1.1 H (0.2-0.9) 10^3/u L Eos # (Auto) 0.3 (0.0-0.8) 10^3/u L Baso # (Auto) 0.1 (0.0-0.1) 10^3/u L Nucleated RBC % (a uto) 0 % Nucleated RBCs # 0.0 /100WBC Sodium 135 L (136-145) mmol/L Potassium 4.9 (3.5-5.1) mmol/L Chloride 96 L (98-107) mmol/L Carbon Dioxide 24 (22-29) mmol/L Anion Gap 19.9 H (5-19) BUN 14 (6-20) mg/dL Creatinine 1.0 H (0.5-0.9) mg/dL GFR Calculation 58.2 L (90-130) mL/min Glucose 343 H (65-115) mg/dL Calculated Osmolal ity 294 (285-295) mOsm/k g Calcium 9.8 (8.5-10.5) mg/dL Total Bilirubin 0.6 (0.15-1.2) mg/dL AST 8 (0-32) U/L ALT 13 (0-33) U/L Alkaline Phosphata se 148 H (35-105) IU/L Total Protein 7.9 (6.6-8.7) g/dL Albumin 3.9 (3.5-5.2) g/dL Globulin 4.0 (1.3-4.6) g/dL Lipase 30 (13-60) U/L Urine Color Yellow (Yellow) Urine Appearance Clear (CLEAR) Urine pH 5 (5-7) Ur Specific Gravit y 1.005 (1.005-1.030) Urine Protein 1+ H (Negative) Urine Glucose (UA) 4+ H (Normal) Urine Ketones Negative (Negative) Urine Blood 2+ H (Negative) Urine Nitrate Negative (Negative) Urine Bilirubin Neg (Negative) Urine Urobilinogen Norm (Negative) mg/dL Ur Leukocyte Dulce ase Negative (Negative) Urine RBC 5-10 H (0-2) /hpf Urine WBC 25-40 H (0-5) /hpf Ur Squamous Epith Cells 0-4 H (0-5) /hpf Amorphous Sediment Not Reportable Urine Bacteria Trace (NONE) /hpf Urine Yeast 1+ H /hpf Imaging Data ^: CT Abd/Pel: Attestation: I personally reviewed and interpreted this imaging study as follows: Radiologist's impression: [address] [address] [address] Scan Report Signed Patient: Vanesa Ignacio Unit #: [id number] : 1970 Age/Sex: 51 / F ADM Date: 04/01 Loc: ER Room/Bed: Attending Dr: Ordering Provider/Ordering MD: Lennox Anthony MD Date of Service: 04/02/21 Procedure(s): CT abdomen pelvis w con* [id number] Accession Number(s): [id number] Report Number: [id number] PROCEDURE INFORMATION: Exam: CT Abdomen And Pelvis With Contrast Exam date and time: 04/02/2021 12:23 AM Age: 51 years old Clinical indication: Abdominal pain; Prior surgery; Surgery type: Gb. Tubal. ; Patient HX: Epigastric pain with nausea. History of panceatitis. ; Additional info: Abd pain TECHNIQUE: Imaging protocol: Computed tomography of the abdomen and pelvis with contrast. Radiation optimization: All CT scans at this facility use at least one of these dose optimization techniques: automated exposure control; mA and/or kV adjustment per patient size (includes targeted exams where dose is matched to clinical indication); or iterative reconstruction. Contrast material: OMNI 300; Contrast volume: 95 ml; Contrast route: INTRAVENOUS (IV); COMPARISON: CT abdomen pelvis w con* [id number] 03/19/2021 8:25 PM RADIATION DOSE METRICS: Total DLP (mGy-cm): 1875.21 FINDINGS: Lungs: Lung bases are clear. Liver: The liver is normal. Gallbladder and bile ducts: The gallbladder is absent. There is no intrahepatic or extrahepatic bile duct dilation. Pancreas: The pancreas is unremarkable. Spleen: The spleen is mildly enlarged. Adrenal glands: The adrenal glands are unremarkable. Kidneys and ureters: Left kidney and ureter are normal. There is subtle right urothelial thickening and periureteral edema proximally. No hydronephrosis or stones. No abnormal renal parenchymal enhancement. Stomach and bowel: The stomach is unremarkable. The small bowel is nondilated. The colon is unremarkable. Appendix: The appendix is normal. Intraperitoneal space: There is no free air or significant intraperitoneal free fluid. Vasculature: There is mild aortic atherosclerotic disease. Lymph nodes: There is no lymphadenopathy in the retroperitoneum, mesentery, pelvis or inguinal regions. Urinary bladder: The urinary bladder is unremarkable. Reproductive: There is a 2.4 cm exophytic uterine body fibroid. There is no adnexal mass or cyst. Bones/joints: There is moderate degenerative disease in the lumbar spine. Soft tissues: The abdominal wall is intact. CT/CT abdomen pelvis w con* [id number] IMPRESSION: 1. Probable right pyelitis. No sign of obstruction. No stones. 2. Incidental findings above. Radiation Dose CTDIVOL = (mGy): DLP = 1875.21 (mGy-cm) Dictated By: Darryn Silva MD Signed By: Darryn Silva MD Signed Date/Time: 04/02/21 0155 DD/ 0153 Discharge Plan Discharge Patient Disposition: Home Clinical Impression: Acute pyelitis Abdominal pain Qualifiers: Abdominal location: generalized Qualified Code(s): R10.84 - Generalized abdominal pain Condition: Stable Prescriptions: New hydrocodone-acetaminophen 5-325 mg tablet 1 tab PO Q6H PRN (Reason: pain) Qty: 14 RF: 0 ondansetron 4 mg tablet,disintegrating 4 mg PO Q6H PRN (Reason: nausea and vomiting) Qty: 14 RF: 0 ciprofloxacin HCl 500 mg tablet 500 mg PO BID Qty: 14 RF: 0 No Action albuterol sulfate 90 mcg/actuation HFA aerosol inhaler 1 puff inhalation Q4H PRN (Reason: Shortness Of Breath) RF: 0 ipratropium-albuterol 0.5 mg-3 mg(2.5 mg base)/3 mL solution for nebulization 3 ml inhalation QID PRN (Reason: Shortness Of Breath) RF: 0 Farxiga 10 mg tablet 10 mg PO BEDTIME RF: 0 ibuprofen 200 mg tablet 800 mg PO PRN RF: 0 promethazine 12.5 mg tablet 12.5 mg PO Q6H PRN (Reason: Nausea And Vomiting) RF: 0 hydroxyzine HCl 50 mg tablet 50 mg PO QID PRN (Reason: anxiety/insomnia) Qty: 120 RF: 2 (DME) Dexcom G6 Sensor Device See Rx Instructions .ROUTE .MEDSUPPLY Qty: 3 RF: 3 (DME) Dexcom G6 Newspaper Managing Editor Misc See Rx Instructions .ROUTE .MEDSUPPLY Qty: 1 RF: 0 (DME) Dexcom G6 Transmitter Device See Rx Instructions .ROUTE .MEDSUPPLY Qty: 1 RF: 3 lisinopril 40 mg tablet 40 mg PO BEDTIME RF: 0 hydrocodone-acetaminophen 5-325 mg tablet 1 tab PO Q6H PRN (Reason: pain) Qty: 25 RF: 0 ondansetron HCl [Zofran] 4 mg tablet 4 mg PO Q6H PRN (Reason: nausea and vomiting) Qty: 20 RF: 0 diclofenac sodium 75 mg tablet,delayed release (DR/EC) 75 mg PO Q12H PRN (Reason: pain) Qty: 20 RF: 0 hydrocodone-acetaminophen 5-325 mg tablet 1 tab PO Q6H PRN (Reason: pain (scale score 7-10)) Qty: 12 RF: 0 cetirizine 10 mg Tablet 10 mg PO BEDTIME RF: 0 clopidogrel 75 mg Tablet 75 mg PO BEDTIME RF: 0 gabapentin 300 mg capsule 900 mg PO BEDTIME RF: 0 Victoza 3-Benedict 0.6 mg/0.1 mL (18 mg/3 mL) pen injector 1.8 mg SUBCUT DAILY RF: 0 metoprolol tartrate 100 mg tablet 100 mg PO BEDTIME RF: 0 ondansetron 4 mg tablet,disintegrating 4 mg PO Q6H PRN (Reason: nausea and vomiting) Qty: 14 RF: 0 multivitamin Tablet 1 tab PO DAILY RF: 0 atorvastatin 40 mg tablet 40 mg PO BEDTIME RF: 0 insulin lispro 100 unit/mL insulin pen 25 unit SUBCUT TID RF: 0 Dulera 100-5 mcg/actuation HFA aerosol inhaler 2 puff INHALATION BID RF: 0 furosemide [Lasix] 40 mg tablet 40 mg PO DAILY RF: 0 valacyclovir 1 gram tablet 1,000 mg PO BEDTIME RF: 0 prazosin 5 mg capsule 10 mg PO BEDTIME RF: 0 mirtazapine 15 mg tablet 15 mg PO BEDTIME RF: 0 duloxetine 60 mg capsule,delayed release(DR/EC) 120 mg PO BEDTIME RF: 0 Lantus Solostar U-100 Insulin 100 unit/mL (3 mL) insulin pen 60 unit SUBCUT QAM RF: 0 Rexulti 2 mg tablet 2 mg PO BEDTIME RF: 0 Discharge Orders: Discharge ED (Routine); Ordered 04/02/21 Ordered By: Lennox Anthony Referrals: Sandhya Yin NP [Primary Care Provider] - Discharge Diet: Advance as tolerated Discharge Activity: Resume usual activity Patient Instructions: Abdominal Pain (ED), Opioid Safety Coding Level of Care Code ED Wine Maker for Chg Fwd Exam Comprehensive
--- NOTE | 2021-04-02 00:23 | CTR_ITS ---
PROCEDURE INFORMATION: Exam: CT Abdomen And Pelvis With Contrast Exam date and time: 04/02/2021 12:23 AM Age: 51 years old Clinical indication: Abdominal pain; Prior surgery; Surgery type: Gb. Tubal. ; Patient HX: Epigastric pain with nausea. History of panceatitis. ; Additional info: Abd pain TECHNIQUE: Imaging protocol: Computed tomography of the abdomen and pelvis with contrast. Radiation optimization: All CT scans at this facility use at least one of these dose optimization techniques: automated exposure control; mA and/or kV adjustment per patient size (includes targeted exams where dose is matched to clinical indication); or iterative reconstruction. Contrast material: OMNI 300; Contrast volume: 95 ml; Contrast route: INTRAVENOUS (IV); COMPARISON: CT abdomen pelvis w con* [id number] 03/19/2021 8:25 PM RADIATION DOSE METRICS: Total DLP (mGy-cm): 1875.21 FINDINGS: Lungs: Lung bases are clear. Liver: The liver is normal. Gallbladder and bile ducts: The gallbladder is absent. There is no intrahepatic or extrahepatic bile duct dilation. Pancreas: The pancreas is unremarkable. Spleen: The spleen is mildly enlarged. Adrenal glands: The adrenal glands are unremarkable. Kidneys and ureters: Left kidney and ureter are normal. There is subtle right urothelial thickening and periureteral edema proximally. No hydronephrosis or stones. No abnormal renal parenchymal enhancement. Stomach and bowel: The stomach is unremarkable. The small bowel is nondilated. The colon is unremarkable. Appendix: The appendix is normal. Intraperitoneal space: There is no free air or significant intraperitoneal free fluid. Vasculature: There is mild aortic atherosclerotic disease. Lymph nodes: There is no lymphadenopathy in the retroperitoneum, mesentery, pelvis or inguinal regions. Urinary bladder: The urinary bladder is unremarkable. Reproductive: There is a 2.4 cm exophytic uterine body fibroid. There is no adnexal mass or cyst. Bones/joints: There is moderate degenerative disease in the lumbar spine. Soft tissues: The abdominal wall is intact. CT/CT abdomen pelvis w con* [id number] IMPRESSION: 1. Probable right pyelitis. No sign of obstruction. No stones. 2. Incidental findings above. Radiation Dose CTDIVOL = (mGy): DLP = 1875.21 (mGy-cm)
[2021-04-02 00:25] VITALS: RESP 22
[2021-04-02] MEDS: morphine 4 mg/mL SDV 1 mL IVP ×2 (00:25→04:47)
[2021-04-02] MEDS: ondansetron 2 mg/ML SDV 2 mL 4 MG IVP (00:25)
[2021-04-02 00:31] VITALS: BP 172/125; PULSE 112; RESP 22; O2SAT 95
[2021-04-02] MEDS: sodium chloride 0.9% 1,000 ML 999 ML IV ×2 (00:38→01:15)
[2021-04-02 00:40] LABS: Basophils # 0.1 10^3/uL (0.0-0.1); Basophils % 0.7 %; Eosinophils # 0.3 10^3/uL (0.0-0.8); Eosinophils % 2.1 %; Hematocrit 41.9 % (37.0-47.0); Lymphocytes # 2.5 10^3/uL (0.8-4.8); Lymphocytes % 16.3 %; Mean Corpuscular HGB Conc 33.4 g/dL (30.0-36.0); Mean Corpuscular Hemoglobin 29.5 pg (28.0-34.0); Mean Corpuscular Volume 88.4 fl (81-99); Mean Platelet Volume 9.6 fL (7.4-10.4); Monocytes # 1.1 10^3/uL (0.2-0.9); Monocytes % 6.9 %; Neutrophils # 11.11 10^3/uL (1.8-7.7); Nucleated Red Blood Cells % 0 %; Platelet Count 422 10^3/cmm (130-400); Red Blood Count 4.74 10^6/uL (4.1-5.3); Red Cell Distribution Width 12.5 % (12.1-15.1); White Blood Count 15.2 10^3/uL (4.0-10.0)
[2021-04-02] MEDS: iohexol 300 mg/mL 100 mL Btl IV (01:02)
[2021-04-02 01:03] LABS: Alanine Aminotransferase 13 U/L (0-33); Albumin Level 3.9 g/dL (3.5-5.2); Alkaline Phosphatase 148 IU/L (35-105); Anion Gap 19.9 (5-19); Aspartate Amino Transferase 8 U/L (0-32); Blood Urea Nitrogen 14 mg/dL (6-20); Calcium 9.8 mg/dL (8.5-10.5); Carbon Dioxide 24 mmol/L (22-29); Chloride 96 mmol/L (98-107); Glomerular Filtration Rate 58.2 mL/min (90-130); Glucose 343 mg/dL (65-115); Lipase 30 U/L (13-60); Osmolality Calculated 294 mOsm/kg (285-295); Potassium 4.9 mmol/L (3.5-5.1); Sodium 135 mmol/L (136-145); Total Bilirubin 0.6 mg/dL (0.15-1.2); Total Protein 7.9 g/dL (6.6-8.7)
[2021-04-02 01:15] VITALS: RESP 22
[2021-04-02] MEDS: HYDROmorphone 1 mg/mL INJ 1 mL IVP (01:15)
[2021-04-02 02:47] LABS: Add Urine Culture? Yes; Add Urine Microscopic? YES; Bacteria Urine TRACE /hpf; Bilirubin Urine Neg (Negative); Blood Urine 2+ (Negative); Glucose Urine UA 4+ (Normal); Ketones Urine Negative (Negative); Leukocyte Esterase Urine Negative (Negative); Nitrate Urine Negative (Negative); Protein Urine 1+ (Negative); Specific Gravity, Urine 1.005 (1.005-1.030); Squamous Epithelial Cell Urine 0-4 /hpf (0-5); Urine Appearance Clear (CLEAR); Urine Color Yellow (Yellow); Urobilinogen Urine Norm (Negative); WBC Urine 25-40 /hpf (0-5); pH Urine 5 (5-7)
[2021-04-02 04:00] VITALS: BP 136/95; PULSE 77; RESP 18; O2SAT 98
[2021-04-02 04:47] VITALS: RESP 18
[2021-04-02 05:00] VITALS: BP 138/95; PULSE 78; RESP 18; O2SAT 98
== END 2021-04-02 05:00 | disposition home or self-care (01) ==
PROVIDERS: Emergency Provider Emergency Medicine; PCP Nurse Practitioner Family
DX: N10 Acute pyelonephritis (principal); R10.84 Generalized abdominal pain; Z79.02 Long term (current) use of antithrombotics/antiplatelets; Z79.4 Long term (current) use of insulin; J44.9 Chronic obstructive pulmonary disease, unspecified; E11.40 Type 2 diabetes mellitus with diabetic neuropathy, unspecified; I10 Essential (primary) hypertension; Z86.73 Personal history of transient ischemic attack (TIA), and cerebral infarction without residual deficits; Z77.22 Contact with and (suspected) exposure to environmental tobacco smoke (acute) (chronic)
CPT/HCPCS: 74177; 80053; 81001; 83690; 85025; 87077; 87086; 87186; 96361; 96374; 96375; 96376; 99284; J1170; J2270; J2405; J7030; Q9967

== ENCOUNTER 2021-04-03 07:12 | Outpatient (CLI) | payer MEDICAID, SELFPAY ==
[2021-04-03 07:28] VITALS: BMI 45.4
--- NOTE | 2021-04-03 07:28 | ECG_ITS ---
[facility] Test Date: 2021-04-03 Pat Name: Vanesa Ignacio Department: Room: Gender: Female Pet Caregiver: : 1970 Requested By: Ron Hammerr Mirna Order Number: [id number] Mi MD: Harlan Pablo M.D. Interpretive Statements NAME OF STUDY: LEXISCAN SESTAMIBI STRESS TEST INDICATION: Shortness of Breath, PROCEDURE: At the baseline, the EKG revealed normal sinus rhythm with some nonspecific T wave changes. The baseline blood pressure was 144/92 mm Hg with a heart rate of 98 beats/min. Lexiscan was infused over a period of 20 seconds. A total of 0.4 milligrams of Lexiscan was infused. The stress phase was continued for a total of 5 minutes. Heart rate at the end of the stress phase was 112 with a blood pressure 164/88. The EKG at the peak infusion revealed no significant changes. Sestamibi was injected 20 seconds after the Lexiscan infusion. Blood pressure at the end of the recovery phase was 153/82 with a heart rate of 112 per minute. CONCLUSION: 1. No significant EKG changes with the LexiScan infusion 2. No LexiScan induced chest pain or cardiac arrhythmia 3. Normal blood pressure and heart rate response 4. Sestamibi/sestamibi perfusion scan pending; see separate report. Electronically Signed On 04-08-2021 13:47:41 CDT by Harlan Pablo M.D. [email or web address]
--- NOTE | 2021-04-03 07:28 | NMCV_ITS ---
NM demetrius perf SPECT r/s* [id number] Vanesa Ignacio Age: 51 Gender: F : 1970 Exam Date: 04/03/2021 08:34 Ordering Phys: Ron Joyce MD Technologist: PARISA Vaughn Exam Location: [facility] Indications: SHORTNESS OF BREATH STRESS TEST Please see separate stress test report in [facility] for full findings IMAGE PROTOCOL Rest/Stress 1 Lexiscan Day Radiopharmaceutical Dose (mCi) Administration Site Administered by Rest: Tc-99m 10.7 IV PARISA So Sestamibi Stress:Tc-99m 33.0 IV PARISA So Sestamibi Rest: 03-Apr-2021 60 Discovery 630 Stress: 03-Apr-2021 30 Discovery 630 0.4mg Lexiscan. Images obtained in supine and prone position. SPECT RESULTS Technical Quality: Excellent Raw Data Analysis: Breast attenuation Image Corrections: No attenuation or motion correction applied Summed Stress Score: 0 Summed Rest Score: 0 Summed Difference Score: 0 PERFUSION FINDINGS Fairly uniform myocardial tracer uptake with no significant perfusion abnormalities FUNCTIONAL RESULTS (calculated via Gated SPECT) Stress Image LV EF (%): 78 Stress EDV (mL):60 TID: 0.67 Stress ESV (mL):13 FUNCTIONAL FINDINGS: Segmental wall motion analysis revealing no gross wall motion normalities. IMPRESSIONS 1. Unremarkable myocardial perfusion imaging. 2. Normal ejection fraction of 78%. 3. LV wall motion analysis revealing no gross wall motion abnormalities. 4. Normal LV volume. No significant coronary ischemia, based on the above findings Dr Harlan Pablo MD FAC (Electronically Signed) Final Date: 03 April 2021 13:33 S
[2021-04-03] MEDS: regadenoson 0.4 Mg/5 ml Syringe IVP (09:13)
[2021-04-03 09:31] VITALS: BP 153/82; PULSE 112
== END 2021-04-03 07:13 | disposition home or self-care (01) ==
LOC: CDL 07:13
PROVIDERS: PCP Nurse Practitioner Family; Visit Provider Internal Medicine Pulmonary Disease
DX: R06.02 Shortness of breath (principal); R07.9 Chest pain, unspecified
CPT/HCPCS: 78452; 93017; A9500; J2785

== ENCOUNTER 2021-04-16 07:50 | Outpatient (CLI) | payer MEDICAID, SELFPAY ==
[2021-04-16 07:40] VITALS: BP 149/92; PULSE 98; RESP 20; TEMP 36.6; O2SAT 93
--- NOTE | 2021-04-16 08:33 | PC.NURSE ---
All care on this patient was delivered by TERESITA Singletary. All documentation was entered my this author.
[2021-04-16 08:50] VITALS: BP 142/99; PULSE 92; RESP 18; TEMP 37; O2SAT 95
[2021-04-16 09:50] VITALS: BP 125/88; PULSE 85; RESP 18; TEMP 36.7; O2SAT 92
== END 2021-04-16 09:54 | disposition home or self-care (01) ==
LOC: OPS 07:54
PROVIDERS: PCP Nurse Practitioner Family; Visit Provider Internal Medicine Pulmonary Disease
DX: U07.1 COVID-19 (principal)
CPT/HCPCS: 96365

== ENCOUNTER → 2021-05-27 10:52 | Outpatient (BNVA) | payer MEDICAID, SELFPAY | PROVIDERS: PCP Nurse Practitioner Family; Visit Provider Psychiatry & Neurology Psychiatry | DX: F33.3 Major depressive disorder, recurrent, severe with psychotic symptoms (principal); F41.1 Generalized anxiety disorder | CPT/HCPCS: 99213 ==

== ENCOUNTER → 2021-06-29 08:48 | Outpatient (BNVA) | payer MEDICAID, SELFPAY | PROVIDERS: PCP Nurse Practitioner Family; Visit Provider Obstetrics & Gynecology | DX: Z12.4 Encounter for screening for malignant neoplasm of cervix (principal) | CPT/HCPCS: 87624 ==

== ENCOUNTER 2021-07-15 23:13 | Emergency (ER) | payer MEDICAID, SELFPAY ==
[2021-07-15 23:16] VITALS: PULSE 111; RESP 18; TEMP 36.4; BMI 45.4
--- NOTE | 2021-07-15 23:21 | W.ED.GENADLT ---
HPI - General Adult General: Chief complaint: General Medical Stated complaint: HIGH BLOOD SUGAR Time Seen by Provider: 07/15/21 23:15 Source: patient and EMS Mode of arrival: EMS Limitations: no limitations History of Present Illness: HPI narrative: 51-year-old female who has a history of hyperglycemia states she is forgotten to take all of her diabetic meds and insulin today then checked her blood sugar tonight and it was running high and she got concerned and called EMS patient's blood sugars been over 600 she denies any vomiting or diarrhea she denies any pain anywhere patient is hypertensive well does have a history of hypertension. Denies any worsening improving factors. Associated symptoms: Deny chest pain, dyspnea, headache(s), nausea, rash or vomiting Review of Systems Const: Denies: fever(s), chills, body aches or change in appetite Eyes: Denies: blurry vision or eye discomfort ENMT: Denies: throat pain or dental pain Card: Denies: chest pain Resp: Denies: dyspnea GI: Denies: abdominal pain, nausea, vomiting or diarrhea : Denies: dysuria Musc: Denies: neck pain or back pain Skin/Breast: Denies: rash Neuro: Denies: headache(s) Psych: Denies: depression Morgan/Lymph: Denies: easy bruising All/Imm: Denies: urticaria PFSH ED PFSH: Medical History Asthma CKD (chronic kidney disease) COPD (chronic obstructive pulmonary disease) Depression DM type 2 (diabetes mellitus, type 2) Hypertension Migraines Neuropathy ADAL (obstructive sleep apnea) Psychiatric care TIA (transient ischemic attack) Surgical History History of cholecystectomy History of tubal ligation Family History Mother Cancer Stage 4 kidney cancer Chronic kidney disease (CKD) Diabetes Hypertension Grandmother Cancer Maternal-Lung cancer Family/Other Cancer Maternal Aunt--Unknown Father Chronic kidney disease (CKD) Diabetes Hyperlipidemia Hypertension Daughter Diabetes Grandfather Stroke Maternal Denies family history of Ovarian cyst Anesthesia complication Bleeding disorder Thyroid disease Social History Smoking and tobacco status: former smoker Quit status (tobacco): has quit using tobacco Year quit tobacco: 2007 Former quit date comment: 3ppd x 1 year from [id number] Alcohol intake: current Alcohol intake frequency: holidays/special occasions only Marital status: Life Partner Physical Exam Const: COMMON NORMALS: no acute distress, patient oriented x3 and healthy appearing HENMT: COMMON NORMALS: normocephalic and atraumatic HEAD & SCALP: normocephalic and atraumatic Eye: COMMON NORMALS: Equal, round and reactive pupils present and EOMs intact bilaterally PUPIL: Yes Equal, round and reactive pupils present Neck/C-Spine: COMMON NORMALS: full ROM and supple Chest: COMMONS NORMALS: normal inspection of the chest and normal palpation of entire chest wall Resp: COMMON NORMALS: normal respiratory effort, No retractions, No use of accessory muscles and clear to auscultation bilaterally AUSCULTATION: clear to auscultation bilaterally Cardio: COMMON NORMALS: regular rate, regular rhythm and No murmurs present (Cardio) RATE: regular rate RHYTHM: regular rhythm GI: COMMON NORMALS: Normal to inspection, nondistended, normoactive bowel sounds present, Soft to palpation, non-tender and no masses PALPATION: Yes Soft to palpation Extremity: COMMON NORMALS: normal to inspection and full ROM Neuro: COMMON NORMALS: patient oriented x3, moves all extremities and no focal motor deficits Psych: COMMON NORMALS: mental status grossly normal, Normal thought process present and cooperative THOUGHT PROCESS: Normal thought process present Skin: COMMON NORMALS: no rashes or lesions noted and no wounds GENERAL SKIN EXAM: no rashes or lesions noted Course Vital Signs: Vital signs: Vital Signs Temperature 97.6 F 07/15/21 23:16 Pulse Rate 94 07/16/21 02:00 Respiratory Rate 18 07/16/21 01:08 Blood Pressure 126/78 07/16/21 04:23 Pulse Oximetry 97 07/16/21 02:00 MDM - General Adult MDM Narrative: Medical decision making narrative: Patient presents here with hyperglycemia due to noncompliance with her meds she can take her insulin and days patient is not DKA she has no ketones her blood sugar here is improving she feels improved as well she is stable for discharge informed her that is very important that she takes her meds as prescribed limit her carb intake she is to follow-up with PCP in 2 to 4 days return if worsening she had no vomiting no diarrhea she understands agrees to plan. Lab Data: Labs: Lab Results 07/15/21 07/15/21 07/15/21 23:22 23:36 23:36 WBC 7.9 10^3/uL 10^3/ uL (4.0-10.0) RBC 5.44 10^6/uL H 10 ^6/uL (4.1-5.3) Hgb 16.3 g/dL H g/dL (11.5-15.3) Hct 50.9 % H % (37.0-47.0) MCV 93.6 fl fl (81-99) MCH 30.0 pg pg (28.0-34.0) MCHC 32.0 g/dL g/dL (30.0-36.0) RDW 12.4 % % (12.1-15.1) Plt Count 232 10^3/cmm 10^3 /cmm (130-400) MPV 9.9 fL fL (7.4-10.4) Neut % (Auto) 57.0 % % Lymph % (Auto) 29.3 % % [place] % (Auto) 8.7 % % Eos % (Auto) 3.2 % % Baso % (Auto) 1.3 % % Neut # (Auto) 4.53 10^3/uL 10^3 /uL (1.8-7.7) Lymph # (Auto) 2.3 10^3/uL 10^3/ uL (0.8-4.8) [place] # (Auto) 0.7 10^3/uL 10^3/ uL (0.2-0.9) Eos # (Auto) 0.3 10^3/uL 10^3/ uL (0.0-0.8) Baso # (Auto) 0.1 10^3/uL 10^3/ uL (0.0-0.1) Nucleated RBC % (a uto) 0 % % Nucleated RBCs # 0.0 /100WBC /100W BC Sodium 127 mmol/L L mmol /L (136-145) Potassium 4.4 mmol/L mmol/L (3.5-5.1) Chloride 92 mmol/L L mmol/ L (98-107) Carbon Dioxide 18 mmol/L L mmol/ L (22-29) Anion Gap 21.4 H (5-19) BUN 9 mg/dL mg/dL (6-20) Creatinine 1.1 mg/dL H mg/dL (0.5-0.9) GFR Calculation 52.2 mL/min L mL/ min (90-130) Glucose 891 mg/dL H* mg/d L (65-115) POC Glucose > 600 mg/dL H* mg /dL (70-110) Calculated Osmolal ity 307 mOsm/kg H mOs m/kg (285-295) Calcium 9.3 mg/dL mg/dL (8.5-10.5) Total Bilirubin 0.3 mg/dL mg/dL (0.15-1.2) AST 12 U/L U/L (0-32) ALT 23 U/L U/L (0-33) Alkaline Phosphata se 110 IU/L H IU/L (35-105) Total Protein 7.2 g/dL g/dL (6.6-8.7) Albumin 4.6 g/dL g/dL (3.5-5.2) Globulin 2.6 g/dL g/dL (1.3-4.6) Serum Ketones 07/15/21 07/16/21 07/16/21 23:36 00:34 01:40 WBC RBC Hgb Hct MCV MCH MCHC RDW Plt Count MPV Neut % (Auto) Lymph % (Auto) [place] % (Auto) Eos % (Auto) Baso % (Auto) Neut # (Auto) Lymph # (Auto) [place] # (Auto) Eos # (Auto) Baso # (Auto) Nucleated RBC % (a uto) Nucleated RBCs # Sodium Potassium Chloride Carbon Dioxide Anion Gap BUN Creatinine GFR Calculation Glucose POC Glucose > 600 mg/dL H* mg /dL > 600 mg/dL H* mg /dL (70-110) (70-110) Calculated Osmolal ity Calcium Total Bilirubin AST ALT Alkaline Phosphata se Total Protein Albumin Globulin Serum Ketones Negative (Negative) 07/16/21 07/16/21 07/16/21 02:31 03:30 04:01 WBC RBC Hgb Hct MCV MCH MCHC RDW Plt Count MPV Neut % (Auto) Lymph % (Auto) [place] % (Auto) Eos % (Auto) Baso % (Auto) Neut # (Auto) Lymph # (Auto) [place] # (Auto) Eos # (Auto) Baso # (Auto) Nucleated RBC % (a uto) Nucleated RBCs # Sodium Potassium Chloride Carbon Dioxide Anion Gap BUN Creatinine GFR Calculation Glucose POC Glucose > 600 mg/dL H* mg /dL 551 mg/dL H* mg/d L 539 mg/dL H* mg/d L (70-110) (70-110) (70-110) Calculated Osmolal ity Calcium Total Bilirubin AST ALT Alkaline Phosphata se Total Protein Albumin Globulin Serum Ketones 07/16/21 05:02 WBC RBC Hgb Hct MCV MCH MCHC RDW Plt Count MPV Neut % (Auto) Lymph % (Auto) [place] % (Auto) Eos % (Auto) Baso % (Auto) Neut # (Auto) Lymph # (Auto) [place] # (Auto) Eos # (Auto) Baso # (Auto) Nucleated RBC % (a uto) Nucleated RBCs # Sodium Potassium Chloride Carbon Dioxide Anion Gap BUN Creatinine GFR Calculation Glucose POC Glucose 500 mg/dL H mg/dL (70-110) Calculated Osmolal ity Calcium Total Bilirubin AST ALT Alkaline Phosphata se Total Protein Albumin Globulin Serum Ketones Discharge Plan Discharge Patient Disposition: Home Clinical Impression: Hypertension, Hyperglycemia Condition: Stable Prescriptions: No Action budesonide-formoterol [Symbicort] 80-4.5 mcg/actuation HFA aerosol inhaler 2 puff inhalation BID Qty: 10.2 RF: 3 albuterol sulfate 90 mcg/actuation HFA aerosol inhaler 1 puff inhalation Q4H PRN (Reason: Shortness Of Breath) Qty: 8.5 RF: 3 Farxiga 10 mg tablet 10 mg PO BEDTIME RF: 0 promethazine 12.5 mg tablet 12.5 mg PO Q6H PRN (Reason: Nausea And Vomiting) RF: 0 fluconazole [Diflucan] 150 mg tablet 150 mg PO DAILY 5 Days Qty: 5 RF: 0 ipratropium-albuterol 0.5 mg-3 mg(2.5 mg base)/3 mL solution for nebulization 3 ml inhalation QID PRN (Reason: Shortness Of Breath) Qty: 90 RF: 3 lisinopril 40 mg tablet 40 mg PO BEDTIME Qty: 90 RF: 2 gabapentin 300 mg capsule 900 mg PO BEDTIME Qty: 90 RF: 1 clopidogrel 75 mg tablet 75 mg PO BEDTIME Qty: 90 RF: 1 Rexulti 2 mg tablet 2 mg PO BEDTIME Qty: 30 RF: 2 duloxetine 60 mg capsule,delayed release(DR/EC) 120 mg PO BEDTIME Qty: 60 RF: 2 prazosin 5 mg capsule 10 mg PO BEDTIME Qty: 60 RF: 2 mirtazapine 15 mg tablet 15 mg PO BEDTIME Qty: 30 RF: 2 hydroxyzine HCl 50 mg tablet 50 mg PO QID PRN (Reason: anxiety/insomnia) Qty: 120 RF: 2 ondansetron 4 mg tablet,disintegrating 4 mg PO Q6H PRN (Reason: nausea and vomiting) Qty: 14 RF: 0 cetirizine 10 mg Tablet 10 mg PO BEDTIME RF: 0 Victoza 3-Benedict 0.6 mg/0.1 mL (18 mg/3 mL) pen injector 1.8 mg SUBCUT DAILY RF: 0 metoprolol tartrate 100 mg tablet 100 mg PO BEDTIME RF: 0 multivitamin Tablet 1 tab PO DAILY RF: 0 atorvastatin 40 mg tablet 40 mg PO BEDTIME RF: 0 insulin lispro 100 unit/mL insulin pen 25 unit SUBCUT TID RF: 0 Dulera 100-5 mcg/actuation HFA aerosol inhaler 2 puff INHALATION BID RF: 0 furosemide [Lasix] 40 mg tablet 40 mg PO DAILY RF: 0 valacyclovir 1 gram tablet 1,000 mg PO BEDTIME RF: 0 Lantus Solostar U-100 Insulin 100 unit/mL (3 mL) insulin pen 60 unit SUBCUT QAM RF: 0 Discharge Orders: Discharge ED (Routine); Ordered 07/16/21 Ordered By: Lennox Anthony Referrals: Gail Reid MD [Primary Care Provider] - Discharge Diet: Advance as tolerated Discharge Activity: Resume usual activity Patient Instructions: Diabetic Hyperglycemia (ED) Coding Level of Care Code ED Personnel Recruiter for Jd Fwd Exam Comprehensive
[2021-07-15 23:25] VITALS: BP 200/140; PULSE 110; RESP 18; O2SAT 96
[2021-07-15] MEDS: labetalol 5 mg/mL SDV 20mL 10 MG IVP (23:36)
[2021-07-15] MEDS: sodium chloride 0.9% 1,000 ML 999 ML IV (23:38)
[2021-07-15] MEDS: insulin regular-human 100 units/1 mL 15 UNIT IVP (23:39)
[2021-07-15 23:43] LABS: Basophils # 0.1 10^3/uL (0.0-0.1); Basophils % 1.3 %; Eosinophils # 0.3 10^3/uL (0.0-0.8); Eosinophils % 3.2 %; Hematocrit 50.9 % (37.0-47.0); Hemoglobin 16.3 g/dL (11.5-15.3); Lymphocytes # 2.3 10^3/uL (0.8-4.8); Lymphocytes % 29.3 %; Mean Corpuscular Volume 93.6 fl (81-99); Mean Platelet Volume 9.9 fL (7.4-10.4); Monocytes # 0.7 10^3/uL (0.2-0.9); Monocytes % 8.7 %; Neutrophils # 4.53 10^3/uL (1.8-7.7); Nucleated Red Blood Cells % 0 %; Platelet Count 232 10^3/cmm (130-400); Red Blood Count 5.44 10^6/uL (4.1-5.3); Red Cell Distribution Width 12.4 % (12.1-15.1); White Blood Count 7.9 10^3/uL (4.0-10.0)
[2021-07-16 00:04] LABS: Ketone (Acetest) Serum Negative (Negative)
[2021-07-16 00:10] LABS: Alanine Aminotransferase 23 U/L (0-33); Albumin Level 4.6 g/dL (3.5-5.2); Alkaline Phosphatase 110 IU/L (35-105); Anion Gap 21.4 (5-19); Aspartate Amino Transferase 12 U/L (0-32); Blood Urea Nitrogen 9 mg/dL (6-20); Calcium 9.3 mg/dL (8.5-10.5); Carbon Dioxide 18 mmol/L (22-29); Chloride 92 mmol/L (98-107); Globulin 2.6 g/dL (1.3-4.6); Glomerular Filtration Rate 52.2 mL/min (90-130); Potassium 4.4 mmol/L (3.5-5.1); Sodium 127 mmol/L (136-145); Total Bilirubin 0.3 mg/dL (0.15-1.2); Total Protein 7.2 g/dL (6.6-8.7)
[2021-07-16 00:23] VITALS: BP 163/107; PULSE 92; O2SAT 96
[2021-07-16 00:24] LABS: Glucose 891 mg/dL (65-115); Osmolality Calculated 307 mOsm/kg (285-295)
[2021-07-16] MEDS: insulin regular-human 100 units/1 mL 10 UNIT IVP ×3 (00:40→04:12)
[2021-07-16] MEDS: sodium chloride 0.9% 1,000 ML 999 ML IV (00:48)
[2021-07-16 01:08] VITALS: BP 138/102; PULSE 99; RESP 18; O2SAT 95
[2021-07-16 01:55] LABS: Glucose Point of Care > 600 mg/dL (70-110)
[2021-07-16 01:55] LABS: Glucose Point of Care > 600 mg/dL (70-110)
[2021-07-16 01:55] LABS: Glucose Point of Care > 600 mg/dL (70-110)
[2021-07-16 02:00] VITALS: BP 144/113; PULSE 94; O2SAT 97
[2021-07-16 02:34] LABS: Glucose Point of Care > 600 mg/dL (70-110)
[2021-07-16] MEDS: sodium chloride 0.9% 1,000 ML 150 ML IV (02:40)
[2021-07-16] MEDS: labetalol 5 mg/mL SDV 20mL 10 MG IVP (02:40)
[2021-07-16 03:34] LABS: Glucose Point of Care 551 mg/dL (70-110)
[2021-07-16 03:52] VITALS: BP 137/79
[2021-07-16 04:05] LABS: Glucose Point of Care 539 mg/dL (70-110)
[2021-07-16 04:23] VITALS: BP 126/78
[2021-07-16 05:05] LABS: Glucose Point of Care 500 mg/dL (70-110)
[2021-07-16 05:29] VITALS: BP 146/78; PULSE 80; RESP 18; O2SAT 98
== END 2021-07-16 05:31 | disposition home or self-care (01) ==
PROVIDERS: Emergency Provider Emergency Medicine; PCP Pediatrics
DX: E11.65 Type 2 diabetes mellitus with hyperglycemia (principal); I10 Essential (primary) hypertension; Z79.02 Long term (current) use of antithrombotics/antiplatelets; Z79.4 Long term (current) use of insulin; J44.9 Chronic obstructive pulmonary disease, unspecified; E11.40 Type 2 diabetes mellitus with diabetic neuropathy, unspecified; Z86.73 Personal history of transient ischemic attack (TIA), and cerebral infarction without residual deficits; Z87.891 Personal history of nicotine dependence
CPT/HCPCS: 36416; 80053; 82009; 82962; 85025; 96361; 96374; 96375; 96376; 99284; J1815; J3490; J7030

== ENCOUNTER → 2021-07-30 14:52 | Outpatient (BNVA) | payer MEDICAID, SELFPAY | PROVIDERS: PCP Pediatrics; Visit Provider Internal Medicine Pulmonary Disease | DX: Z01.812 Encounter for preprocedural laboratory examination (principal) | CPT/HCPCS: 87635 ==

== ENCOUNTER 2021-08-06 09:26 | Outpatient (CLI) | payer MEDICAID, SELFPAY ==
--- NOTE | 2021-08-06 13:39 | PFTS_ITS ---
Date of Study:08/06/21 Date of Dictation: MECHANICS: Forced vital capacity (FVC) is normal. Forced expiratory volume in one second (FEV1) is reduced. FEV1/FVC is reduced. FLOW VOLUME LOOP: Reduced flow at all lung volumes. LUNG VOLUMES: Total lung capacity (TLC) is normal. Residual volume (RV) is minimally reduced. DIFFUSING CAPACITY FOR CARBON MONOXIDE: Normal. INTERPRETATION: The postbronchodilator spirometry is consistent with paradoxical bronchospasm. The postbronchodilator spirometry is consistent with moderate airflow obstruction. The prebronchodilator spirometry is nearly normal. Lung volumes are normal. Gas exchange (DLCO) is normal. MTDD
== END 2021-08-06 09:27 | disposition home or self-care (01) ==
PROVIDERS: PCP Pediatrics; Visit Provider Internal Medicine Pulmonary Disease
DX: J45.909 Unspecified asthma, uncomplicated (principal); R06.02 Shortness of breath
CPT/HCPCS: 94060; 94726; 94729; J7611

== ENCOUNTER → 2021-08-19 12:59 | Outpatient (BNVA) | payer MEDICAID, SELFPAY | PROVIDERS: PCP Pediatrics; Visit Provider Psychiatry & Neurology Psychiatry | DX: F33.3 Major depressive disorder, recurrent, severe with psychotic symptoms (principal); F41.1 Generalized anxiety disorder | CPT/HCPCS: 99213 ==

== ENCOUNTER → 2021-08-21 16:27 | Outpatient (BNVA) | payer MEDICAID, SELFPAY | PROVIDERS: PCP Pediatrics; Visit Provider Obstetrics & Gynecology | DX: N90.89 Other specified noninflammatory disorders of vulva and perineum (principal) | CPT/HCPCS: 88305; 88342 ==